=== PATIENT | male | born 1960 | race Caucasian/White ===

== ENCOUNTER 2018-08-12 09:05 | Inpatient (IN) | payer OTHER ==
--- OUTSIDE RECORDS SUMMARY | 2018-08-12 20:26 | XMS REPORT | Clinical Summary ---
:1960 Author Organization [facility] Address [address] [place] [address] Care Team Providers Name Role Phone Unknown, Phys Primary Care Provider Unavailable Allergies Active Allergy Reactions Severity Noted Date Comments Penicillins Hives 01/17/2017 Current Medications Prescription Sig. Disp. Refills Start Date End Date Status aspirin 81 mg chewable tablet 01/10/2017 Active atorvastatin (LIPITOR) 80 MG tablet 01/10/2017 Active ACCU-CHEK AMBER PLUS TEST STRP strip 12/29/2016 Active test strips carvedilol (COREG) 25 MG tablet 01/04/2017 Active clopidogrel (PLAVIX) 75 mg tablet 01/04/2017 Active isosorbide mononitrate (IMDUR) 60 MG 24 01/10/2017 Active hr tablet KLOR-CON 10 10 mEq CR tablet 01/04/2017 Active lisinopril (PRINIVIL,ZESTRIL) 40 mg 10/20/2016 Active tablet metFORMIN XR (GLUCOPHAGE-XR) 500 mg 24 11/17/2016 Active hr tablet Active Problems Problem Noted Date Ischemic cardiomyopathy 01/17/2017 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 Hypertension 01/17/2017 Centrilobular emphysema (HCC) 01/17/2017 Chest pain 01/17/2017 Family History Medical History Relation Name Comments Diabetes Brother Heart disease Brother Hypertension Brother Stroke Brother Diabetes Father Heart disease Father Hypertension Father Stroke Father Diabetes Mother Hypertension Mother Stroke Mother Diabetes Sister Hypertension Sister Relation Name Status Comments Brother Father Mother Alive Sister Social History Tobacco Use Types Packs/Day Years Used Date Former Smoker Cigarettes Alcohol Use Drinks/Week oz/Week Comments No Sex Assigned at Date Recorded Not on file Last Filed Vital Signs Not on file Plan of Treatment Health Maintenance Due Date Last Done Comments DIABETIC FOOT EXAM 1971 DIABETIC RETINAL EYE EXAM 1971 URINE MICROALBUMIN 1971 COLON CANCER SCREENING 2011 SHINGRIX VACCINE (#1) 2011 INFLUENZA VACCINE 06/12/2018 Results Not on fileafter 08/11/2017 Insurance Payer Benefit Plan / Group Subscriber ID Type Phone Address AETNA AETNA HMO,POS,EPO, MC/EC xxxxxxxxxx HMO Home: [id number] [phone] [id number]
[2018-08-12] MEDS ORDERED: GLUCAGON 1 MG/VIAL IM PRN (20:38)
[2018-08-12] MEDS ORDERED: D50W 25 GM/50 ML SYRINGE IV PRN (20:38)
[2018-08-12] MEDS: BUMETANIDE 1 MG TABLET PO SCH (22:10)
[2018-08-12] MEDS: ATORVASTATIN 40 MG TAB PO SCH (22:10)
[2018-08-12 23:19] LABS: Urine Appearance CLEAR; Urine Bilirubin NEGATIVE (NEG); Urine Blood NEGATIVE (NEG); Urine Color YELLOW; Urine Glucose 3+ (NEG); Urine Protein 1+ (NEG); Urine Specific Gravity 1.025 (1.005-1.030); Urine pH 5.5 (5.0-7.0)
[2018-08-12 23:59] LABS: Urine Bacteria <20 /HPF (NONE SEEN); Urine Culture Reflex Order NOT NEEDED; Urine RBC NONE SEEN /HPF (NONE SEEN)
--- NOTE | 2018-08-13 02:45 | FAST ---
SHIFT START DATE/TIME: 08/12/2018 19:00 (CDT) SHIFT END DATE/TIME: 08/13/2018 07:00 (CDT) NAME CRYSTAL BEAVER DATE OF : 1960 DATE OF ADMISSION: 08/12/2018 20:25 (CDT) PHONE: AGE: 57 N# [id number] GENDER: Male ENCOUNTER PHYSICIAN: Dr. Edmundo Glasgow M.D. ADMISSION DIAGNOSIS: - Stroke 01 - Left Body (Right Brain) (01.1) small right thalamic intraparenchymal hematoma. EATING: Activity did not occur on this shift EATING - SCORE: 0-UNK GROOMING: Wash, rinse, and dry hands GROOMING - STEP 1: Does the patient require assistance when grooming? Yes. GROOMING - STEP 2: Does the patient require the assistance of a helper? No. The patient only requires an assistive devic e, OR takes more than reasonable time to groom, OR there is a concern for safety as the patient groom s GROOMING - SCORE: 6-NICOLAS BATHING: Activity did not occur on this shift BATHING - SCORE: 0-UNK DRESSING - UPPER BODY: Patient is not dressing in public clothing ARTICLES SCORE Total number of steps: 0 DRESSING - UPPER BODY - SCORE: 0-UNK DRESSING - LOWER BODY: Patient is not dressing in public clothing ARTICLES SCORE Total number of steps: 0 DRESSING - LOWER BODY - SCORE: 0-UNK TOILETING: TOILETING - STEP 1: Does the patient require assistance with toileting? Yes. TOILETING - STEP 2: Does the patient require the assistance of a helper? No. TOILETING - SCORE: 6-NICOLAS BLADDER MANAGEMENT: BLADDER MANAGEMENT - STEP 1: Does the patient control the bladder completely and intentionally without equipment or devices or med ications, and is always continent? Yes. BLADDER MANAGEMENT - SCORE: 7-IND BOWEL MANAGEMENT: Activity did not occur on this shift BOWEL MANAGEMENT - SCORE: 7-IND TRANSFERS: BED, CHAIR, WHEELCHAIR: TRANSFERS: BED, CHAIR, WHEELCHAIR - STEP 1: Does the patient require assistance with bed, chair, or wheelchair transfers? Yes. TRANSFERS: BED, CHAIR, WHEELCHAIR - STEP 2: Does the patient require the assistance of a helper? No. Patient only requires an assistive device fo r bed, chair, wheelchair transfers such as a sliding board, grab bar, or brace, OR s/he takes more th an reasonable time, OR there is a safety concern when s/he performs the transfers TRANSFERS: BED, CHAIR, WHEELCHAIR - SCORE: 6-NICOLAS TRANSFERS: TOILET: TRANSFERS: TOILET - STEP 1: Does the patient require assistance with toilet transfers? Yes. TRANSFERS: TOILET - STEP 2: Does the patient require the assistance of a helper? No. Patient only requires an assistive device ayers ch as a grab bar or special seat, OR s/he takes more than reasonable time to perform toilet transfers , OR there is a safety concern when s/he performs toilet transfers. TRANSFERS: TOILET - SCORE: 6-NICOLAS TRANSFERS: SHOWER: Activity did not occur on this shift TRANSFERS: SHOWER - SCORE: 0-UNK TRANSFERS: TUB: Activity did not occur on this shift TRANSFERS: TUB - SCORE: 0-UNK LOCOMOTION: WALK: Activity did not occur on this shift LOCOMOTION: WALK - SCORE: 0-UNK LOCOMOTION: WHEELCHAIR: Activity did not occur on this shift LOCOMOTION: WHEELCHAIR - SCORE: 0-UNK COMPREHENSION: COMPREHENSION: TYPE: Both COMPREHENSION - STEP 1: Does the patient require help to understand complex and abstract ideas (such as current events, finan luc, discharge planning, medical issues, relationships, etc)? No. COMPREHENSION - STEP 2: Does the patient need extra time, require an assistive device (such as glasses for visual comprehensi on or a hearing aid for auditory comprehension) or does s/he have mild difficulty understanding compl ex and abstract information? Yes. COMPREHENSION - SCORE: 6-NICOLAS EXPRESSION EXPRESSION: TYPE: Both EXPRESSION - STEP 1: Does the patient require help expressing complex and abstract ideas (such as current events, finances , discharge planning, medical issues, relationships, etc)? No. EXPRESSION - STEP 2: Does the patient need extra time, require an assistive device (such as augmentive communication syste m or a communication board), OR does s/he have mild difficulty expressing complex and abstract ideas (including mild dysarthria or mild word-find problems)? No. EXPRESSION - SCORE: 7-IND SOCIAL INTERACTION: SOCIAL INTERACTION - STEP 1: Does the patient require a helper to interact with others in social and therapeutic situations? No. SOCIAL INTERACTION - STEP 2: Does the patient need extra time in social situations, OR does s/he interact with staff, other patien ts, and family members ONLY in structured environments, OR does s/he require medication for social in teraction? No. SOCIAL INTERACTION - SCORE: 7-IND PROBLEM SOLVING: PROBLEM SOLVING - STEP 1: Does the patient need help to solve complex problems such as managing a checking account or confronti ng interpersonal problems? No. PROBLEM SOLVING - STEP 2: Does the patient require extra time to make decisions or solve problems, OR does s/he have slight dif ficulty reading, initiating, or self-correcting in unfamiliar situations? Yes, patient needs extra ti me. PROBLEM SOLVING - SCORE: 6-NICOLAS MEMORY: MEMORY - STEP 1: Does the patient need help to remember frequently encountered people, daily routines, and executing r equests? No. MEMORY - STEP 2: Does the patient have slight difficulty recognizing frequently encountered people, daily routines, or executing requests without the need for repetition or using self-initiated or environmental cues to remember? No. MEMORY - SCORE: 7-IND SIGNATURE PANEL: The following modified sections: Eating - Score, Grooming - Score, Dressing - Upper Body - Score, Miles ssing - Lower Body - Score, Toileting - Score, Bladder Management - Score, Bowel Management - Score, Transfers: Bed, Chair, Wheelchair - Score, Transfers: Toilet - Score, Transfers: Shower - Score, Thompson sfers: Tub - Score, Locomotion: Walk - Score, Locomotion: Wheelchair - Score, Comprehension - Score, Expression - Score, Social Interaction - Score, Problem Solving - Score, Memory - Score were [electro nically] signed by Nafisa Alonso CNA on SunAug 13 2018 02:44:50 GMT-0500 (Central Daylight Time)
[2018-08-13 06:03] LABS: Absolute Lymphocytes (CBC) 1.2 K/uL (0.7-4.9); Absolute Monocytes 1.1 K/uL (0.1-1.3); Absolute Neutrophil 4.6 K/uL (1.8-8.0); Basophils % 0.9 % (0-1.3); Eosinophils % 3.7 % (0-4.4); Hematocrit 48.6 % (39.6-49.0); Lymphocytes % 16.2 % (15.3-44.8); MCH 29.8 pg (27.0-35.0); MPV 9.7 fL (7.6-11.3); Monocytes % 15.2 % (3.3-12.3); RBC Red Blood Cell Count 5.53 M/uL (4.33-5.43)
[2018-08-13 06:31] LABS: Albumin 3.4 g/dL (3.4-5.0); Magnesium 2.2 mg/dL (1.8-2.4); Potassium 3.8 mmol/L (3.5-5.1); Prealbumin 22.5 mg/dL (20-40)
[2018-08-13] MEDS: INSULIN -REGULAR HUMAN 50 UNIT/0.5 ML ML SQ SCH ×4 (07:30→20:38)
[2018-08-13] MEDS ORDERED: INSULIN GLARGINE 100 UNITS/ML SQ SCH ×2 (08:00)
[2018-08-13] MEDS ORDERED: LEVEMIR SQ SCH (08:00)
[2018-08-13] MEDS ORDERED: INSULIN LISPRO 100 UNIT/1 ML SQ SCH (08:00)
[2018-08-13] MEDS ORDERED: NOVOLOG SQ SCH (08:00)
[2018-08-13] MEDS ORDERED: ENOXAPARIN 30 MG/0.3 ML SQ SCH (08:00)
[2018-08-13] MEDS: CLOPIDOGREL 75 MG TABLET PO SCH (08:41)
[2018-08-13] MEDS: DIGOXIN 0.125 MG TABLET PO SCH (08:41)
[2018-08-13] MEDS: BUMETANIDE 1 MG TABLET PO SCH ×2 (08:42→20:25)
[2018-08-13] MEDS: POTASSIUM CL SA 10 MEQ TAB PO SCH (08:42)
[2018-08-13] MEDS: SERTRALINE HCL 50 MG TAB PO SCH (08:42)
[2018-08-13] MEDS: ISOSORBIDE MONO SR 60 MG TAB PO SCH (08:43)
[2018-08-13] MEDS: CARVEDILOL 25 MG TAB PO SCH ×2 (08:43→16:15)
[2018-08-13] MEDS: ASPIRIN EC 81 MG TAB PO SCH (08:43)
[2018-08-13] MEDS: AMLODIPINE 10 MG TAB PO SCH (08:43)
[2018-08-13] MEDS: NOVOLOG SQ SCH ×2 (11:41→16:40)
--- NOTE | 2018-08-13 15:03 | FAST ---
SHIFT START DATE/TIME: 08/13/2018 07:00 (CDT) SHIFT END DATE/TIME: 08/13/2018 19:00 (CDT) NAME CRYSTAL BEAVER DATE OF : 1960 DATE OF ADMISSION: 08/12/2018 20:25 (CDT) PHONE: AGE: 57 N# [id number] GENDER: Male ENCOUNTER PHYSICIAN: Dr. Edmundo Glasgow M.D. ADMISSION DIAGNOSIS: - Stroke 01 - Left Body (Right Brain) (01.1) small right thalamic intraparenchymal hematoma. EATING: EATING - STEP 1: Does the patient require assistance when eating? Yes. EATING - STEP 2: Does the patient require the assistance of a helper? No, patient only requires an assistive device, O R s/he takes more than reasonable time to eat, OR there is a safety concern, OR s/he requires modifie d food consistency EATING - SCORE: 6-NICOLAS GROOMING: Activity did not occur on this shift GROOMING - SCORE: 0-UNK BATHING: Activity did not occur on this shift BATHING - SCORE: 0-UNK DRESSING - UPPER BODY: Activity did not occur on this shift ARTICLES SCORE Total number of steps: 0 DRESSING - UPPER BODY - SCORE: 0-UNK DRESSING - LOWER BODY: Activity did not occur on this shift ARTICLES SCORE Total number of steps: 0 DRESSING - LOWER BODY - SCORE: 0-UNK TOILETING: TOILETING - STEP 1: Does the patient require assistance with toileting? Yes. TOILETING - STEP 2: Does the patient require the assistance of a helper? Yes. TOILETING - STEP 3: How much assistance does the patient require from the helper? Only supervision TOILETING - SCORE: 5-SUP BLADDER MANAGEMENT: BLADDER MANAGEMENT - STEP 1: Does the patient control the bladder completely and intentionally without equipment or devices or med ications, and is always continent? No. BLADDER MANAGEMENT - STEP 2: Does the patient require the assistance of a helper? No, patient only requires extra time BLADDER MANAGEMENT - SCORE: 6-NICOLAS BOWEL MANAGEMENT: Activity did not occur on this shift BOWEL MANAGEMENT - SCORE: 7-IND TRANSFERS: BED, CHAIR, WHEELCHAIR: TRANSFERS: BED, CHAIR, WHEELCHAIR - STEP 1: Does the patient require assistance with bed, chair, or wheelchair transfers? Yes. TRANSFERS: BED, CHAIR, WHEELCHAIR - STEP 2: Does the patient require the assistance of a helper? No. Patient only requires an assistive device fo r bed, chair, wheelchair transfers such as a sliding board, grab bar, or brace, OR s/he takes more th an reasonable time, OR there is a safety concern when s/he performs the transfers TRANSFERS: BED, CHAIR, WHEELCHAIR - SCORE: 6-NICOLAS TRANSFERS: TOILET: TRANSFERS: TOILET - STEP 1: Does the patient require assistance with toilet transfers? Yes. TRANSFERS: TOILET - STEP 2: Does the patient require the assistance of a helper? Yes. TRANSFERS: TOILET - STEP 3: How much assistance does the patient require from the helper? Only supervision, cuing, coaxing, OR he lp to set out transfer equipment or to lock brakes and/or lift foot rests TRANSFERS: TOILET - SCORE: 5-SUP TRANSFERS: SHOWER: Activity did not occur on this shift TRANSFERS: SHOWER - SCORE: 0-UNK TRANSFERS: TUB: Activity did not occur on this shift TRANSFERS: TUB - SCORE: 0-UNK LOCOMOTION: WALK: Activity did not occur on this shift LOCOMOTION: WALK - SCORE: 0-UNK LOCOMOTION: WHEELCHAIR: Activity did not occur on this shift LOCOMOTION: WHEELCHAIR - SCORE: 0-UNK COMPREHENSION: COMPREHENSION: TYPE: Both COMPREHENSION - STEP 1: Does the patient require help to understand complex and abstract ideas (such as current events, finan luc, discharge planning, medical issues, relationships, etc)? No. COMPREHENSION - STEP 2: Does the patient need extra time, require an assistive device (such as glasses for visual comprehensi on or a hearing aid for auditory comprehension) or does s/he have mild difficulty understanding compl ex and abstract information? Yes. COMPREHENSION - SCORE: 6-NICOLAS EXPRESSION EXPRESSION: TYPE: Both EXPRESSION - STEP 1: Does the patient require help expressing complex and abstract ideas (such as current events, finances , discharge planning, medical issues, relationships, etc)? No. EXPRESSION - STEP 2: Does the patient need extra time, require an assistive device (such as augmentive communication syste m or a communication board), OR does s/he have mild difficulty expressing complex and abstract ideas (including mild dysarthria or mild word-find problems)? Yes. EXPRESSION - SCORE: 6-NICOLAS SOCIAL INTERACTION: SOCIAL INTERACTION - STEP 1: Does the patient require a helper to interact with others in social and therapeutic situations? No. SOCIAL INTERACTION - STEP 2: Does the patient need extra time in social situations, OR does s/he interact with staff, other patien ts, and family members ONLY in structured environments, OR does s/he require medication for social in teraction? Yes, patient needs extra time SOCIAL INTERACTION - SCORE: 6-NICOLAS PROBLEM SOLVING: PROBLEM SOLVING - STEP 1: Does the patient need help to solve complex problems such as managing a checking account or confronti ng interpersonal problems? No. PROBLEM SOLVING - STEP 2: Does the patient require extra time to make decisions or solve problems, OR does s/he have slight dif ficulty reading, initiating, or self-correcting in unfamiliar situations? No. PROBLEM SOLVING - SCORE: 7-IND MEMORY: MEMORY - STEP 1: Does the patient need help to remember frequently encountered people, daily routines, and executing r equests? No. MEMORY - STEP 2: Does the patient have slight difficulty recognizing frequently encountered people, daily routines, or executing requests without the need for repetition or using self-initiated or environmental cues to remember? Yes. MEMORY - SCORE: 6-NICOLAS SIGNATURE PANEL: The following modified sections: Eating - Score, Grooming - Score, Bathing - Score, Dressing - Upper Body - Score, Dressing - Lower Body - Score, Toileting - Score, Bladder Management - Score, Bowel Man agement - Score, Transfers: Bed, Chair, Wheelchair - Score, Transfers: Toilet - Score, Transfers: Yee wer - Score, Transfers: Tub - Score, Locomotion: Walk - Score, Locomotion: Wheelchair - Score, Compre hension - Score, Expression - Score, Social Interaction - Score, Problem Solving - Score, Memory - Sc ore were [electronically] signed by Steven Berry on SunAug 13 2018 15:02:22 GMT-0500 (Central Daylight Time)
[2018-08-13] MEDS: ATORVASTATIN 40 MG TAB PO SCH (20:25)
[2018-08-13] MEDS: LEVEMIR SQ SCH (20:27)
[2018-08-14] MEDS: INSULIN -REGULAR HUMAN 50 UNIT/0.5 ML ML SQ SCH ×4 (07:30→20:39)
[2018-08-14] MEDS: NOVOLOG SQ SCH ×3 (08:08→17:23)
[2018-08-14] MEDS: POTASSIUM CL SA 10 MEQ TAB PO SCH (08:09)
[2018-08-14] MEDS: BUMETANIDE 1 MG TABLET PO SCH ×2 (08:09→20:38)
[2018-08-14] MEDS: AMLODIPINE 10 MG TAB PO SCH (08:10)
[2018-08-14] MEDS: CARVEDILOL 25 MG TAB PO SCH ×2 (08:11→17:00)
[2018-08-14] MEDS: ASPIRIN EC 81 MG TAB PO SCH (08:11)
[2018-08-14] MEDS: SERTRALINE HCL 50 MG TAB PO SCH (08:11)
[2018-08-14] MEDS: CLOPIDOGREL 75 MG TABLET PO SCH (08:12)
[2018-08-14] MEDS: ISOSORBIDE MONO SR 60 MG TAB PO SCH (08:12)
[2018-08-14] MEDS: LEVEMIR SQ SCH ×2 (08:14→20:45)
[2018-08-14] MEDS: DIGOXIN 0.125 MG TABLET PO SCH (08:18)
--- NOTE | 2018-08-14 16:35 | FAST ---
SHIFT START DATE/TIME: 08/14/2018 07:00 (CDT) SHIFT END DATE/TIME: 08/14/2018 19:00 (CDT) NAME CRYSTAL BEAVER DATE OF : 1960 DATE OF ADMISSION: 08/12/2018 20:25 (CDT) PHONE: AGE: 57 SSN# [id number] GENDER: Male ENCOUNTER PHYSICIAN: Dr. Edmundo Glasgow M.D. ADMISSION DIAGNOSIS: - Stroke 01 - Left Body (Right Brain) (01.1) small right thalamic intraparenchymal hematoma. EATING: EATING - STEP 1: Does the patient require assistance when eating? Yes. EATING - STEP 2: Does the patient require the assistance of a helper? No, patient only requires an assistive device, O R s/he takes more than reasonable time to eat, OR there is a safety concern, OR s/he requires modifie d food consistency EATING - SCORE: 6-NICOLAS GROOMING: Comb/brush hair Oral care Patient shaved Wash, rinse, and dry face Wash, rinse, and dry hands GROOMING - STEP 1: Does the patient require assistance when grooming? Yes. GROOMING - STEP 2: Does the patient require the assistance of a helper? No. The patient only requires an assistive devic e, OR takes more than reasonable time to groom, OR there is a concern for safety as the patient groom s GROOMING - SCORE: 6-NICOLAS BATHING: Activity did not occur on this shift BATHING - SCORE: 0-UNK DRESSING - UPPER BODY: Button down shirt or blouse - NOT tucked in (four steps) T-shirt/pullover shirt (four steps) ARTICLES SCORE Total number of steps: 8 DRESSING - UPPER BODY - STEP 1: Does the patient require help when dressing above the waist? Yes. DRESSING - UPPER BODY - STEP 2: Does the patient require the assistance of a helper? No. Patient only requires an assistive device, s uch as a button hook, velcro, or career services coordinator. OR s/he takes more than reasonable time as s/he dresses the upper body. OR there is a concern for safety when s/he dresses the upper body DRESSING - UPPER BODY - SCORE: 6-NICOLAS DRESSING - LOWER BODY: Elastic waist pants (three steps) Slip-on shoe - Left foot (one step) Slip-on shoe - Right foot (one step) ARTICLES SCORE Total number of steps: 5 DRESSING - LOWER BODY - STEP 1: Does the patient require help when dressing below the waist? Yes. DRESSING - LOWER BODY - STEP 2: Does the patient require the assistance of a helper? No. Patient requires an assistive device such as a career services coordinator. OR s/he takes more than reasonable time as s/he dresses the lower body, OR there is a con cern for safety when s/he dresses the lower body DRESSING - LOWER BODY - SCORE: 6-NICOLAS TOILETING: TOILETING - STEP 1: Does the patient require assistance with toileting? No. TOILETING - SCORE: 7-IND BLADDER MANAGEMENT: BLADDER MANAGEMENT - STEP 1: Does the patient control the bladder completely and intentionally without equipment or devices or med ications, and is always continent? Yes. BLADDER MANAGEMENT - SCORE: 7-IND BLADDER MANAGEMENT - FREQUENCY OF ACCIDENTS: BLADDER MANAGEMENT(FA) - STEP 1: How many accidents has the patient had during the current shift? 0 BOWEL MANAGEMENT: BOWEL MANAGEMENT - STEP 1: Does the patient control bowels completely and intentionally without equipment devices or medications AND is always continent? Yes. BOWEL MANAGEMENT - SCORE: 7-IND BOWEL MANAGEMENT - FREQUENCY OF ACCIDENTS: BOWEL MANAGEMENT(FA) - STEP 1: How many accidents has the patient had during the current shift? 0 TRANSFERS: BED, CHAIR, WHEELCHAIR: TRANSFERS: BED, CHAIR, WHEELCHAIR - STEP 1: Does the patient require assistance with bed, chair, or wheelchair transfers? No. TRANSFERS: BED, CHAIR, WHEELCHAIR - SCORE: 7-IND TRANSFERS: TOILET: TRANSFERS: TOILET - STEP 1: Does the patient require assistance with toilet transfers? No. TRANSFERS: TOILET - SCORE: 7-IND TRANSFERS: SHOWER: Activity did not occur on this shift TRANSFERS: SHOWER - SCORE: 0-UNK TRANSFERS: TUB: Activity did not occur on this shift TRANSFERS: TUB - SCORE: 0-UNK LOCOMOTION: WALK: LOCOMOTION: WALK - STEP 1: Does the patient need help to walk 150 feet? Yes. LOCOMOTION: WALK - STEP 2: How much assistance does the patient require to walk a minimum of 150 feet? Only supervision, cuing, or coaxing LOCOMOTION: WALK - SCORE: 5-SUP LOCOMOTION: WHEELCHAIR: Activity did not occur on this shift LOCOMOTION: WHEELCHAIR - SCORE: 0-UNK COMPREHENSION: COMPREHENSION: TYPE: Both COMPREHENSION - STEP 1: Does the patient require help to understand complex and abstract ideas (such as current events, finan luc, discharge planning, medical issues, relationships, etc)? No. COMPREHENSION - STEP 2: Does the patient need extra time, require an assistive device (such as glasses for visual comprehensi on or a hearing aid for auditory comprehension) or does s/he have mild difficulty understanding compl ex and abstract information? No. COMPREHENSION - SCORE: 7-IND EXPRESSION EXPRESSION: TYPE: Both EXPRESSION - STEP 1: Does the patient require help expressing complex and abstract ideas (such as current events, finances , discharge planning, medical issues, relationships, etc)? No. EXPRESSION - STEP 2: Does the patient need extra time, require an assistive device (such as augmentive communication syste m or a communication board), OR does s/he have mild difficulty expressing complex and abstract ideas (including mild dysarthria or mild word-find problems)? No. EXPRESSION - SCORE: 7-IND SOCIAL INTERACTION: SOCIAL INTERACTION - STEP 1: Does the patient require a helper to interact with others in social and therapeutic situations? No. SOCIAL INTERACTION - STEP 2: Does the patient need extra time in social situations, OR does s/he interact with staff, other patien ts, and family members ONLY in structured environments, OR does s/he require medication for social in teraction? No. SOCIAL INTERACTION - SCORE: 7-IND PROBLEM SOLVING: PROBLEM SOLVING - STEP 1: Does the patient need help to solve complex problems such as managing a checking account or confronti ng interpersonal problems? No. PROBLEM SOLVING - STEP 2: Does the patient require extra time to make decisions or solve problems, OR does s/he have slight dif ficulty reading, initiating, or self-correcting in unfamiliar situations? No. PROBLEM SOLVING - SCORE: 7-IND MEMORY: MEMORY - STEP 1: Does the patient need help to remember frequently encountered people, daily routines, and executing r equests? No. MEMORY - STEP 2: Does the patient have slight difficulty recognizing frequently encountered people, daily routines, or executing requests without the need for repetition or using self-initiated or environmental cues to remember? No. MEMORY - SCORE: 7-IND SIGNATURE PANEL: The following modified sections: Eating - Score, Grooming - Score, Bathing - Score, Dressing - Upper Body - Score, Dressing - Lower Body - Score, Toileting - Score, Bladder Management - Score, Bowel Man agement - Score, Transfers: Bed, Chair, Wheelchair - Score, Transfers: Toilet - Score, Transfers: Yee wer - Score, Transfers: Tub - Score, Locomotion: Walk - Score, Locomotion: Wheelchair - Score, Compre hension - Score, Expression - Score, Social Interaction - Score, Problem Solving - Score, Memory - Sc ore were [electronically] signed by Emperatriz Song, C.N.ARachael on SunAug 14 2018 16:34:37 T-0500 (Centra l Daylight Time)
--- NOTE | 2018-08-14 17:20 | R.PN ---
ENCOUNTER DATE AND TIME: 08/14/2018 17:15 (CDT) NAME CRYSTAL BEAVER DATE OF : 1960 DATE OF ADMISSION: 08/12/2018 20:25 (CDT) small right thalamic intraparenchymal hematomaCHIEF COMPLAINT: Right thalamic hemorragic stroke SUBJECTIVE: Pt denied any Shortness of Breath. Pt denied any depression. Ambulated 550' with standby assistance without an assistive device. He will have a day pass to obtain items for cooking activities today. VITAL SIGNS Temperature: 97.8 F SBP/DBP: 154/96 Pulse: 73 Resp: 16 MEDICATION ALLERGIES: No Known Drug Allergies (NKDA) ENVIRONMENTAL ALLERGIES: - Substance Allergies None Known - Other Allergies None Known NURSING: - Shower allowing shower - Lab Results blood Sugar Check ACHS - Bladder care per protocol - Skin care per protocol PRECAUTIONS: - Weight Bearing Precaution WBAT left LE ACTIVITIES OOB only with supervision THERAPIES: - Occupational Therapy Evaluate and Treat. Cognitive Retraining. Visual Perceptual Training. - Speech Therapy Memory Strategies. Expressive Language Skills. Speech Intelligibility Training. Cognitive Training. R eceptive Language Skills. - Physical Therapy Evaluate and Treat. PHYSICAL EXAM - Gen Alert and awake Lying in bed No apparent distress Oriented to: person, time, and place - Skin No skin breakdown. No abnormalities - Eyes No abnormalities - ENMT No abnormalities - Neck No abnormalities - CVS RRR - Chest Clear - Abd Soft - GI Non distended Deferred - No abnormalities - Ext No significant edema - MSK Unremarkable - Neuro Incoordination, left sided numbness and dysmetria, unsteady gait - Psych No abnormalities ASSESSMENT: Pt. is a 57 yo Right-handed male.On 08/06/2018 Pt. presented to [facility] with sudden onset of left-side weakness.On 08/06/2018 he was admitted to [facility] with diagnosis small rig ht thalamic intraparenchymal hematoma.His impairment category is Stroke 01 - Left Body (Right Brain) (01.1).Pre-morbidly, Pt. was independent/mod-I in Communication, Social Cognition, Self-Care, Sphinc ter Control, Transfers Control, and Locomotion; and he had good Sphincter Control.Currently, he has d eficits of Communication, Social Cognition, Balance, Self-Care, Endurance, Safety Awareness, Transfer s Control, and Locomotion.Pt. is now referred to [facility] for acute in-patie nt rehabilitation in order to maximize patient's functional independence in activities of daily livin g, strength, ROM, and mobility.- Rehab Goal Patient has realistic goal of being discharged at assistance level 6-Eddie to reside at Home with Fam maurice/Relatives. MDM/PLAN: - Physical Therapy Gait dysfunction - to improve, our physical therapists will perform initial evaluation of pt's statu s upon admission and devise an individualized program for Gait Training, and Wheel Chair mobility Inability to transfer - to improve, our physical therapists will perform initial evaluation of pt's status upon admission and devise an individualized program for Bed mobility Need for home safety evaluation - to improve, our physical therapists will perform initial evaluatio n of pt's status upon admission and devise an individualized program for Home Evaluation Need in caregiver upon discharge - to improve, our physical therapists will perform initial evaluati on of pt's status upon admission and devise an individualized program for Caregiver Training Edema - to improve, our physical therapists will perform initial evaluation of pt's status upon admis gracia and devise an individualized program for Elevation Training, and Lymphedema Therapy New precaution - to improve, our physical therapists will perform initial evaluation of pt's status upon admission and devise an individualized program for Patient precaution education Poor balance - to improve, our physical therapists will perform initial evaluation of pt's status up on admission and devise an individualized program for Balance Training Poor endurance - to improve, our physical therapists will perform initial evaluation of pt's status upon admission and devise an individualized program for Endurance Training Weakness - to improve, our physical therapists will perform initial evaluation of pt's status upon a dmission and devise an individualized program for Aquatic Therapy, Neuromuscular Reeducation, and Str engthening Achieving independence - to improve, our physical therapists will perform initial evaluation of pt's status upon admission and devise an individualized program for Community Reintegration Activities - Occupational Therapy ADL deficits - to improve, our occupation therapists will perform initial evaluation of pt's status upon admission and devise an individualized program for Bathing, Bed mobility, Community Reintegratio n, Cooking, Dressing, Eating, Fine Motor Skills, Grooming, Homemaking, Kitchen Mobility, Laundry, Pat ient Education, Safety Awareness, Splinting - Positioning, Transfers(Toilet, Tub, Shower), and Wheel Chair Management Cognitive deficits - to improve, our occupation therapists will perform initial evaluation of pt's s tatus upon admission and devise an individualized program for Cognition - orientation Need for pet caretaker - to improve, our occupation therapists will perform initial evaluation of pt's status upon admission and devise an individualized program for Caregiver Training Weakness - to improve, our occupation therapists will perform initial evaluation of pt's status upon admission and devise an individualized program for Aquatic Therapy, Balance, Endurance, UE ROM, and UE strengthening - Diet Type Continue Cardiac - Diet - Liquid Texture Continue Regular - Tube Feed Continue N/A - Lab Results blood Sugar Check ACHS - Bladder care per protocol - Weight Bearing Precaution WBAT left LE - Skin care per protocol - Diet - Solid Texture Continue Regular - Shower allowing shower for Dementia, TBI, Stroke, or others FUNCTIONAL STATUS: UPDATED AT WEEKLY TEAM CONFERENCE - Bladder Same accident frequency: 7-Ind - No accidents in the past 7 days - Bowel Same accident frequency: 7-Ind - No accidents in the past 7 days - Walking Same score based on distance walked: 1(<=50ft) FUNCTIONAL STATUS: - Self-Care A. Eating sup B. Grooming Arely C. Bathing Arely D. Dressing - Upper Eddie E. Dressing - Lower Arely F. Toileting Arely - Sphincter Control G: Bladder control Ind H: Bowel control Ind - Transfers Control I. Bed/Chair/Wheelchair CGA J. Toilet CGA K. Tub/Shower CGA - Locomotion L. Walk/Wheelchair (B) Dep M. Stairs - Communication N. Comprehension (B) sup O. Expression (B) sup - Social Cognition P. Social Interaction sup Q. Problem Solving sup R. Memory sup - Endurance Fair - Balance Poor - Safety Awareness Poor CURRENT FUNC. DEFICITS: Communication, Social Cognition, Balance, Self-Care, Endurance, Safety Awareness, Transfers Control, and Locomotion SIGNATURE PANEL: (CDT)
[2018-08-14] MEDS: ATORVASTATIN 40 MG TAB PO SCH (20:38)
--- NOTE | 2018-08-15 01:15 | FAST ---
SHIFT START DATE/TIME: 08/14/2018 19:00 (CDT) SHIFT END DATE/TIME: 08/15/2018 07:00 (CDT) NAME CRYSTAL BEAVER DATE OF : 1960 DATE OF ADMISSION: 08/12/2018 20:25 (CDT) PHONE: AGE: 57 N# [id number] GENDER: Male ENCOUNTER PHYSICIAN: Dr. Edmundo Glasgow M.D. ADMISSION DIAGNOSIS: - Stroke 01 - Left Body (Right Brain) (01.1) small right thalamic intraparenchymal hematoma. EATING: Activity did not occur on this shift EATING - SCORE: 0-UNK GROOMING: Oral care Wash, rinse, and dry face Wash, rinse, and dry hands GROOMING - STEP 1: Does the patient require assistance when grooming? No. GROOMING - SCORE: 7-IND BATHING: Activity did not occur on this shift BATHING - SCORE: 0-UNK DRESSING - UPPER BODY: Patient is not dressing in public clothing ARTICLES SCORE Total number of steps: 0 DRESSING - UPPER BODY - SCORE: 0-UNK DRESSING - LOWER BODY: Patient is not dressing in public clothing ARTICLES SCORE Total number of steps: 0 DRESSING - LOWER BODY - SCORE: 0-UNK TOILETING: TOILETING - STEP 1: Does the patient require assistance with toileting? No. TOILETING - SCORE: 7-IND BLADDER MANAGEMENT: BLADDER MANAGEMENT - STEP 1: Does the patient control the bladder completely and intentionally without equipment or devices or med ications, and is always continent? Yes. BLADDER MANAGEMENT - SCORE: 7-IND BOWEL MANAGEMENT: BOWEL MANAGEMENT - STEP 1: Does the patient control bowels completely and intentionally without equipment devices or medications AND is always continent? Yes. BOWEL MANAGEMENT - SCORE: 7-IND TRANSFERS: BED, CHAIR, WHEELCHAIR: TRANSFERS: BED, CHAIR, WHEELCHAIR - STEP 1: Does the patient require assistance with bed, chair, or wheelchair transfers? No. TRANSFERS: BED, CHAIR, WHEELCHAIR - SCORE: 7-IND TRANSFERS: TOILET: TRANSFERS: TOILET - STEP 1: Does the patient require assistance with toilet transfers? No. TRANSFERS: TOILET - SCORE: 7-IND TRANSFERS: SHOWER: Activity did not occur on this shift TRANSFERS: SHOWER - SCORE: 0-UNK TRANSFERS: TUB: Activity did not occur on this shift TRANSFERS: TUB - SCORE: 0-UNK LOCOMOTION: WALK: Activity did not occur on this shift LOCOMOTION: WALK - SCORE: 0-UNK LOCOMOTION: WHEELCHAIR: Activity did not occur on this shift LOCOMOTION: WHEELCHAIR - SCORE: 0-UNK COMPREHENSION: COMPREHENSION: TYPE: Both COMPREHENSION - STEP 1: Does the patient require help to understand complex and abstract ideas (such as current events, finan luc, discharge planning, medical issues, relationships, etc)? No. COMPREHENSION - STEP 2: Does the patient need extra time, require an assistive device (such as glasses for visual comprehensi on or a hearing aid for auditory comprehension) or does s/he have mild difficulty understanding compl ex and abstract information? Yes. COMPREHENSION - SCORE: 6-NICOLAS EXPRESSION EXPRESSION: TYPE: Both EXPRESSION - STEP 1: Does the patient require help expressing complex and abstract ideas (such as current events, finances , discharge planning, medical issues, relationships, etc)? No. EXPRESSION - STEP 2: Does the patient need extra time, require an assistive device (such as augmentive communication syste m or a communication board), OR does s/he have mild difficulty expressing complex and abstract ideas (including mild dysarthria or mild word-find problems)? No. EXPRESSION - SCORE: 7-IND SOCIAL INTERACTION: SOCIAL INTERACTION - STEP 1: Does the patient require a helper to interact with others in social and therapeutic situations? No. SOCIAL INTERACTION - STEP 2: Does the patient need extra time in social situations, OR does s/he interact with staff, other patien ts, and family members ONLY in structured environments, OR does s/he require medication for social in teraction? No. SOCIAL INTERACTION - SCORE: 7-IND PROBLEM SOLVING: PROBLEM SOLVING - STEP 1: Does the patient need help to solve complex problems such as managing a checking account or confronti ng interpersonal problems? No. PROBLEM SOLVING - STEP 2: Does the patient require extra time to make decisions or solve problems, OR does s/he have slight dif ficulty reading, initiating, or self-correcting in unfamiliar situations? No. PROBLEM SOLVING - SCORE: 7-IND MEMORY: MEMORY - STEP 1: Does the patient need help to remember frequently encountered people, daily routines, and executing r equests? No. MEMORY - STEP 2: Does the patient have slight difficulty recognizing frequently encountered people, daily routines, or executing requests without the need for repetition or using self-initiated or environmental cues to remember? No. MEMORY - SCORE: 7-IND SIGNATURE PANEL: The following modified sections: Eating - Score, Grooming - Score, Dressing - Upper Body - Score, Miles ssing - Lower Body - Score, Toileting - Score, Bladder Management - Score, Bowel Management - Score, Transfers: Bed, Chair, Wheelchair - Score, Transfers: Toilet - Score, Transfers: Shower - Score, Thompson sfers: Tub - Score, Locomotion: Walk - Score, Locomotion: Wheelchair - Score, Comprehension - Score, Expression - Score, Social Interaction - Score, Problem Solving - Score, Memory - Score were [electro nically] signed by Nafisa Alonso CNA on SunAug 15 2018 01:15:20 GMT-0500 (Central Daylight Time)
[2018-08-15 06:43] LABS: Absolute Monocytes 1.1 K/uL (0.1-1.3); Absolute Neutrophil 4.3 K/uL (1.8-8.0); Basophils % 1.1 % (0-1.3); Hematocrit 50.3 % (39.6-49.0); Lymphocytes % 14.5 % (15.3-44.8); MCH 29.7 pg (27.0-35.0); MCV 86.9 fL (80-100); MPV 9.5 fL (7.6-11.3); Monocytes % 16.6 % (3.3-12.3); RBC Red Blood Cell Count 5.79 M/uL (4.33-5.43)
[2018-08-15 07:17] LABS: Albumin 3.7 g/dL (3.4-5.0); Potassium 3.9 mmol/L (3.5-5.1); Prealbumin 26.2 mg/dL (20-40)
[2018-08-15] MEDS: INSULIN -REGULAR HUMAN 50 UNIT/0.5 ML ML SQ SCH ×4 (07:30→21:14)
[2018-08-15] MEDS: POTASSIUM CL SA 10 MEQ TAB PO SCH (08:12)
[2018-08-15] MEDS: BUMETANIDE 1 MG TABLET PO SCH ×2 (08:12→21:08)
[2018-08-15] MEDS: AMLODIPINE 10 MG TAB PO SCH (08:14)
[2018-08-15] MEDS: ISOSORBIDE MONO SR 60 MG TAB PO SCH (08:14)
[2018-08-15] MEDS: CLOPIDOGREL 75 MG TABLET PO SCH (08:14)
[2018-08-15] MEDS: ASPIRIN EC 81 MG TAB PO SCH (08:14)
[2018-08-15] MEDS: SERTRALINE HCL 50 MG TAB PO SCH (08:15)
[2018-08-15] MEDS: CARVEDILOL 25 MG TAB PO SCH ×2 (08:15→16:48)
[2018-08-15] MEDS: LEVEMIR SQ SCH ×2 (08:18→21:09)
[2018-08-15] MEDS: NOVOLOG SQ SCH ×3 (08:18→16:50)
[2018-08-15] MEDS: DIGOXIN 0.125 MG TABLET PO SCH (08:19)
[2018-08-15 09:23] LABS: Blood Morphology Comment NOT SEEN (NOT SEEN); Platelet Estimate ADEQ
--- NOTE | 2018-08-15 15:45 | FAST ---
SHIFT START DATE/TIME: 08/15/2018 07:00 (CDT) SHIFT END DATE/TIME: 08/15/2018 19:00 (CDT) NAME CRYSTAL BEAVER DATE OF : 1960 DATE OF ADMISSION: 08/12/2018 20:25 (CDT) PHONE: AGE: 57 SSN# [id number] GENDER: Male ENCOUNTER PHYSICIAN: Dr. Edmundo Glasgow M.D. ADMISSION DIAGNOSIS: - Stroke 01 - Left Body (Right Brain) (01.1) small right thalamic intraparenchymal hematoma. EATING: EATING - STEP 1: Does the patient require assistance when eating? No. EATING - SCORE: 7-IND GROOMING: GROOMING - STEP 1: Does the patient require assistance when grooming? No. GROOMING - SCORE: 7-IND BATHING: Activity did not occur on this shift BATHING - SCORE: 0-UNK DRESSING - UPPER BODY: Button down shirt or blouse - NOT tucked in (four steps) ARTICLES SCORE Total number of steps: 4 DRESSING - UPPER BODY - STEP 1: Does the patient require help when dressing above the waist? No. DRESSING - UPPER BODY - SCORE: 7-IND DRESSING - LOWER BODY: Elastic waist pants (three steps) Slip-on shoe - Left foot (one step) Slip-on shoe - Right foot (one step) Sock - Left foot (one step) Sock - Right foot (one step) Underwear (three steps) ARTICLES SCORE Total number of steps: 10 DRESSING - LOWER BODY - STEP 1: Does the patient require help when dressing below the waist? No. DRESSING - LOWER BODY - SCORE: 7-IND TOILETING: TOILETING - STEP 1: Does the patient require assistance with toileting? No. TOILETING - SCORE: 7-IND BLADDER MANAGEMENT: BLADDER MANAGEMENT - STEP 1: Does the patient control the bladder completely and intentionally without equipment or devices or med ications, and is always continent? Yes. BLADDER MANAGEMENT - SCORE: 7-IND BLADDER MANAGEMENT - FREQUENCY OF ACCIDENTS: BLADDER MANAGEMENT(FA) - STEP 1: How many accidents has the patient had during the current shift? 0 BOWEL MANAGEMENT: BOWEL MANAGEMENT - STEP 1: Does the patient control bowels completely and intentionally without equipment devices or medications AND is always continent? Yes. BOWEL MANAGEMENT - SCORE: 7-IND BOWEL MANAGEMENT - FREQUENCY OF ACCIDENTS: BOWEL MANAGEMENT(FA) - STEP 1: How many accidents has the patient had during the current shift? 0 TRANSFERS: BED, CHAIR, WHEELCHAIR: TRANSFERS: BED, CHAIR, WHEELCHAIR - STEP 1: Does the patient require assistance with bed, chair, or wheelchair transfers? No. TRANSFERS: BED, CHAIR, WHEELCHAIR - SCORE: 7-IND TRANSFERS: TOILET: TRANSFERS: TOILET - STEP 1: Does the patient require assistance with toilet transfers? No. TRANSFERS: TOILET - SCORE: 7-IND TRANSFERS: SHOWER: Activity did not occur on this shift TRANSFERS: SHOWER - SCORE: 0-UNK TRANSFERS: TUB: Activity did not occur on this shift TRANSFERS: TUB - SCORE: 0-UNK LOCOMOTION: WALK: LOCOMOTION: WALK - STEP 1: Does the patient need help to walk 150 feet? No. LOCOMOTION: WALK - STEP 2: Does the patient need an assistive device (such as an orthosis, prosthesis, crutches, or walker) to g o 150 feet, OR does s/he take more than reasonable time, OR is there a concern for safety? No. LOCOMOTION: WALK - SCORE: 7-IND LOCOMOTION: WHEELCHAIR: Activity did not occur on this shift LOCOMOTION: WHEELCHAIR - SCORE: 0-UNK COMPREHENSION: COMPREHENSION: TYPE: Both COMPREHENSION - STEP 1: Does the patient require help to understand complex and abstract ideas (such as current events, finan luc, discharge planning, medical issues, relationships, etc)? No. COMPREHENSION - STEP 2: Does the patient need extra time, require an assistive device (such as glasses for visual comprehensi on or a hearing aid for auditory comprehension) or does s/he have mild difficulty understanding compl ex and abstract information? No. COMPREHENSION - SCORE: 7-IND EXPRESSION EXPRESSION: TYPE: Both EXPRESSION - STEP 1: Does the patient require help expressing complex and abstract ideas (such as current events, finances , discharge planning, medical issues, relationships, etc)? No. EXPRESSION - STEP 2: Does the patient need extra time, require an assistive device (such as augmentive communication syste m or a communication board), OR does s/he have mild difficulty expressing complex and abstract ideas (including mild dysarthria or mild word-find problems)? No. EXPRESSION - SCORE: 7-IND SOCIAL INTERACTION: SOCIAL INTERACTION - STEP 1: Does the patient require a helper to interact with others in social and therapeutic situations? No. SOCIAL INTERACTION - STEP 2: Does the patient need extra time in social situations, OR does s/he interact with staff, other patien ts, and family members ONLY in structured environments, OR does s/he require medication for social in teraction? No. SOCIAL INTERACTION - SCORE: 7-IND PROBLEM SOLVING: PROBLEM SOLVING - STEP 1: Does the patient need help to solve complex problems such as managing a checking account or confronti ng interpersonal problems? No. PROBLEM SOLVING - STEP 2: Does the patient require extra time to make decisions or solve problems, OR does s/he have slight dif ficulty reading, initiating, or self-correcting in unfamiliar situations? No. PROBLEM SOLVING - SCORE: 7-IND MEMORY: MEMORY - STEP 1: Does the patient need help to remember frequently encountered people, daily routines, and executing r equests? No. MEMORY - STEP 2: Does the patient have slight difficulty recognizing frequently encountered people, daily routines, or executing requests without the need for repetition or using self-initiated or environmental cues to remember? No. MEMORY - SCORE: 7-IND SIGNATURE PANEL: The following modified sections: Eating - Score, Grooming - Score, Bathing - Score, Dressing - Upper Body - Score, Dressing - Lower Body - Score, Toileting - Score, Bladder Management - Score, Bowel Man agement - Score, Transfers: Bed, Chair, Wheelchair - Score, Transfers: Toilet - Score, Transfers: Yee wer - Score, Transfers: Tub - Score, Locomotion: Walk - Score, Locomotion: Wheelchair - Score, Compre hension - Score, Expression - Score, Social Interaction - Score, Problem Solving - Score, Memory - Sc ore were [electronically] signed by Jah ArmstrongNRichie on SunAug 15 2018 15:44:44 GMT-0500 (Centra l Daylight Time)
--- NOTE | 2018-08-15 19:02 | R.PN ---
ENCOUNTER DATE AND TIME: 08/15/2018 19:00 (CDT) NAME CRYSTAL BEAVER DATE OF : 1960 DATE OF ADMISSION: 08/12/2018 20:25 (CDT) small right thalamic intraparenchymal hematomaCHIEF COMPLAINT: Right thalamic hemorragic stroke SUBJECTIVE: Pt denied any Shortness of Breath. Pt denied any depression. Ambulated 1000' with independence without an assistive device. He did cooking activities today with modified independence. VITAL SIGNS Temperature: 97.8 F SBP/DBP: 156/89 Pulse: 79 Resp: 16 MEDICATION ALLERGIES: No Known Drug Allergies (NKDA) ENVIRONMENTAL ALLERGIES: - Substance Allergies None Known - Other Allergies None Known NURSING: - Shower allowing shower - Lab Results blood Sugar Check ACHS - Bladder care per protocol - Skin care per protocol PRECAUTIONS: - Weight Bearing Precaution WBAT left LE ACTIVITIES OOB only with supervision THERAPIES: - Occupational Therapy Evaluate and Treat. Cognitive Retraining. Visual Perceptual Training. - Speech Therapy Memory Strategies. Expressive Language Skills. Speech Intelligibility Training. Cognitive Training. R eceptive Language Skills. - Physical Therapy Evaluate and Treat. PHYSICAL EXAM - Gen Alert and awake Lying in bed No apparent distress Oriented to: person, time, and place - Skin No skin breakdown. No abnormalities - Eyes No abnormalities - ENMT No abnormalities - Neck No abnormalities - CVS RRR - Chest Clear - Abd Soft - GI Non distended Deferred - No abnormalities - Ext No significant edema - MSK Unremarkable - Neuro Incoordination, left sided numbness and dysmetria, unsteady gait - Psych No abnormalities ASSESSMENT: Pt. is a 57 yo Right-handed male.On 08/06/2018 Pt. presented to [facility] with sudden onset of left-side weakness.On 08/06/2018 he was admitted to [facility] with diagnosis small rig ht thalamic intraparenchymal hematoma.His impairment category is Stroke 01 - Left Body (Right Brain) (01.1).Pre-morbidly, Pt. was independent/mod-I in Communication, Social Cognition, Self-Care, Sphinc ter Control, Transfers Control, and Locomotion; and he had good Sphincter Control.Currently, he has d eficits of Communication, Social Cognition, Balance, Self-Care, Endurance, Safety Awareness, Transfer s Control, and Locomotion.Pt. is now referred to [facility] for acute in-patie nt rehabilitation in order to maximize patient's functional independence in activities of daily livin g, strength, ROM, and mobility.- Rehab Goal Patient has realistic goal of being discharged at assistance level 6-Eddie to reside at Home with Fam maurice/Relatives. MDM/PLAN: - Physical Therapy Gait dysfunction - to improve, our physical therapists will perform initial evaluation of pt's statu s upon admission and devise an individualized program for Gait Training, and Wheel Chair mobility Inability to transfer - to improve, our physical therapists will perform initial evaluation of pt's status upon admission and devise an individualized program for Bed mobility Need for home safety evaluation - to improve, our physical therapists will perform initial evaluatio n of pt's status upon admission and devise an individualized program for Home Evaluation Need in caregiver upon discharge - to improve, our physical therapists will perform initial evaluati on of pt's status upon admission and devise an individualized program for Caregiver Training Edema - to improve, our physical therapists will perform initial evaluation of pt's status upon admi ssion and devise an individualized program for Elevation Training, and Lymphedema Therapy New precaution - to improve, our physical therapists will perform initial evaluation of pt's status upon admission and devise an individualized program for Patient precaution education Poor balance - to improve, our physical therapists will perform initial evaluation of pt's status up on admission and devise an individualized program for Balance Training Poor endurance - to improve, our physical therapists will perform initial evaluation of pt's status upon admission and devise an individualized program for Endurance Training Weakness - to improve, our physical therapists will perform initial evaluation of pt's status upon a dmission and devise an individualized program for Aquatic Therapy, Neuromuscular Reeducation, and Str engthening Achieving independence - to improve, our physical therapists will perform initial evaluation of pt's status upon admission and devise an individualized program for Community Reintegration Activities - Occupational Therapy ADL deficits - to improve, our occupation therapists will perform initial evaluation of pt's status upon admission and devise an individualized program for Bathing, Bed mobility, Community Reintegratio n, Cooking, Dressing, Eating, Fine Motor Skills, Grooming, Homemaking, Kitchen Mobility, Laundry, Pat ient Education, Safety Awareness, Splinting - Positioning, Transfers(Toilet, Tub, Shower), and Wheel Chair Management Cognitive deficits - to improve, our occupation therapists will perform initial evaluation of pt's s tatus upon admission and devise an individualized program for Cognition - orientation Need for healthcare network consultant - to improve, our occupation therapists will perform initial evaluation of pt's status upon admission and devise an individualized program for Caregiver Training Weakness - to improve, our occupation therapists will perform initial evaluation of pt's status upon admission and devise an individualized program for Aquatic Therapy, Balance, Endurance, UE ROM, and UE strengthening - Diet Type Continue Cardiac - Diet - Liquid Texture Continue Regular - Tube Feed Continue N/A - Lab Results blood Sugar Check ACHS - Bladder care per protocol - Weight Bearing Precaution WBAT left LE - Skin care per protocol - Diet - Solid Texture Continue Regular - Shower allowing shower for Dementia, TBI, Stroke, or others FUNCTIONAL STATUS: UPDATED AT WEEKLY TEAM CONFERENCE - Bladder Same accident frequency: 7-Ind - No accidents in the past 7 days - Bowel Same accident frequency: 7-Ind - No accidents in the past 7 days - Walking Same score based on distance walked: 1(<=50ft) FUNCTIONAL STATUS: - Self-Care A. Eating sup B. Grooming Arely C. Bathing Arely D. Dressing - Upper Eddie E. Dressing - Lower Arely F. Toileting Arely - Sphincter Control G: Bladder control Ind H: Bowel control Ind - Transfers Control I. Bed/Chair/Wheelchair CGA J. Toilet CGA K. Tub/Shower CGA - Locomotion L. Walk/Wheelchair (B) Dep M. Stairs - Communication N. Comprehension (B) sup O. Expression (B) sup - Social Cognition P. Social Interaction sup Q. Problem Solving sup R. Memory sup - Endurance Fair - Balance Poor - Safety Awareness Poor CURRENT FUNC. DEFICITS: Communication, Social Cognition, Balance, Self-Care, Endurance, Safety Awareness, Transfers Control, and Locomotion SIGNATURE PANEL: (CDT)
[2018-08-15] MEDS: ATORVASTATIN 40 MG TAB PO SCH (21:09)
--- NOTE | 2018-08-16 01:31 | FAST ---
SHIFT START DATE/TIME: 08/15/2018 19:00 (CDT) SHIFT END DATE/TIME: 08/16/2018 07:00 (CDT) NAME CRYSTAL BEAVER DATE OF : 1960 DATE OF ADMISSION: 08/12/2018 20:25 (CDT) PHONE: AGE: 57 N# [id number] GENDER: Male ENCOUNTER PHYSICIAN: Dr. Edmundo Glasgow M.D. ADMISSION DIAGNOSIS: - Stroke 01 - Left Body (Right Brain) (01.1) small right thalamic intraparenchymal hematoma. EATING: Activity did not occur on this shift EATING - SCORE: 0-UNK GROOMING: Oral care Wash, rinse, and dry face Wash, rinse, and dry hands GROOMING - STEP 1: Does the patient require assistance when grooming? No. GROOMING - SCORE: 7-IND BATHING: Activity did not occur on this shift BATHING - SCORE: 0-UNK DRESSING - UPPER BODY: Patient is not dressing in public clothing ARTICLES SCORE Total number of steps: 0 DRESSING - UPPER BODY - SCORE: 0-UNK DRESSING - LOWER BODY: Patient is not dressing in public clothing ARTICLES SCORE Total number of steps: 0 DRESSING - LOWER BODY - SCORE: 0-UNK TOILETING: TOILETING - STEP 1: Does the patient require assistance with toileting? No. TOILETING - SCORE: 7-IND BLADDER MANAGEMENT: BLADDER MANAGEMENT - STEP 1: Does the patient control the bladder completely and intentionally without equipment or devices or med ications, and is always continent? Yes. BLADDER MANAGEMENT - SCORE: 7-IND BOWEL MANAGEMENT: BOWEL MANAGEMENT - STEP 1: Does the patient control bowels completely and intentionally without equipment devices or medications AND is always continent? Yes. BOWEL MANAGEMENT - SCORE: 7-IND TRANSFERS: BED, CHAIR, WHEELCHAIR: TRANSFERS: BED, CHAIR, WHEELCHAIR - STEP 1: Does the patient require assistance with bed, chair, or wheelchair transfers? No. TRANSFERS: BED, CHAIR, WHEELCHAIR - SCORE: 7-IND TRANSFERS: TOILET: TRANSFERS: TOILET - STEP 1: Does the patient require assistance with toilet transfers? No. TRANSFERS: TOILET - SCORE: 7-IND TRANSFERS: SHOWER: Activity did not occur on this shift TRANSFERS: SHOWER - SCORE: 0-UNK TRANSFERS: TUB: Activity did not occur on this shift TRANSFERS: TUB - SCORE: 0-UNK LOCOMOTION: WALK: Activity did not occur on this shift LOCOMOTION: WALK - SCORE: 0-UNK LOCOMOTION: WHEELCHAIR: Activity did not occur on this shift LOCOMOTION: WHEELCHAIR - SCORE: 0-UNK COMPREHENSION: COMPREHENSION: TYPE: Both COMPREHENSION - STEP 1: Does the patient require help to understand complex and abstract ideas (such as current events, finan luc, discharge planning, medical issues, relationships, etc)? No. COMPREHENSION - STEP 2: Does the patient need extra time, require an assistive device (such as glasses for visual comprehensi on or a hearing aid for auditory comprehension) or does s/he have mild difficulty understanding compl ex and abstract information? Yes. COMPREHENSION - SCORE: 6-NICOLAS EXPRESSION EXPRESSION: TYPE: Both EXPRESSION - STEP 1: Does the patient require help expressing complex and abstract ideas (such as current events, finances , discharge planning, medical issues, relationships, etc)? No. EXPRESSION - STEP 2: Does the patient need extra time, require an assistive device (such as augmentive communication syste m or a communication board), OR does s/he have mild difficulty expressing complex and abstract ideas (including mild dysarthria or mild word-find problems)? No. EXPRESSION - SCORE: 7-IND SOCIAL INTERACTION: SOCIAL INTERACTION - STEP 1: Does the patient require a helper to interact with others in social and therapeutic situations? No. SOCIAL INTERACTION - STEP 2: Does the patient need extra time in social situations, OR does s/he interact with staff, other patien ts, and family members ONLY in structured environments, OR does s/he require medication for social in teraction? Yes, patient requires medication for social interaction SOCIAL INTERACTION - SCORE: 6-NICOLAS PROBLEM SOLVING: PROBLEM SOLVING - STEP 1: Does the patient need help to solve complex problems such as managing a checking account or confronti ng interpersonal problems? No. PROBLEM SOLVING - STEP 2: Does the patient require extra time to make decisions or solve problems, OR does s/he have slight dif ficulty reading, initiating, or self-correcting in unfamiliar situations? No. PROBLEM SOLVING - SCORE: 7-IND MEMORY: MEMORY - STEP 1: Does the patient need help to remember frequently encountered people, daily routines, and executing r equests? No. MEMORY - STEP 2: Does the patient have slight difficulty recognizing frequently encountered people, daily routines, or executing requests without the need for repetition or using self-initiated or environmental cues to remember? No. MEMORY - SCORE: 7-IND SIGNATURE PANEL: The following modified sections: Eating - Score, Grooming - Score, Dressing - Upper Body - Score, Miles ssing - Lower Body - Score, Toileting - Score, Bladder Management - Score, Bowel Management - Score, Transfers: Bed, Chair, Wheelchair - Score, Transfers: Toilet - Score, Transfers: Shower - Score, Thompson sfers: Tub - Score, Locomotion: Walk - Score, Locomotion: Wheelchair - Score, Comprehension - Score, Expression - Score, Social Interaction - Score, Problem Solving - Score, Memory - Score were [electro nically] signed by Naifsa Alonso CNA on SunAug 16 2018 01:31:06 GMT-0500 (Central Daylight Time)
[2018-08-16] MEDS: INSULIN -REGULAR HUMAN 50 UNIT/0.5 ML ML SQ SCH ×2 (07:30→12:13)
[2018-08-16] MEDS: LEVEMIR SQ SCH (07:50)
[2018-08-16] MEDS: NOVOLOG SQ SCH ×2 (07:52→12:00)
[2018-08-16] MEDS: ASPIRIN EC 81 MG TAB PO SCH (08:17)
[2018-08-16] MEDS: DIGOXIN 0.125 MG TABLET PO SCH (08:17)
[2018-08-16] MEDS: CLOPIDOGREL 75 MG TABLET PO SCH (08:18)
[2018-08-16] MEDS: POTASSIUM CL SA 10 MEQ TAB PO SCH (08:18)
[2018-08-16] MEDS: SERTRALINE HCL 50 MG TAB PO SCH (08:18)
[2018-08-16] MEDS: ISOSORBIDE MONO SR 60 MG TAB PO SCH (08:18)
[2018-08-16] MEDS: CARVEDILOL 25 MG TAB PO SCH (08:19)
[2018-08-16] MEDS: AMLODIPINE 10 MG TAB PO SCH (08:19)
[2018-08-16] MEDS: BUMETANIDE 1 MG TABLET PO SCH (08:19)
--- NOTE | 2018-08-16 10:27 | P.RH.PN ---
Estimated Length of Stay: 7 Expected Discharge Date: 08/16/18 Discharge Disposition Plan: Home Family Support: Yes Card Dealer Goal: Mobility, Transfers, Self Care Vital Signs: Last Vital Signs Temp 97.6 F 08/15/18 20:00 Pulse 72 08/16/18 08:19 Resp 18 08/15/18 20:00 BP 145/87 H 08/16/18 08:19 Pulse Ox 98 08/15/18 20:00 Laboratory: Laboratory Last Values WBC 6.7 K/uL (4.3-10.9) 08/15/18 06:30 RBC 5.79 M/uL (4.33-5.43) H 08/15/18 06:30 Hgb 17.2 g/dL (13.6-17.9) 08/15/18 06:30 Hct 50.3 % (39.6-49.0) H 08/15/18 06:30 MCV 86.9 fL (80-100) 08/15/18 06:30 MCH 29.7 pg (27.0-35.0) 08/15/18 06:30 MCHC 34.2 g/dL (32.0-36.0) 08/15/18 06:30 RDW 13.8 % (12.1-15.2) 08/15/18 06:30 Plt Count 207 K/uL (152-406) 08/15/18 06:30 MPV 9.5 fL (7.6-11.3) 08/15/18 06:30 Neutrophils % 63.8 % (41.7-73.7) 08/15/18 06:30 Lymphocytes % 14.5 % (15.3-44.8) L 08/15/18 06:30 Monocytes % 16.6 % (3.3-12.3) H 08/15/18 06:30 Eosinophils % 4.0 % (0-4.4) 08/15/18 06:30 Basophils % 1.1 % (0-1.3) 08/15/18 06:30 Absolute Neutrophils 4.3 K/uL (1.8-8.0) 08/15/18 06:30 Segmented Neutrophils 65 % (40-80) 08/15/18 06:30 Band Neutrophils 1 % (0-1) 08/15/18 06:30 Absolute Lymphocytes 1.0 K/uL (0.7-4.9) 08/15/18 06:30 Lymphocytes 22 % (15-42) 08/15/18 06:30 Monocytes 8 % (0-10) 08/15/18 06:30 Absolute Monocytes 1.1 K/uL (0.1-1.3) 08/15/18 06:30 Eosinophils 3 % (0-3) 08/15/18 06:30 Absolute Eosinophils 0.3 K/uL (0-0.5) 08/15/18 06:30 Basophils 1 % (0-1) 08/15/18 06:30 Absolute Basophils 0.1 K/uL (0-0.5) 08/15/18 06:30 Morphology Comment Not seen (NOT SEEN) 08/15/18 06:30 Sodium 139 mmol/L (136-145) 08/15/18 06:30 Potassium 3.9 mmol/L (3.5-5.1) 08/15/18 06:30 Chloride 99 mmol/L (98-107) 08/15/18 06:30 Carbon Dioxide 33 mmol/L (21-32) H 08/15/18 06:30 BUN 32 mg/dL (7-18) H 08/15/18 06:30 Creatinine 1.70 mg/dL (0.55-1.3) H 08/15/18 06:30 Estimated GFR 42 mL/min (=/>90) L 08/15/18 06:30 Glucose 140 mg/dL (74-106) H 08/15/18 06:30 POC Glucose 244 mg/dl (65-120) H 08/15/18 21:01 Calcium 9.0 mg/dL (8.5-10.1) 08/15/18 06:30 Magnesium 2.2 mg/dL (1.8-2.4) 08/13/18 05:40 Albumin 3.7 g/dL (3.4-5.0) 08/15/18 06:30 Prealbumin 26.2 mg/dL (20-40) 08/15/18 06:30 Urine Color Yellow 08/12/18 22:40 Urine Appearance Clear 08/12/18 22:40 Urine pH 5.5 (5.0-7.0) 08/12/18 22:40 Ur Specific [place] 1.025 (1.005-1.030) 08/12/18 22:40 Urine Ketones Negative (NEG) 08/12/18 22:40 Urine Blood Negative (NEG) 08/12/18 22:40 Urine Nitrite Negative (NEG) 08/12/18 22:40 Urine Bilirubin Negative (NEG) 08/12/18 22:40 Urine Urobilinogen 1.0 mg/dL (0.2-1.0) 08/12/18 22:40 Ur Leukocyte Esterase Negative (NEG) 08/12/18 22:40 Urine RBC None seen /HPF (NONE SEEN) 08/12/18 22:40 Urine WBC <5 /HPF (<5) 08/12/18 22:40 Ur Squamous Epith Cells <5 /HPF (NONE SEEN) 08/12/18 22:40 Urine Bacteria <20 /HPF (NONE SEEN) 08/12/18 22:40 Urine Culture Reflexed Not needed 08/12/18 22:40 Urine Glucose 3+ (NEG) H 08/12/18 22:40 Urine Total Protein 1+ (NEG) H 08/12/18 22:40 Weight: 222 lb 2 oz Wound Present: No Closed Surgical Incision Present: No Negative Pressure Wound Therapy Present: No Physician Update: He has moderate right hip pain causing limping. His blood work shows elevated blood sugars. He will follow up with his PCP. He is modified independent with his physical and occupational therapy. He will be discharged today. Medication Issues: Aspirin 81mg Daily PO. Plavix 75mg Daily PO Functional Improvement: Patient has met all short-term and long-term goals, w/ the exception of a car transfer at this time. Patient is Ind. w/ all activities. 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 Please see the Rehabilitation Signature page for all necessary signatures.
--- NOTE | 2018-08-16 13:00 | FAST ---
ENCOUNTER DATE AND TIME: 08/16/2018 08:00 (CDT) NAME CRYSTAL BEAVER DATE OF : 1960 DATE OF ADMISSION: 08/12/2018 20:25 (CDT) PHONE: AGE: 57 SSN# [id number] GENDER: Male ENCOUNTER PHYSICIAN: Dr. Edmundo Glasgow M.D. ADMISSION DIAGNOSIS: - Stroke 01 - Left Body (Right Brain) (01.1) small right thalamic intraparenchymal hematoma. EATING: Activity did not occur on this shift EATING - SCORE: 0-UNK GROOMING: Activity did not occur on this shift GROOMING - SCORE: 0-UNK BATHING: Activity did not occur on this shift BATHING - SCORE: 0-UNK DRESSING - UPPER BODY: Activity did not occur on this shift Patient is not dressing in public clothing ARTICLES SCORE Total number of steps: 0 DRESSING - UPPER BODY - SCORE: 0-UNK DRESSING - LOWER BODY: Activity did not occur on this shift Patient is not dressing in public clothing ARTICLES SCORE Total number of steps: 0 DRESSING - LOWER BODY - SCORE: 0-UNK TOILETING: Activity did not occur on this shift TOILETING - SCORE: 0-UNK BLADDER MANAGEMENT: Activity did not occur on this shift BLADDER MANAGEMENT - SCORE: 7-IND BOWEL MANAGEMENT: Activity did not occur on this shift BOWEL MANAGEMENT - SCORE: 7-IND TRANSFERS: BED, CHAIR, WHEELCHAIR: TRANSFERS: BED, CHAIR, WHEELCHAIR - STEP 1: Does the patient require assistance with bed, chair, or wheelchair transfers? No. TRANSFERS: BED, CHAIR, WHEELCHAIR - SCORE: 7-IND TRANSFERS: TOILET: Activity did not occur on this shift TRANSFERS: TOILET - SCORE: 0-UNK TRANSFERS: SHOWER: Activity did not occur on this shift TRANSFERS: SHOWER - SCORE: 0-UNK TRANSFERS: TUB: Activity did not occur on this shift TRANSFERS: TUB - SCORE: 0-UNK LOCOMOTION: WALK: LOCOMOTION: WALK - STEP 1: Does the patient need help to walk 150 feet? No. LOCOMOTION: WALK - STEP 2: Does the patient need an assistive device (such as an orthosis, prosthesis, crutches, or walker) to g o 150 feet, OR does s/he take more than reasonable time, OR is there a concern for safety? No. LOCOMOTION: WALK - SCORE: 7-IND LOCOMOTION: WHEELCHAIR: Activity did not occur on this shift LOCOMOTION: WHEELCHAIR - SCORE: 0-UNK LOCOMOTION: STAIRS: LOCOMOTION: STAIRS - STEP 1: Does the patient need help to go up and down 12 to 14 stairs? No. LOCOMOTION: STAIRS - STEP 2: Does the patient require an assistive device - such as handrails or cane - to go up and down one flig ht of stairs, OR does s/he take more than reasonable time, OR is there a concern for safety? Yes, the patient requires an assistive device LOCOMOTION: STAIRS - SCORE: 6-NICOLAS COMPREHENSION: COMPREHENSION - SCORE: 0-UNK EXPRESSION EXPRESSION - SCORE: 0-UNK SOCIAL INTERACTION: SOCIAL INTERACTION - SCORE: 0-UNK PROBLEM SOLVING: PROBLEM SOLVING - SCORE: 0-UNK MEMORY: MEMORY - SCORE: 0-UNK SIGNATURE PANEL: The following modified sections: Transfers: Bed, Chair, Wheelchair - Score, Transfers: Toilet - Score , Locomotion: Walk - Score, Locomotion: Wheelchair - Score, Locomotion: Stairs - Score were [electron liya] signed by Terrence Valadez PT on SunAug 16 2018 12:59:15 T-0500 (Central Daylight Time)
== END 2018-08-16 14:40 | disposition home health service (06) | DRG 57 ==
LOC: 5TH 20:24
PROVIDERS: ADMIT Psychiatry & Neurology Neurology with Special Qualifications in Child Neurology; ATTEND Psychiatry & Neurology Neurology with Special Qualifications in Child Neurology
DX: I69.354 Hemiplegia and hemiparesis following cerebral infarction affecting left non-dominant side (principal); I13.0 Hypertensive heart and chronic kidney disease with heart failure and stage 1 through stage 4 chronic kidney disease, or unspecified chronic kidney disease; E11.40 Type 2 diabetes mellitus with diabetic neuropathy, unspecified; E11.22 Type 2 diabetes mellitus with diabetic chronic kidney disease; N18.9 Chronic kidney disease, unspecified; I25.10 Atherosclerotic heart disease of native coronary artery without angina pectoris
CPT/HCPCS: 36415; 80048; 81001; 82040; 82962; 83735; 84134; 85025; 87086; 87088

== ENCOUNTER 2021-09-21 07:15 | Day surgery (SDC) | payer OTHER ==
[2021-09-20 13:07] LABS: Basophils % 0.5 % (0-1.3); Hematocrit 42.2 % (39.6-49.0); Lymphocytes % 10.4 % (15.3-44.8); MPV 8.5 fL (7.6-11.3)
[2021-09-20 13:16] LABS: Potassium 4.6 mmol/L (3.5-5.1)
--- NOTE | 2021-09-20 13:40 | RAD REPORT ---
EXAM DESCRIPTION: RAD - Chest Pa And Lat (2 Views) - 09/20/2021 1:22 pm CLINICAL HISTORY: PRE-OP, debridement put COMPARISON: None TECHNIQUE: Frontal and lateral views of the chest were obtained. FINDINGS: The lungs are normal volume. No dense mass or consolidation. On this baseline study the pe rihilar markings and vasculature are mildly prominent with mild prominence of the bibasilar interstit ial pattern. Single lead defibrillator is in place. Trachea is midline. Heart size is upper normal. Pulmonary vasculature is still within range of normal. No pleural effusion or pneumothorax seen. No acute bony finding noted. No aortic abnormality. IMPRESSION: No peripheral mass or consolidation. No significant degree of failure or volume overload identifiable. Baseline study shows mild prominence of the perihilar vasculature in the lower lung field markings. A mild component of failure or volume overload cannot be excluded on this baseline study.
[2021-09-21] MEDS ORDERED: CEFAZOLIN/NS 1gm 1 GM/50 ML BAG ONE (07:35)
[2021-09-21] MEDS ORDERED: NA CHLORIDE 0.9% 1,000 ML ONE (07:35)
[2021-09-21] MEDS ORDERED: COLLAGENASE 30 GM OINTMENT TOP ONE (09:35)
[2021-09-21] MEDS ORDERED: HYDROCODONE/APAP 7.5/325 MG TAB ONE (11:00)
--- NOTE | 2021-09-21 11:22 | EKG ---
Test Date: 2021-09-20 Test Time: 13:06:26 Clinical Rehab Liaison: TRACY MEASUREMENT RESULTS: Intervals: Rate: 97 LA: 186 QRSD: 98 QT: 402 QTc: 510 [place]: P: 55 LA: 186 QRS: 78 T: 123 INTERPRETIVE STATEMENTS: Sinus rhythm with premature atrial complexes Nonspecific ST and T wave abnormality Prolonged QT Abnormal ECG No previous ECG available for comparison Electronically Signed On 09-21-21 11:20:20 PATIENT SAFETY TECH by Benjamin Carreno
[2021-09-21 11:45] VITALS: BP 113/82; TEMP 97.2; O2SAT 94
--- NOTE | 2021-09-21 16:03 | OP ---
Date of Procedure: 09/21/2021 Surgeon: Delroy Vazquez MD Preoperative Diagnosis: Nonhealing wound, left lower extremity x2. Postoperative Diagnosis: Nonhealing wound, left lower extremity x2. Procedure: Excisional debridement of left lower leg wounds x2, 12 x 6 cm to subcutaneous tissue. Estimated Blood Loss: Minimal. Specimen: Debridement tissue, mostly fibrin. Finding: As above. Anesthesia: General. Complications: None. Disposition: The patient tolerated the procedure in stable condition and taken to Recovery in good g eneral condition. Procedure In Detail: The patient was brought to the OR, placed in supine position. General anesthes ia begun. The patient was placed in the supine position. Prepped and draped in usual sterile fashio n, and then scissors and curettes were used to debride the necrotic fibrin in the posterior left ankl e and foot as well as the curette until good bleeding tissue was obtained which was controlled with c autery. There was some tendon that was necrosis as well and that was excised as well. Wound irrigat ed. Bleeding controlled with cautery. A 95% of the fibrin was debrided without difficulty and then wound irrigated, bleeding controlled with cautery again, and then collagenase dressing applied. Woun d size total was 12 x 6 cm and debridement took place down through the subcutaneous tissue. Subseque ntly collagenase dressing applied. Sterile dressing applied and then the patient awakened and taken to Recovery in good general condition. Discharge Note: The patient will go to Day Surgery and home when stable. Disposition: Home. Condition: Stable. Discharge Instructions: Resume home medications and diet. Activity as tolerated. Tylenol No.3 one tablet p.o. q.4 p.r.n. pain. Collagenase to wound daily. The patient follow up in the [facility] in 1 week. Call for appointment. /MODL Voice ID: [id number] Report ID: [id number]
== END 2021-09-21 11:30 | disposition home or self-care (01) ==
LOC: OR 07:15
PROVIDERS: ATTEND Surgery
PROC: 0JBR0ZZ Excision of Left Foot Subcutaneous Tissue and Fascia, Open Approach (ICD-10-PCS; principal; 2021-09-21 08:30)
DX: S91.002A Unspecified open wound, left ankle, initial encounter (principal); S91.302A Unspecified open wound, left foot, initial encounter; I96 Gangrene, not elsewhere classified; Z20.822 Contact with and (suspected) exposure to COVID-19
CPT/HCPCS: 93005; 85025; 80048; 36415; 82947 ×2; 88304; 71046; 11042; U0003; J3590; J0690; J7030; 88302

== ENCOUNTER 2022-01-04 12:02 | Emergency (ER) | payer OTHER ==
--- OUTSIDE RECORDS SUMMARY | 2022-01-04 12:07 | XMS REPORT | Continuity of Care Document ---
:[address] [facility] t Address [address] [place] [address] Care Team Providers Name Role Phone CTR, ADMIN MED Primary Care Physician Unavailable LAURA Attending Clinician Unavailable Doctor Unassigned, Name Attending Clinician Unavailable Laura MD Attending Clinician DEANDRE HUNTER Admitting Clinician Unavailable Payers Payer Name Policy Type Policy Number Effective Date Expiration Date Medardo MUR[place] [id number] 2019 [employer] 00:00:00 Problems Condition Condition Condition Status Onset Resolution Last Treating Co mments Source Name Details Category Date Date Treatment Clinician Date Hypertensi Hypertensi Disease Active U nivers ve ve 12-08 [place] emergency [place] [facility] [place] HFrEF HFrEF Disease Active Univers (heart (heart 12-07 ity of failure failure 00:00: [place] with with 00 Medical reduced reduced Branch ejection ejection fraction) fraction) Pulmonary Pulmonary Disease Active Uni vers edema edema 12-07 ity of 00:00: [place] 00 Medical Branch ACS (acute ACS (acute Disease Active 2019-11 U nivers coronary coronary 11-20 ity of syndrome) syndrome) [place] Ulcer of Ulcer of Disease Active Unive rs foot foot 07-13 ity of 00:00: [place] 00 Medical Branch 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 current current Added use of use of automatic insulin insulin ally from request for surgery [id number] Diabetic Diabetic Disease Active Overview: Un shea ulcer of ulcer of 07-13 Formattin ity of midfoot midfoot 00:00: g of this [place] associated associated 00 note Me dical with type with type might be Br anch 2 diabetes 2 diabetes different mellitus, mellitus, from the with with original. necrosis necrosis Added of bone, of bone, automatic unspecifie unspecifie ally from d d request laterality laterality for surgery [id number] NSTEMI NSTEMI Disease Active Univers (non-ST (non-ST 3-10 ity of elevated elevated 00:00: [place] myocardial myocardial 00 Me dical infarction infarction Br anch ) ) ICD ICD Disease Active 2018-11 Univers (implantab (implantab 0-03 it y of le le 00:00: [place] cardiovert cardiovert 00 Me dical er-defibri er-defibri Br anch llator), llator), single, in single, in situ situ Obesity Obesity Disease Active Univers (BMI (BMI 9- ity of 30-39.9) 30-39.9) 00:00: [place] 00 Medical Branch ELENA ELENA Disease Active Univers (obstructi (obstructi 08-07 it y of ve sleep ve sleep 00:00: [place] apnea) apnea) 00 Medical Branch Type 2 Type 2 Disease Active Univers myocardial myocardial 9- it [place] of infarction infarction [place]:00[place] ICH ICH Disease Active Univers (intracere (intracere 9- it y of bral bral 00:00: [place] hemorrhage hemorrhage 00 Me dical ) ) Branch Troponin Troponin Disease Active Unive rs level level 9-26 ity of elevated elevated 00:00: [place] 00 Medical Branch Acute on Acute on Disease Active Unive rs chronic chronic 9-25 ity of combined combined 00:00: [place] systolic systolic 00 Medica l and and Branch diastolic diastolic congestive congestive heart heart failure failure Chest pain Chest pain Disease Active U nivers 5-03 ity of 00:00: [place] 00 Medical Branch 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 ICD10 Diagnosis Term [employer] Utility DM DM Disease Active Univers (diabetes (diabetes 03-13 ity of mellitus) mellitus) 00:[place] CAD CAD Disease Active Univers (coronary (coronary 03-13 ity of artery artery 00:00: [place] disease) disease) 00 Medica l Branch Psoriasis Psoriasis Disease Active Uni vers 03-13 ity of 00:00: [place] 00 Medical Branch Current Current Disease Active Univers smoker smoker 03-13 ity of 00:00: [place] [facility] Intracereb Intracereb Disease Active U nivers ral bleed ral bleed 03-12 ity of 00:00: [place] 00 Medical Branch Allergies, Adverse Reactions, Alerts Allergy Allergy Status Severity Reaction(s) Onset Inactive Treating Comm ents Source Name Type Date Date Clinician PENICILL Drug Active Hives Univers INS Class 3-08 ity of 00:00: [place] 00 Medical Branch Penicill Propensi Active Hives Univer s ins ty to 3-08 ity of adverse 00:00: [place] reaction Medical s Branch PENICILL DRUG Active Unknown-Cmnt Un shea IN G INGREDI 03-12 ity of 00:00: [place] [facility] Penicill Propensi Active Unknown - Uni vers in G ty to See comments 03-12 ity of adverse 00:00: [place] reaction 00 Medical s Branch Social History Social Habit Start Date Stop Date Quantity Comments Source Exposure to Not sure University of SARS-CoV-2 (event) [facility] [place] [facility] Alcohol intake 2021-11-14 2021-11-14 Current University of 00:00:00 00:00:00 non-drinker of [facility] alcohol Branch (finding) Tobacco Comment 2020-04-12 2020-04-12 10 cigs per day Univ ersity of 00:00:00 00:00:00 [facility] [place] [facility] Tobacco use and 2020-04-12 2020-04-12 Never used Universit y of exposure 00:00:00 00:00:00 [facility] [place] [facility] Cigarette 2020-04-12 2020-04-12 University of pack-years 00:00:00 00:00:00 [facility] [place] [facility] Cigarettes smoked 2020-04-12 2020-04-12 Univers ity of current (pack per 00:00:00 00:00:00 ) - Reported Branch History of tobacco 2018-07-13 Cigarette Smoker University of use 00:00:00 [facility] [place] [facility] Sex Ass[birth year] At [birth year] Universit y of 00:00:00 00:00:00 [facility] [place] [facility] Smoking Status Start Date Stop Date Source Current every day smoker 2020-04-12 00:00:00 Uni versity [facility] [place] [facility] Medications Ordered Filled Start Stop Current Ordering Indication Dosage Frequency Signature Comments Components Source Medication Medication Date Date Medication? Clinician (SIG) Name Name carvediloL 0 Yes 25mg Take 25 mg U nivers 25 mg 1-03 by mouth 2 ity of tablet 09:11: (two) [address] daily with Branch meals. spironolact 2021-0 Yes 25mg Take 25 mg Univers one 25 mg 1-03 by mouth ity of tablet 09:11: daily. [address] sacubitriL- 2021-0 Yes 1{tbl} Take 1 Un shea valsartan 1-03 tablet by ity o f 24-26 mg 09:11: mouth 2 [place] tablet 14 (two) [facility] daily. clopidogreL 2021-0 Yes 75mg Take 75 mg Univers 75 mg 1-03 by mouth ity of tablet 09:11: daily. [address] isosorbide 2021-0 Yes 60mg Take 60 mg U nivers mononitrate 1-03 by mouth. ity of 60 mg 24 hr 09:11: [address] carvediloL 2021-0 Yes 25mg Take 25 mg U nivers 25 mg 1-03 by mouth 2 ity of tablet 09:11: (two) [address] daily with Branch meals. spironolact 2-0 Yes 25mg Take 25 mg Univers one 25 mg 1-03 by mouth ity of tablet 09:11: daily. [address] sacubitriL- 2021-0 Yes 1{tbl} Take 1 Un shea valsartan 1-03 tablet by ity o f 24-26 mg 09:11: mouth 2 [place] tablet 14 (two) [facility] times Branch daily. clopidogreL Yes 75mg Take 75 mg Univers 75 mg 1-03 by mouth ity of tablet 09:11: daily. [place] 14 Medical Branch isosorbide Yes 60mg Take 60 mg U nivers mononitrate 1-03 by mouth. ity of 60 mg 24 hr 09:11: [place] tablet 14 Medical Branch digoxin 125 2020-11 Yes [id number] 125ug Take 1 Univers mcg (0.125 0-27 tablet by ity of mg) tablet 00:00: mouth [place] 00 daily. Medical Branch digoxin 125 2020-11 Yes [id number] 125ug Take 1 Univers mcg (0.125 0-27 tablet by ity of mg) tablet 00:00: mouth [place] 00 daily. Medical Branch furosemide Yes [id number] 80mg Take 4 Univers 20 mg 4-16 tablets by ity of tablet 00:00: mouth [place] 00 every Medical morning Branch and evening. furosemide Yes [id number] 80mg Take 4 Univers 20 mg 4-16 tablets by ity of tablet 00:00: mouth [place] 00 every Medical morning Branch and evening. atorvastati Yes [id number] 80mg Take 1 Univers n 80 mg 2-24 tablet by ity of tablet 00:00: mouth [place] 00 daily. Medical Branch atorvastati Yes [id number] 80mg Take 1 Univers n 80 mg 2-24 tablet by ity of tablet 00:00: mouth [place] 00 daily. Medical Branch insulin Yes [id number] 30U inject 30 Univers aspart 1-29 Units ity of U-100 00:00: under the [place] (NOVOLOG 00 skin 3 Medical FLEXPEN (three) Branch U-100 times INSULIN) daily 100 unit/mL before (3 mL) meals. injection insulin Yes [id number] 60U inject 60 Univers glargine 1-29 Units ity of (LANTUS 00:00: under the [place] U-100 00 skin 2 Medical INSULIN) (two) Branch 100 unit/mL times injection daily. insulin Yes [id number] 30U inject 30 Univers aspart 1-29 Units ity of U-100 00:00: under the [place] (NOVOLOG 00 skin 3 Medical FLEXPEN (three) Branch U-100 times INSULIN) daily 100 unit/mL before (3 mL) meals. injection insulin Yes [id number] 60U inject 60 Univers glargine 1-29 Units ity of (LANTUS 00:00: under the [place] U-100 00 skin 2 Medical INSULIN) (two) Branch 100 unit/mL times injection daily. flash 2019-11 Yes [id number] 1{appli 1 Unive rs glucose 1-10 cator} Applicator ity of sensor 00:00: 4 (four) [place] (FREESTYLE 00 times Medical JOLLY 14 daily. DAY SENSOR) Check Kit glucose QID before meals as directed flash 2019-11 Yes [id number] 1{appli 1 Unive rs glucose 1-10 cator} Applicator ity of sensor 00:00: 4 (four) [place] (FREESTYLE 00 times Medical JOLLY 14 daily. SENSOR) Check Kit glucose QID before meals as directed sodium 2020-0 Yes [id number] Use to [facility] ers hypochlorit 7-27 cleanse ity o f e 0.25% 00:00: wound [place] (DAKIN'S 00 daily Medical SOLUTION) Branch solution sodium 2020-0 Yes [id number] Use to [facility] ers hypochlorit 7-27 cleanse ity o f e 0.25% 00:00: wound [place] (DAKIN'S 00 daily Medical SOLUTION) Branch solution collagenase 2020-0 Yes [id number] Apply to Univers 250 7-14 affected ity of unit/gram 00:00: area(s) [place] ointment 00 daily. Medical Branch collagenase 2020-0 Yes [id number] Apply to Univers 250 7-14 affected ity of unit/gram 00:00: area(s) [place] ointment 00 daily. Medical Branch nitroglycer 2020-[id number] 1 Univers in 0.4 mg 3-13 tablet ity of sublingual 00:00: [place] the [place] tablet 00 tongue Medical every 5 Branch (five) minutes as needed for Chest pain. nitroglycer 2020-[id number] 1 Univers in 0.4 mg 3-13 tablet ity of sublingual 00:00: [place] the [place] tablet 00 tongue Medical every 5 Branch (five) minutes as needed for Chest pain. SERTraline 2018-11 Yes [id number] 50mg Take 1 Univers 50 mg 0-05 tablet by ity of tablet 00:00: mouth [place] 00 daily. Medical Branch SERTraline 2018-11 Yes [id number] 50mg Take 1 Univers 50 mg 0-05 tablet by ity of tablet 00:00: mouth [place] 00 daily. [facility] Branch Immunizations Ordered Filled Immunization Date Status Comments Rose Mary e Immunization Name Name TD 2018-10-16 Completed [facility] 00:00:00 [facility] [place] [facility] TD 2018-10-16 Completed [facility] 00:00:00 [facility] [place] [facility] Vital Signs Vital Name Observation Time Observation Value Comments Source Systolic blood 2021-11-14 120 mm[Hg] [facility] pressure 15:24:00 [facility] [place] [facility] Diastolic blood 2021-11-14 86 mm[Hg] [facility] pressure 15:24:00 [facility] [place] [facility] Heart rate 2021-11-14 74 /min [facility] 15:24:00 [facility] [place] [facility] Oxygen saturation 2021-11-14 88 /min when 1st stood [facility] ty of in Arterial blood 15:24:00 up, then [facility] by Pulse oximetry climmed up to [place] 98% Respiratory rate 2021-11-14 22 /min [facility] 15:12:00 [facility] [place] [facility] Body height 2021-11-14 170.2 cm [facility] 15:12:00 [facility] [place] [facility] Body weight 2021-11-14 100.699 kg [facility] 15:12:00 [facility] [place] [facility] BMI 2021-11-14 34.77 kg/m2 [facility] 15:12:00 [facility] [place] [facility] Procedures Procedure Date / Time Performed Performing Clinician Rose Mary e HOME HEALTH - OTHER 2021-11-17 06:01:00 Doctor Unassigned, No Un iversity of [facility] Encounters Start End Encounter Admission Attending Care Care Encounter Source Date/Time Date/Time Type Type Clinicians Facility Department ID 2022-01-05 2022-01-05 Outpatient R LAURA [facility] [id number] Univers 14:40:00 14:40:00 JAG [id number] ritu o f [facility] [place] [facility] 2021-12-19 2021-12-19 Outpatient Javan SANCHEZ [facility] [id number] Univers 13:40:00 13:40:00 JAG chaney o f [facility] [place] [facility] 2021-11-21 2021-11-21 Outpatient R [facility] [id number] Univers 00:00:00 00:00:00 ity of [facility] [place] [facility] 2021-11-17 2021-11-17 Orders Doctor OSKAR [id number] Univers 00:00:00 00:00:00 Only Unassigned, BEAU [id number] ity of [place] [facility] [id number] [place] [phone] [place] [id number] Branch 2021-11-14 2021-11-14 Office Laura [facility] [id number] Univers 08:40:00 09:42:57 Visit Jag MARMOLEJO [id number] ity of [place] [id number] [place] [phone] [place] [id number] [facility] 2021-11-14 2021-11-14 Outpatient R LAURA [facility] [id number] Univers 08:40:00 09:42:57 JAG chaney o f [facility] [place] [facility] Results This patient has no known results.
--- NOTE | 2022-01-04 12:24 | ER ---
Nurse's Notes [facility] Name: Ector Trivedi Jr Age: 61 yrs Sex: Male : 1960 Arrival Date: 01/04/2022 Time: 12:05 Bed 24 Private MD: Diagnosis: Syncope Near;Unspecified injury of head, initial encounter Presentation: 01/04 12:15 Chief complaint: Patient states: had a syncopal episode while at Dr. Angulo office, hit iw head on a piece of furniture, no LOC, also had a fall about a month ago where he fell down 16 stairs, was never checked out for it, states he has had multiple syncopal episodes since then. Coronavirus screen: At this time, the client does not indicate any symptoms associated with coronavirus-19. Ebola Screen: Patient negative for fever greater than or equal to 101.5 degrees Fahrenheit, and additional compatible Ebola Virus Disease symptoms Patient denies exposure to infectious person. Patient denies travel to an Ebola-affected area in the 21 days before illness onset. No symptoms or risks identified at this time. 12:15 Method Of Arrival: EMS: [facility] iw 12:15 Acuity: CHRIS 3 iw 12:22 Initial Sepsis Screen: Does the patient meet any 2 criteria? No. Patient's initial lr4 sepsis screen is negative. Does the patient have a suspected source of infection? No. Patient's initial sepsis screen is negative. Risk Assessment: Do you want to hurt yourself or someone else? Patient reports no desire to harm self or others. Note pt bib for fall at his pcp office, upon history and assessment of pt, pt refused to be seen, he did not want to be put on the monitor. Pt is aaox4, resp even an unlabored and is refusing medical treatment. - Family history:: not pertinent. Assessment: 12:20 General: Appears in no apparent distress. comfortable, Behavior is calm, cooperative. lr4 Pain: Denies pain. Neuro: No deficits noted. Level of Consciousness is Oriented to person, place, time, situation, Reports. Cardiovascular: No deficits noted. Rhythm is sinus bradycardia ems reported sinus iván. Pt refused to be connected to monitor as he did not want to be seen. ED Course: 12:05 Patient arrived in ED. iw 12:09 Crow Guzman MD is Attending Physician. magalys 12:17 Triage completed. iw 12:20 Bailey Conley RN is Primary Nurse. lr4 Administered Medications: No medications were administered Outcome: 12:51 Patient left the ED. lr4 Signatures: Hodan Butler RN RN Crow Guzman MD MD nd2 Bailey Conley RN RN lr4
--- NOTE | 2022-01-04 12:24 | EDPHYS ---
Physician Documentation [facility] Name: Ector Trivedi Jr Age: 61 yrs Sex: Male : 1960 Arrival Date: 01/04/2022 Time: 12:05 Bed 24 Private MD: ED Physician Crow Guzman HPI: 01/04 12:21 This 61 yrs old Male presents to ER via EMS with complaints of Syncope. ma2 12:21 Associated signs and symptoms: Pertinent negatives: ataxia, chest pain, confusion. The ma2 patient has not experienced similar symptoms in the past, but family has similar symptoms. - Family history:: not pertinent. ROS: 12:21 Constitutional: Negative for fever, chills, and weight loss. ma2 12:21 All other systems are negative. Exam: 12:21 Abdomen/GI: Exam negative for ma2 12:21 Constitutional: This is a well developed, well nourished patient who is awake, alert, and in no acute distress. Eyes: Pupils equal round and reactive to light, extra-ocular motions intact. Lids and lashes normal. Conjunctiva and sclera are non-icteric and not injected. Cornea within normal limits. Periorbital areas with no swelling, redness, or edema. Cardiovascular: Regular rate and rhythm with a normal S1 and S2. No gallops, murmurs, or rubs. Normal PMI, no JVD. No pulse deficits. Respiratory: Lungs have equal breath sounds bilaterally, clear to auscultation and percussion. No rales, rhonchi or wheezes noted. No increased work of breathing, no retractions or nasal flaring. Abdomen/GI: Soft, non-tender, with normal bowel sounds. No distension or tympany. No guarding or rebound. No evidence of tenderness throughout. MDM: 12:09 Patient medically screened. ma2 12:21 Differential Diagnosis: cardiac arrhythmia, drug effect, GI bleed, pseudo seizure, ma2 seizure, sepsis, vasovagal episode. Data reviewed: vital signs, nurses notes. ED course: Patient would like to go AMA I discussed risk of leaving AMA they may include subarachnoid hemorrhage, patient understands risk of leaving AMA. Administered Medications: No medications were administered Disposition Summary: 01/04/22 12:23 Left Against Medical Advice Location: Home ma2 Problem: new ma2 Symptoms: are unchanged ma2 Condition: Stable ma2 Diagnosis - Syncope Near ma2 - Unspecified injury of head, initial encounter ma2 Followup: ma2 - With: Private Physician - When: Tomorrow - Reason: Continuance of care Discharge Instructions: - Discharge Summary Sheet ma2 - Syncope ma2 Signatures: Crow Guzman MD MD de2
== END 2022-01-04 12:51 | disposition left against medical advice (07) ==
LOC: ER 12:02
DX: R55 Syncope and collapse (principal); S09.90XA Unspecified injury of head, initial encounter
CPT/HCPCS: 99284

== ENCOUNTER 2022-01-04 13:25 | Emergency (ER) | payer OTHER ==
--- OUTSIDE RECORDS SUMMARY | 2022-01-04 13:29 | XMS REPORT | Continuity of Care Document ---
:[address] [facility] t Address [address] [place] [address] Care Team Providers Name Role Phone CTR, ADMIN MED Primary Care Physician Unavailable LAURA Attending Clinician Unavailable Doctor Unassigned, Name Attending Clinician Unavailable Laura MD Attending Clinician DEANDRE HUNTER Admitting Clinician Unavailable Payers Payer Name Policy Type Policy Number Effective Date Expiration Date Medardo [place] [id number] 2019 [employer]OYEE[employer] 00:00:00 Problems Condition Condition Condition [...] insulin insulin ally from request for surgery [id number] Diabetic Diabetic Disease Active Overview: Un shea [...] d d request laterality laterality for surgery [id number] NSTEMI NSTEMI Disease Active Univers (non-ST (non-ST [...] different from the original. ICD10 Diagnosis Term Surface Lay Out Technician Utility DM DM Disease Active Univers (diabetes [...] to Not sure University of SARS-CoV-2 (event) [facility] Alcohol intake 2021-11-14 2021-11-14 Current University of 00:00:00 00:00:00 non-drinker of [facility] alcohol Branch (finding) Tobacco Comment 2020-04-12 2020-04-12 10 cigs per day Univ ersity of 00:00:00 00:00:00 [facility] Tobacco use and 2020-04-12 2020-04-12 Never used Universit y of exposure 00:00:00 00:00:00 [facility] Cigarette 2020-04-12 2020-04-12 University of pack-years 00:00:00 00:00:00 [facility] Cigarettes smoked 2020-04-12 2020-04-12 Univers ity of current (pack per 00:00:00 00:00:00 ) - Reported Branch History of tobacco 2018-07-13 Cigarette Smoker University of use 00:00:00 [facility] Sex Assigned At [birth year] Universit y of 00:00:00 00:00:00 [facility] Smoking Status Start Date Stop Date Source Current every day smoker 2020-04-12 00:00:00 Uni versity [facility] Medications Ordered Filled Start Stop Current Ordering Indication Dosage Frequency Signature Comments Components Source Medication Medication Date Date Medication? Clinician (SIG) Name Name carvediloL 0 Yes 25mg Take 25 mg U nivers 25 mg 1-03 by mouth 2 ity of tablet 09:11: (two) [address] daily with Branch meals. spironolact 2021-0 Yes 25mg Take 25 mg Univers one 25 mg 1-03 by mouth ity of tablet 09:11: daily. [address] sacubitriL- 2021-0 Yes 1{tbl} Take 1 Un shea valsartan 1-03 tablet by ity o f 24-26 mg 09:11: mouth 2 [place] tablet 14 (two) [facility] daily. clopidogreL 2021-0 Yes 75mg Take 75 mg Univers 75 mg 1-03 by mouth ity of tablet 09:11: daily. [address] isosorbide 2021-0 Yes 60mg Take 60 mg U nivers mononitrate 1-03 by mouth. ity of 60 mg 24 hr 09:11: [address] carvediloL 2021-0 Yes 25mg Take 25 mg U nivers 25 mg 1-03 by mouth 2 ity of tablet 09:11: (two) [address] daily with Branch meals. spironolact 2-0 Yes 25mg Take 25 mg Univers one 25 mg 1-03 by mouth ity of tablet 09:11: daily. [address] sacubitriL- 2021-0 Yes 1{tbl} Take 1 Un shea valsartan 1-03 tablet by ity o f 24-26 mg 09:11: mouth 2 [place] tablet 14 (two) [facility] times Branch daily. clopidogreL Yes 75mg Take 75 mg Univers 75 mg 1-03 by mouth ity of tablet 09:11: daily. [place] 14 Medical Branch isosorbide Yes 60mg Take 60 mg U nivers mononitrate 1-03 by mouth. ity of 60 mg 24 hr 09:11: [place] tablet 14 Medical Branch digoxin 125 2020-11 Yes [id number] 125ug Take 1 Univers mcg (0.125 0-27 tablet by ity of mg) tablet 00:00: mouth [place] 00 daily. Medical Branch digoxin 125 2020-11 Yes [id number] 125ug Take 1 Univers mcg (0.125 0-27 tablet by ity of mg) tablet 00:00: mouth [place] 00 daily. Medical Branch furosemide Yes [id number] 80mg Take 4 Univers 20 mg 4-16 tablets by ity of tablet 00:00: mouth [place] 00 every Medical morning Branch and evening. furosemide Yes [id number] 80mg Take 4 Univers 20 mg 4-16 tablets by ity of tablet 00:00: mouth [place] 00 every Medical morning Branch and evening. atorvastati Yes [id number] 80mg Take 1 Univers n 80 mg 2-24 tablet by ity of tablet 00:00: mouth [place] 00 daily. Medical Branch atorvastati Yes [id number] 80mg Take 1 Univers n 80 mg 2-24 tablet by ity of tablet 00:00: mouth [place] 00 daily. Medical Branch insulin Yes [id number] 30U inject 30 Univers aspart 1-29 Units ity of U-100 00:00: under the [place] (NOVOLOG 00 skin 3 Medical FLEXPEN (three) Branch U-100 times INSULIN) daily 100 unit/mL before (3 mL) meals. injection insulin Yes [id number] 60U inject 60 Univers glargine 1-29 Units ity of (LANTUS 00:00: under the [place] U-100 00 skin 2 Medical INSULIN) (two) Branch 100 unit/mL times injection daily. insulin Yes [id number] 30U inject 30 Univers aspart 1-29 Units ity of U-100 00:00: under the [place] (NOVOLOG 00 skin 3 Medical FLEXPEN (three) Branch U-100 times INSULIN) daily 100 unit/mL before (3 mL) meals. injection insulin Yes [id number] 60U inject 60 Univers glargine 1-29 Units ity of (LANTUS 00:00: under the [place] U-100 00 skin 2 Medical INSULIN) (two) Branch 100 unit/mL times injection daily. flash 2019-11 Yes [id number] 1{appli 1 Unive rs glucose 1-10 cator} Applicator ity of sensor 00:00: 4 (four) [place] (FREESTYLE 00 times Medical JOLLY 14 daily. DAY SENSOR) Check Kit glucose QID before meals as directed flash 2019-11 Yes [id number] 1{appli 1 Unive rs glucose 1-10 cator} Applicator ity of sensor 00:00: 4 (four) [place] (FREESTYLE 00 times Medical JOLLY 14 daily. SENSOR) Check Kit glucose QID before meals as directed sodium 2020-0 Yes [id number] Use to [facility] ers hypochlorit 7-27 cleanse ity o f e 0.25% 00:00: wound [place] (DAKIN'S 00 daily Medical SOLUTION) Branch solution sodium 2020-0 Yes [id number] Use to [facility] ers hypochlorit 7-27 cleanse ity o f e 0.25% 00:00: wound [place] (DAKIN'S 00 daily Medical SOLUTION) Branch solution collagenase 2020-0 Yes [id number] Apply to Univers 250 7-14 affected ity of unit/gram 00:00: area(s) [place] ointment 00 daily. Medical Branch collagenase 2020-0 Yes [id number] Apply to Univers 250 7-14 affected ity of unit/gram 00:00: area(s) [place] ointment 00 daily. Medical Branch nitroglycer 2020-[id number] 1 Univers in 0.4 mg 3-13 tablet ity of sublingual 00:00: under the [place] tablet 00 tongue Medical every 5 Branch (five) minutes as needed for Chest pain. nitroglycer 2020-[id number] 1 Univers in 0.4 mg 3-13 tablet ity of sublingual 00:00: under the [place] tablet 00 tongue Medical every 5 Branch (five) minutes as needed for Chest pain. SERTraline 2018-11 Yes [id number] 50mg Take 1 Univers 50 mg 0-05 tablet by ity of tablet 00:00: mouth [place] 00 daily. Medical Branch SERTraline 2018-11 Yes [id number] 50mg Take 1 Univers 50 mg 0-05 tablet by ity of tablet 00:00: mouth [place] 00 daily. [facility] Branch Immunizations Ordered Filled Immunization Date Status Comments Rose Mary e Immunization Name Name TD 2018-10-16 Completed [facility] 00:00:00 [facility] TD 2018-10-16 Completed [facility] 00:00:00 [facility] Vital Signs Vital Name Observation Time Observation Value Comments Source Systolic blood 2021-11-14 120 mm[Hg] [facility] pressure 15:24:00 [facility] Diastolic blood 2021-11-14 86 mm[Hg] [facility] pressure 15:24:00 [facility] Heart rate 2021-11-14 74 /min [facility] 15:24:00 [facility] Oxygen saturation 2021-11-14 88 /min when 1st stood [facility] ty of in Arterial blood 15:24:00 up, then [facility] by Pulse oximetry climmed up to [place] 98% Respiratory rate 2021-11-14 22 /min [facility] 15:12:00 [facility] Body height 2021-11-14 170.2 cm [facility] 15:12:00 [facility] Body weight 2021-11-14 100.699 kg [facility] 15:12:00 [facility] BMI 2021-11-14 34.77 kg/m2 [facility] 15:12:00 [facility] Procedures Procedure Date / Time Performed Performing Clinician Rose Mary e HOME HEALTH - OTHER 2021-11-17 06:01:00 Doctor Unassigned, No Un iversity of [facility] Encounters Start End Encounter Admission Attending Care Care Encounter Source Date/Time Date/Time Type Type Clinicians Facility Department ID 2022-01-05 2022-01-05 Outpatient R LAURA [facility] [id number] Univers 14:40:00 14:40:00 JAG [id number] ritu o f [facility] 2021-12-19 2021-12-19 Outpatient Javan SANCHEZ [facility] [id number] Univers 13:40:00 13:40:00 JAG chaney o f [facility] 2021-11-21 2021-11-21 Outpatient R [facility] [id number] Univers 00:00:00 00:00:00 ity of [facility] 2021-11-17 2021-11-17 Orders Doctor OSKAR [id number] Univers 00:00:00 00:00:00 Only Unassigned, BEAU [id number] ity of [place] [facility] [id number] [place] as [phone] [place] [id number] Branch 2021-11-14 2021-11-14 Office Laura [facility] [id number] Univers 08:40:00 09:42:57 Visit Jag MARMOLEJO [id number] ity of [place] [id number] [place] [phone] [place] [id number] [facility] 2021-11-14 2021-11-14 Outpatient R LAURA [facility] [id number] Univers 08:40:00 09:42:57 JAG chaney o f [facility] Results This patient has no known results.
--- NOTE | 2022-01-04 14:21 | RAD REPORT ---
EXAM DESCRIPTION: CT - Head Brain Wo Cont - 01/04/2022 2:12 pm CLINICAL HISTORY: CONFUSED Headache, drowsiness COMPARISON: No comparisons TECHNIQUE: All CT scans are performed using dose optimization technique as appropriate and may inclu de automated exposure control or mA/KV adjustment according to patient size. FINDINGS: No intracranial hemorrhage, hydrocephalus or extra-axial fluid collection.Mild generalized brain atrophy is present with moderate periventricular and deep white matter chronic microvascular i schemic changes.No areas of brain edema or evidence of midline shift. The paranasal sinuses and mastoids are clear. The calvarium is intact. IMPRESSION: No acute intracranial abnormality.
[2022-01-04 14:48] LABS: Urine Blood Trace-lysed (Negative); Urine Glucose 2+ (Negative); Urine Protein 1+ (Negative)
[2022-01-04 15:01] LABS: Absolute Lymphocytes (CBC) 0.9 K/uL (0.7-4.9)
[2022-01-04 15:09] LABS: Hematocrit 48.5 % (39.6-49.0); Lymphocytes % 10.3 % (15.3-44.8); MPV 9.1 fL (7.6-11.3); RBC Red Blood Cell Count 5.61 M/uL (4.33-5.43)
[2022-01-04 15:16] LABS: Protime INR 0.98
[2022-01-04 15:30] LABS: Albumin 3.2 g/dL (3.4-5.0); Bilirubin Direct 0.2 mg/dL (0-0.2); Bilirubin Total 0.8 mg/dL (0.2-1.0); CKMB Creatine Kinase MB 4.2 ng/mL (1.0-3.6); Magnesium 2.3 mg/dL (1.8-2.4); Potassium 5.1 mmol/L (3.5-5.1); Protein, Total 7.7 g/dL (6.4-8.2)
--- NOTE | 2022-01-04 16:03 | ER ---
Nurse's Notes [facility] Name: Ector Trivedi Jr Age: 61 yrs Sex: Male : 1960 Arrival Date: 01/04/2022 Time: 13:26 Bed 24 Private MD: Diagnosis: Unspecified fall, sequela-Syncope positive LOC Presentation: 01/04 13:26 Chief complaint: Patient states: pt initially was sent to ER for syncopal episode at Dr. Angulo officer but left AMA. PT now is willing to get treatment. Coronavirus screen: At this time, the client does not indicate any symptoms associated with coronavirus-19. Ebola Screen: Patient negative for fever greater than or equal to 101.5 degrees Fahrenheit, and additional compatible Ebola Virus Disease symptoms Patient denies exposure to infectious person. Patient denies travel to an Ebola-affected area in the 21 days before illness onset. No symptoms or risks identified at this time. Risk Assessment: Do you want to hurt yourself or someone else? Patient reports no desire to harm self or others. Onset of symptoms was January 04, 2022. 13:26 Method Of Arrival: Ambulatory 13:26 Acuity: CHRIS 3 iw 15:28 Initial Sepsis Screen: Does the patient meet any 2 criteria? No. Patient's initial lr4 sepsis screen is negative. Does the patient have a suspected source of infection? No. Patient's initial sepsis screen is negative. Triage Assessment: 15:26 General: Appears in no apparent distress. comfortable, Behavior is cooperative, lr4 agitated, anxious. Neuro: No deficits noted. Level of Consciousness is awake, alert, obeys commands, confused, Oriented to person, place, time, situation, Appropriate for age Apple Peeler Operator are equal bilaterally Moves all extremities. Gait is slow from previous stroke. Reports some weakness on R side from previous stroke but no new deficits. Denies dizziness, difficulty swallowing, paresthesias numbness. Cardiovascular: No deficits noted. Respiratory: No deficits noted. GI: No deficits noted. Historical: - Allergies: 15:34 PENICILLINS; lr4 - Home Meds: 15:34 Unable to obtain [Active]; lr4 - PMHx: 15:34 Cerebrovascular accident; Myocardial infarction; Cerebrovascular accident; lr4 Cerebrovascular accident; Cerebrovascular accident; Myocardial infarction; Myocardial infarction; Hypertensive disorder; Diabetes mellitus; - Immunization history:: Adult Immunizations not immunized. - Social history:: Patient/guardian denies using alcohol, street drugs, The patient lives with family, Smoking status: Patient reports the use of cigarette tobacco products, smokes one pack cigarettes per day. Screenin:25 Abuse screen: Denies threats or abuse. Nutritional screening: No deficits noted. lr4 Tuberculosis screening: No symptoms or risk factors identified. Fall Risk Fall in past 12 months (25 points). Secondary diagnosis (15 points) IV access (20 points). Ambulatory Aid- None/Bed Rest/Nurse Assist (0 pts). Gait- Weak (10 pts.). Mental Status- Oriented to own ability (0 pts). Total [place]spina Fall Scale indicates High Risk Score (45 or more points). Fall prevention measures have been instituted. Placed Close to Nursing Station Frequent Obs/Assessments Occuring As available patient and family educated on Fall Prevention Program and Strategies. Assessment: 15:23 Pain: Complains of pain in left leg. Neuro: No deficits noted. Level of Consciousness lr4 is awake, alert, obeys commands, Oriented to person, place, time, Apple Peeler Operator are equal bilaterally Moves all extremities. Speech is normal, Facial symmetry appears normal. Cardiovascular: No deficits noted. Rhythm is sinus rhythm with unifocal PVCs. 16:10 General: Pt departed ed ambulatory with all personal effects. lr4 Vital Signs: 13:41 BP 124 / 88; Pulse 91; Resp 18; Pulse Ox 98% on R/A; iw 15:14 BP 115 / 87; Pulse 88; Resp 18; Pulse Ox 96% on R/A; ss7 15:37 BP 120 / 83; Pulse 90; Resp 18; Pulse Ox 99% ; lr4 ED Course: 13:26 Patient arrived in ED. iw 13:26 Crow Guzmna MD is Attending Physician. ma2 13:27 Triage completed. iw 14:00 Inserted saline lock: 20 gauge in right antecubital area, using aseptic technique. lr4 14:12 CT Head Brain wo Cont In Process Unspecified. EDMS 14:20 Bailey Conley, ZINA is Primary Nurse. lr4 14:23 EKG completed in triage. Results shown to MD. lr4 15:01 CBC with Automated Diff Sent. lr4 15:01 Basic Metabolic Panel Sent. lr4 15:02 CPK Sent. lr4 15:02 Ckmb Sent. lr4 15:02 Hepatic Function Sent. lr4 15:02 Lipase Sent. lr4 15:02 Magnesium Sent. lr4 15:02 Protime (+inr) Sent. lr4 15:02 Ptt, Activated Sent. lr4 15:22 CBC with Diff Sent. lr4 15:22 Basic Metabolic Panel Sent. lr4 15:28 No provider procedures requiring assistance completed. lr4 15:28 Arm band placed on right wrist. lr4 15:35 Patient has correct armband on for positive identification. Bed in low position. Call lr4 light in reach. Side rails up X 1. campus monitor on. Pulse ox on. NIBP on. Door closed. Noise minimized. Lights dimmed. Warm blanket given. Verbal reassurance given. Head of bed. 16:11 IV discontinued. lr4 Administered Medications: No medications were administered Point of Care Testing: Blood Glucose: 15:29 Blood Glucose: 90 mg/dL; lr4 Ranges: Outcome: 15:28 Condition: stable lr4 16:02 Discharge ordered by . ma2 16:11 Discharged to home ambulatory. lr4 16:11 Discharge instructions given to patient. lr4 16:30 Patient left the ED. lr4 Signatures: Dispatcher [employer] EDMS Hodan Butler, RN RN iw Crow Guzman MD MD ma2 Willow Radford RN RN ss7 Bailey Conley RN RN lr4
--- NOTE | 2022-01-04 16:03 | EDPHYS ---
Physician Documentation [facility] Name: Ector Trivedi Jr Age: 61 yrs Sex: Male : 1960 Arrival Date: 01/04/2022 Time: : Bed 24 Private MD: ED Physician Crow Guzman HPI: 01/04 13:50 This 61 yrs old Male presents to ER via Ambulatory with complaints of Syncope. ma2 13:50 Onset: The symptoms/episode began/occurred gradually, 1 week(s) ago. I saw this patient ma2 1 hour ago, he left AMA, and then he returned there is another chart with documentation of previous visit. Patient return to ER now as he changes mind and would like to get work-up for syncope, patient has been having some recurrent syncopes over the last 2 weeks, he states he had head trauma 2 weeks ago. Patient clearly said that he was in the ER for 2 hours to get a CT head and he does not want to stay overnight. Historical: - Allergies: 15:34 PENICILLINS; lr4 - Home Meds: 15:34 Unable to obtain [Active]; lr4 - PMHx: 15:34 Cerebrovascular accident; Myocardial infarction; Cerebrovascular accident; lr4 Cerebrovascular accident; Cerebrovascular accident; Myocardial infarction; Myocardial infarction; Hypertensive disorder; Diabetes mellitus; - Immunization history:: Adult Immunizations not immunized. - Social history:: Patient/guardian denies using alcohol, street drugs, The patient lives with family, Smoking status: Patient reports the use of cigarette tobacco products, smokes one pack cigarettes per day. ROS: 13:50 Constitutional: Negative for fever, chills, and weight loss. ma2 13:50 All other systems are negative. Exam: 13:50 Abdomen/GI: Exam negative for ma2 13:50 Constitutional: This is a well developed, well nourished patient who is awake, alert, and in no acute distress. Neck: Trachea midline, no thyromegaly or masses palpated, and no cervical lymphadenopathy. Supple, full range of motion without nuchal rigidity, or vertebral point tenderness. No Meningismus. Chest/axilla: Normal chest wall appearance and motion. Nontender with no deformity. No lesions are appreciated. Cardiovascular: Regular rate and rhythm with a normal S1 and S2. No gallops, murmurs, or rubs. Normal PMI, no JVD. No pulse deficits. Respiratory: Lungs have equal breath sounds bilaterally, clear to auscultation and percussion. No rales, rhonchi or wheezes noted. No increased work of breathing, no retractions or nasal flaring. Abdomen/GI: Soft, non-tender, with normal bowel sounds. No distension or tympany. No guarding or rebound. No evidence of tenderness throughout. MS/ Extremity: Pulses equal, no cyanosis. Neurovascular intact. Full, normal range of motion. Neuro: Awake and alert, GCS 15, oriented to person, place, time, and situation. Cranial nerves II-XII grossly intact. Motor strength 5/5 in all extremities. Sensory grossly intact. Cerebellar exam normal. Normal gait. Vital Signs: 13:41 BP 124 / 88; Pulse 91; Resp 18; Pulse Ox 98% on R/A; iw 15:14 BP 115 / 87; Pulse 88; Resp 18; Pulse Ox 96% on R/A; ss7 15:37 BP 120 / 83; Pulse 90; Resp 18; Pulse Ox 99% ; lr4 MDM: 15:59 Differential Diagnosis: cardiac arrhythmia, cerebrovascular accident, drug effect, ma2 emotional response. Data reviewed: vital signs, nurses notes. Counseling: I had a detailed discussion with the patient and/or guardian regarding: the historical points, exam findings, and any diagnostic results supporting the discharge/admit diagnosis, the presence of at least one elevated blood pressure reading (>120/80) during this emergency department visit, the need for outpatient follow up. ED course: Patient need to be admitted for syncope, he had CVA in the past, and has history of coronary artery disease, patient currently has coronary artery disease. He had multiple syncopes during last week, however patient does not want to be admitted he declined my recommendation and he would like to be discharged he states he would follow-up with PCP. I explained to him risk of having IA, and or sudden , or syncope with head trauma, or syncope while driving. Patient said he will not drive at this time mental he will see PCP tomorrow. 16:02 Patient medically screened. mi01/04 13:36 Order name: Basic Metabolic Panel mi01/04 13:36 Order name: CBC with Diff 01/04 13:36 Order name: CPK 01/04 13:36 Order name: Ckmb [facility] 01/04 13:36 Order name: Hepatic Function [facility] 01/04 13:36 Order name: Lipase [facility] 01/04 13:36 Order name: Magnesium [facility] 01/04 13:36 Order name: Protime (+inr); Complete Time: 15:17 [facility] 01/04 13:36 Order name: Ptt, Activated; Complete Time: 15:17 [facility] 01/04 13:36 Order name: CT Head Brain wo Cont; Complete Time: 15:17 [facility] 01/04 13:36 Order name: EKG; Complete Time: 13:37 [facility] 01/04 13:37 Order name: Basic Metabolic Panel [facility] 01/04 13:37 Order name: CBC with Automated Diff; Complete Time: 15:17 [facility] 01/04 14:48 Order name: Urine Dipstick-Ancillary; Complete Time: 15:17 [facility] 01/04 13:36 Order name: Cardiac monitoring; Complete Time: 15: [facility] 01/04 13:36 Order name: EKG - Nurse/Tech; Complete Time: 15: [facility] 01/04 13:36 Order name: IV Saline Lock; Complete Time: 15: [facility] 01/04 13:36 Order name: Labs collected and sent; Complete Time: 15: [facility] 01/04 13:36 Order name: NPO; Complete Time: 15: mi01/04 13:36 Order name: O2 Per Protocol; Complete Time: 15: [facility] 01/04 13:36 Order name: O2 Sat Monitoring; Complete Time: 15: [facility] 01/04 13:36 Order name: Urine Dipstick-Ancillary (obtain specimen); Complete Time: 15: [facility] Administered Medications: No medications were administered Point of Care Testing: Blood Glucose: 15:29 Blood Glucose: 90 mg/dL; lr4 Ranges: Critical Glucose Levels:Adult <50 mg/dl or >400 mg/dl <40 mg/dl or >180 mg/dl Disposition Summary: 01/04/22 16:02 Discharge Ordered Location: Home ma2 Condition: Stable ma2 Diagnosis - Unspecified fall, sequela - Syncope positive LOC ma2 Followup: ma2 - With: Private Physician - When: Tomorrow - Reason: If symptoms return, Continuance of care Discharge Instructions: - Discharge Summary Sheet mi2 - Syncope, [id number] ma2 Forms: - Medication Reconciliation Form ma2 - Thank You Letter ma2 - Antibiotic Education ma2 - Prescription Opioid Use ma2 Signatures: Dispatcher [employer] EDCrow Benoit MD MD ma2 Bailey Conley RN RN lr4
[2022-01-04 16:40] VITALS: BP 120/83; O2SAT 99
== END 2022-01-04 16:30 | disposition home or self-care (01) ==
LOC: ER 13:25
DX: R55 Syncope and collapse (principal); W19.XXXS Unspecified fall, sequela; F17.210 Nicotine dependence, cigarettes, uncomplicated; I10 Essential (primary) hypertension; E11.9 Type 2 diabetes mellitus without complications; I25.2 Old myocardial infarction; Z88.0 Allergy status to penicillin; Z86.73 Personal history of transient ischemic attack (TIA), and cerebral infarction without residual deficits
CPT/HCPCS: 36415; 70450; 80048; 80076; 81003; 82550; 82553; 83690; 83735; 85025; 85610; 85730; 99284

== ENCOUNTER 2024-05-05 09:39 | Inpatient (IN) | payer OTHER ==
[2024-05-05] MEDS ORDERED: FUROSEMIDE 40 MG/4 ML VIAL ONE (10:09)
[2024-05-05 10:20] LABS: Absolute Eosinophils 0.1 K/uL (0-0.5); Absolute Lymphocytes (CBC) 0.8 K/uL (0.7-4.9); Absolute Monocytes 1.1 K/uL (0.1-1.3); Absolute Neutrophil 6.5 K/uL (1.8-8.0); Basophils % 0.5 % (0-1.3); Eosinophils % 1.3 % (0-4.4); Hematocrit 39.5 % (39.6-49.0); Hemoglobin 12.9 g/dL (13.6-17.9); Lymphocytes % 9.3 % (15.3-44.8); MCH 28.6 pg (27.0-35.0); MCHC 32.6 g/dL (32.0-36.0); MCV 87.7 fL (80-100); MPV 9.4 fL (7.6-11.3); Monocytes % 12.5 % (3.3-12.3); Neutrophils % 76.4 % (41.7-73.7); Platelets 175 thou/uL (152-406); Red Cell Distribution Width 16.9 % (12.1-15.2)
[2024-05-05 10:27] LABS: PTT, Activated Partial Thromb 31.1 SECONDS (24.3-36.9); Protime INR 1.19
[2024-05-05 10:38] LABS: Albumin 2.6 g/dL (3.4-5.0); Albumin/Globulin Ratio 0.7 (1.1-1.8); Anion Gap 8.9 mEq/L (5.0-15.0); Bilirubin Total 0.8 mg/dL (0.2-1.0); Potassium 3.9 mEq/L (3.5-5.1); Protein, Total 6.6 g/dL (6.4-8.2); Troponin High Sensitivity 55.1 pg/mL (<58.9)
--- NOTE | 2024-05-05 11:24 | RAD REPORT ---
EXAM DESCRIPTION: Diannat Single View05/05/2024 10:04 am CLINICAL HISTORY: DYSPNEA COMPARISON: Chest Pa And Lat (2 Views) dated 09/20/2021 TECHNIQUE: Portable AP view of the chest. FINDINGS: The lungs are clear. Central interstitial prominence, partially improved since the prior e xam. No pneumothorax or effusion. The cardiomediastinal contours are unchanged, with stable cardiome pedro. Sequelae of median sternotomy left pacer/ AICD placement. IMPRESSION: Partial improvement of central congestion. No other acute findings.
--- NOTE | 2024-05-05 12:14 | RAD REPORT ---
EXAM DESCRIPTION: CT - Chest For Pe Angio - 05/05/2024 10:54 am CLINICAL HISTORY: DYSPNEA COMPARISON: Chest Single View dated 05/05/2024 TECHNIQUE: Thin axial CT images of the chest were obtained following administration of 100 mL Isovue 370 IV contrast. Multiplanar reconstructions, and maximum intensity projection reconstructions were generated and reviewed. Exam utilizes a protocol for optimal evaluation of pulmonary arterial tree. All CT scans are performed using dose optimization technique as appropriate and may include automated exposure control or mA/KV adjustment according to patient size. FINDINGS: Pulmonary arteries are normal, although some motion artifact at the lower lungs limits melinda luation of the distal vessels. No emboli or other suspicious finding. No acute or significant aorta f indings. Wedge-shaped 2 cm peripheral left lower lobe opacity. No pleural thickening or pleural effusion. No p neumothorax. Mild cardiomegaly. Left chest wall pacer/ AICD in place. No abnormal mediastinal or hilar masses or l ymphadenopathy seen. No chest wall mass or abnormal axilliary lymphadenopathy. IMPRESSION: No evidence of acute central pulmonary emboli. Wedge-shaped 2 cm peripheral left lower lobe opacity, could reflect atelectasis for early airspace di sease.
--- NOTE | 2024-05-05 12:25 | EDPHYS ---
Physician Documentation [facility] Name: Ector Trivedi Jr Age: 63 yrs Sex: Male : 1960 Arrival Date: 05/05/2024 Time: 09:39 Bed 4 Private MD: ED Physician Eliud Lambert HPI: 05/05 09:51 This 63 yrs old Male presents to ER via EMS with complaints of sob. rn 09:51 The patient has shortness of breath at rest, with light activity. Onset: The rn symptoms/episode began/occurred 1 week(s) ago. Duration: The symptoms are intermittent. The patient's shortness of breath is aggravated by exertion, supine position, is alleviated by nothing. Severity of symptoms: At their worst the symptoms were moderate in the emergency department the symptoms are unchanged. The patient has experienced similar episodes in the past. The patient has been recently seen by a physician:. Patient reports about 3 days of worsening dyspnea, worse with exertion and supine position. Patient has a history of CHF and CAD. Recent admission and discharged 1 week ago for pneumonia and diagnosed with pulmonary embolism as well. Patient thinks he is taking his Eliquis but is not sure. Went to clinic today and sent here for further evaluation. Denies fever. Believes still taking antibiotics but is not sure.. Historical: - Allergies: 09:46 PENICILLINS; ko1 - PMHx: 09:46 Cerebrovascular accident; diabetes mellitus; Hypertensive disorder; Myocardial ko1 infarction; - PSHx: 09:46 Coronary artery bypass graft; Stented artery; pacemaker; ko1 - Immunization history:: Adult Immunizations up to date. - Infectious Disease History:: Denies. - Social history:: Smoking status: Patient denies any tobacco usage or history of. - Family history:: not pertinent. - Hospitalizations: : Patient was recently seen at. ROS: 09:51 Constitutional: Negative for fever, chills, and weight loss, Cardiovascular: Negative rn for chest pain, palpitations Respiratory: Positive for shortness of breath Abdomen/GI: Negative for abdominal pain, nausea, vomiting, diarrhea, and constipation, Skin: Chronic skin changes of bilateral lower extremities, denies acute changes Neuro: Negative for headache, weakness, numbness, tingling, and seizure, Exam: 09:51 Constitutional: This is a well developed, well nourished patient who is awake, alert, rn mild tachypnea Cardiovascular: Tachycardic, regular. No pulse deficits. Respiratory: Mild tachypnea, crackles at bilateral bases with wheezing upper lobes Abdomen/GI: Soft, non-tender MS/ Extremity: Pulses equal, no cyanosis. Neurovascular intact. Full, normal range of motion. Equal circumference. Neuro: Awake and alert, GCS 15 10:16 ECG was reviewed by the Attending Physician. rn Vital Signs: 09:44 BP 162 / 102; Pulse 110; Resp 19; Temp 97; Pulse Ox 97% on R/A; ko1 10:15 BP 147 / 95; Pulse 112; Resp 19; Pulse Ox 99% on R/A; ko1 12:00 BP 161 / 109; Pulse 111; Resp 18; Pulse Ox 99% on R/A; ko1 13:08 BP 145 / 99; Pulse 108; Resp 19; Pulse Ox 97% on R/A; ko1 MDM: 09:41 Patient medically screened. rn 10:16 Independent interpretation of the following test(s) in the Emergency Department EKG: rn See my EKG interpretation above X-Ray: My interpretation is Chest x-ray images show cardiomegaly and pulmonary edema per my interpretation. 12:23 Differential diagnosis: Anemia Bronchitis CHF exacerbation, Myocardial Infarction rn pneumonia, Pneumothorax pulmonary edema, Pulmonary Embolism. Data reviewed: vital signs, nurses notes, lab test result(s), EKG, radiologic studies, CT scan, plain films, and as a result, I will admit patient. Consideration of Admission/Observation Patient was admitted/placed on observation. Escalation of care including admission/observation considered. Counseling: I had a detailed discussion with the patient and/or guardian regarding the historical points, exam findings, and any diagnostic results supporting the discharge/admit diagnosis, lab results, radiology results, the need for further work-up and treatment in the hospital. Response to treatment: the patient's symptoms have mildly improved after treatment, and as a result, I will admit patient. 05/05 09:42 Order name: Blood Culture Adult (2) rn 05/05 09:42 Order name: CBC with Diff; Complete Time: 10:44 rn 05/05 09:42 Order name: CMP; Complete Time: 10:44 rn 05/05 09:42 Order name: Lactate w/ 2H reflex if indic.; Complete Time: 10:44 rn 05/05 09:42 Order name: Protime (+inr); Complete Time: 10:44 rn 05/05 09:42 Order name: Ptt, Activated; Complete Time: 10:44 rn 05/05 09:42 Order name: BNP; Complete Time: 10:44 rn 05/05 09:42 Order name: Troponin High Sensitivity; Complete Time: 10:44 rn 05/05 13:45 Order name: Urinalysis w/ reflexes EDMS 05/05 13:45 Order name: Basic Metabolic Panel EDMS 05/05 13:45 Order name: Basic Metabolic Panel EDMS 05/05 13:45 Order name: Basic Metabolic Panel EDMS 05/05 13:45 Order name: Basic Metabolic Panel EDMS 05/05 13:45 Order name: Basic Metabolic Panel EDMS 05/05 13:45 Order name: Basic Metabolic Panel EDMS 05/05 13:45 Order name: CBC with Automated Diff EDMS 05/05 13:45 Order name: CBC with Automated Diff EDMS 05/05 13:45 Order name: CBC with Automated Diff EDMS 05/05 13:45 Order name: CBC with Automated Diff EDMS 05/05 13:45 Order name: CBC with Automated Diff EDMS 05/05 13:45 Order name: CBC with Automated Diff EDMS 05/05 13:45 Order name: Lipid Profile EDMS 05/05 13:45 Order name: Lipid Profile EDMS 05/05 13:45 Order name: Magnesium EDMS 05/05 13:45 Order name: Magnesium EDMS 05/05 13:45 Order name: Magnesium EDMS 05/05 13:45 Order name: Magnesium EDMS 05/05 13:45 Order name: Magnesium EDMS 05/05 13:45 Order name: Magnesium EDMS 05/05 13:45 Order name: Phosphorus EDMS 05/05 13:45 Order name: Phosphorus EDMS 05/05 13:45 Order name: Phosphorus EDMS 05/05 13:45 Order name: Phosphorus EDMS 05/05 13:45 Order name: Phosphorus EDMS 05/05 13:45 Order name: Phosphorus EDMS 05/05 13:45 Order name: Troponin High Sensitivity EDMS 05/05 13:45 Order name: Troponin High Sensitivity EDMS 05/05 13:45 Order name: Troponin High Sensitivity EDMS 05/05 09:42 Order name: Chest Single View XRAY; Complete Time: 11:30 rn 05/05 09:42 Order name: CT Chest For PE Angio; Complete Time: 12:19 rn 05/05 09:42 Order name: Accucheck; Complete Time: 09:44 rn 05/05 09:42 Order name: Cardiac monitoring; Complete Time: 09:43 rn 05/05 09:42 Order name: EKG - Nurse/Tech; Complete Time: 10:10 rn 05/05 09:42 Order name: IV Saline Lock - Large Bore; Complete Time: 09:43 rn 05/05 09:42 Order name: Labs collected and sent; Complete Time: 10:10 rn 05/05 09:42 Order name: O2 Per Protocol; Complete Time: :43 rn 05/05 09:42 Order name: O2 Sat Monitoring; Complete Time: :43 rn 05/05 09:42 Order name: Vital Signs; Complete Time: 09:43 rn EC:16 Rate is 106 beats/min. Rhythm is irregular. Right axis deviation noted. QRS is positive rn in lead aVF and negative in lead I. OK interval is normal. QRS interval is normal. No ST changes noted. Clinical impression: Sinus tachycardia. Interpreted by me. Reviewed by me. Administered Medications: 10:10 Drug: Furosemide IVP 40 mg IVP once; give over 2 minutes Route: IVP; Site: left ko1 antecubital; 10:30 Follow up: Response: No adverse reaction ko1 13:00 Drug: Insulin Regular Human Sub-Q 10 units Sub-Q once {Co-Signature: as6 (jordan Padilla RN).} Route: Sub-Q; Site: left upper arm; 13:15 Follow up: Response: No adverse reaction ko1 Disposition Summary: 05/05/24 12:24 Hospitalization Ordered Notes: Hospitalization Status: Inpatient Admission rn Provider: Humza Lambert rn Location: Telemetry/MedSurg (Inpatient) rn Condition: Stable rn Problem: new rn Symptoms: have improved rn Bed/Room Type: Standard rn Room Assignment: 209(05/05/24 13:58) bd Diagnosis - Unspecified combined systolic (congestive) and diastolic (congestive) heart failure rn - Dyspnea, unspecified rn Forms: - Medication Reconciliation Form rn - SBAR form rn - Leadership Thank You Letter rn Signatures: Dispatcher [employer] EDMS Juana Lea Roman, MD MD rn Ivelisse Brown, ZINA RN ko1 Shyam Padilla RN as6 Corrections: (The following items were deleted from the chart) 09:42 09:42 BLOOD CULTURE*+BA.LAB.BRZ ordered. EDMS EDMS 09:42 09:42 CBC+H.LAB.BRZ ordered. EDMS EDMS 09:42 09:42 COMPREHENSIVE METABOLIC PANEL+C.LAB.BRZ ordered. EDMS EDMS 09:42 09:42 LACTATE+C.LAB.BRZ ordered. EDMS EDMS 09:42 09:42 PROTIME (+INR)+COAG.LAB.BRZ ordered. EDMS EDMS 09:42 09:42 PTT, ACTIVATED+COAG.LAB.BRZ ordered. EDMS EDMS 09:42 09:42 PROBNP+C.LAB.BRZ ordered. EDMS EDMS 09:42 09:42 Troponin High Sensitivity+C.LAB.BRZ ordered. EDMS EDMS 09:42 09:42 Chest Single View+RAD.RAD.BRZ ordered. EDMS EDMS 09:43 09:43 Chest For PE Angio+CT.RAD.BRZ ordered. EDMS EDMS 13:58 12:24 zina cullen
--- NOTE | 2024-05-05 12:25 | ER ---
Nurse's Notes [facility] Name: Ector Trivedi Jr Age: 63 yrs Sex: Male : 1960 Arrival Date: 05/05/2024 Time: 09:39 Bed 4 Private MD: Diagnosis: Unspecified combined systolic (congestive) and diastolic (congestive) heart failure;Dyspnea, unspecified Presentation: 05/05 09:44 Chief complaint: EMS states: patient went to [place] with chest pain and was sent over to [facility] ER. Coronavirus screen: At this time, the client does not indicate any symptoms associated with coronavirus-19. Ebola Screen: No symptoms or risks identified at this time. Initial Sepsis Screen: Does the patient meet any 2 criteria? No. Patient's initial sepsis screen is negative. Does the patient have a suspected source of infection? No. Patient's initial sepsis screen is negative. Risk Assessment: Do you want to hurt yourself or someone else? Patient reports no desire to harm self or others. Onset of symptoms was May 05, 2024. Care prior to arrival: Medication(s) given: ASA, 81 mg, x 4, Normal saline infusion, 100ml IV initiated. 20 GA, in the left antecubital area, Glucose check: 411 Oxygen administered. via a non-rebreather mask. 09:44 Method Of Arrival: EMS: [facility] ko 09:44 Acuity: CHRIS 3 ko1 Triage Assessment: 09:46 General: Appears in no apparent distress. uncomfortable, Behavior is calm, cooperative, ko1 appropriate for age. Pain: Complains of pain in chest. EENT: No deficits noted. Neuro: No deficits noted. Cardiovascular: Reports chest pain, shortness of breath, Patient's skin is warm and dry. Respiratory: Reports shortness of breath on exertion Breath sounds with crackles bilaterally. GI: No deficits noted. : No deficits noted. Derm: No deficits noted. Musculoskeletal: No deficits noted. Historical: - Allergies: 09:46 PENICILLINS; ko1 - PMHx: 09:46 Cerebrovascular accident; diabetes mellitus; Hypertensive disorder; Myocardial ko1 infarction; - PSHx: 09:46 Coronary artery bypass graft; Stented artery; pacemaker; ko1 - Immunization history:: Adult Immunizations up to date. - Infectious Disease History:: Denies. - Social history:: Smoking status: Patient denies any tobacco usage or history of. - Family history:: not pertinent. - Hospitalizations: : Patient was recently seen at. Screenin:15 [facility] ED Fall Risk Assessment (Adult) History of falling in the last 3 months, ko1 including since admission No falls in past 3 months (0 pts) Confusion or Disorientation No (0 pts) Intoxicated or Sedated No (0 pts) Impaired Gait No (0 pts) Mobility Assist Device Used No (0 pt) Altered Elimination No (0 pt) Score/Fall Risk Level 0 - 2 = Low Risk Oriented to surroundings, Maintained a safe environment, Educated pt \T\ family on fall prevention, incl call for assistance when getting out of bed, Assessed \T\ reinforced patient's understanding of fall precautions, Provided non-skid footwear, Hourly rounding (assess needs \T\ fall precautionary measures) done, Used ambulatory aids as needed (educated on \T\ assisted with), Used gait belt as appropriate. Abuse screen: Denies threats or abuse. Denies injuries from another. Nutritional screening: No deficits noted. Tuberculosis screening: No symptoms or risk factors identified. Assessment: 10:00 Reassessment: see triage note. ko1 Vital Signs: 09:44 BP 162 / 102; Pulse 110; Resp 19; Temp 97; Pulse Ox 97% on R/A; ko1 10:15 BP 147 / 95; Pulse 112; Resp 19; Pulse Ox 99% on R/A; ko1 12:00 BP 161 / 109; Pulse 111; Resp 18; Pulse Ox 99% on R/A; ko1 13:08 BP 145 / 99; Pulse 108; Resp 19; Pulse Ox 97% on R/A; ko1 ED Course: 09:40 Patient arrived in ED. rn 09:40 Eliud Lambert MD is Attending Physician. rn 09:43 Ivelisse Brown, ZINA is Primary Nurse. ko1 09:46 Triage completed. ko1 09:46 Arm band placed on right wrist. Patient placed in an exam room, on a stretcher, on ko1 oxygen, on animal sticker, on pulse oximetry, Patient notified of wait time. 10:00 First set of blood cultures drawn by in, EKG done, by ED staff, reviewed by Eliud ortega MD. 10:00 Maintain EMS IV. Dressing intact. Good blood return noted. Site clean \T\ dry. Gauge \T\ ko 1 site: 20g left AC. 10:05 Initial lab(s) drawn, by me, sent to lab. ko1 10:06 Chest Single View XRAY In Process Unspecified. EDMS 10:10 Blood Culture Adult (2) Sent. ko1 10:10 CBC with Diff Sent. ko1 10:10 CMP Sent. ko1 10:10 Lactate w/ 2H reflex if indic. Sent. ko1 10:10 Protime (+inr) Sent. ko1 10:10 Ptt, Activated Sent. ko1 10:10 Troponin High Sensitivity Sent. ko1 10:10 BNP Sent. ko1 10:15 Patient has correct armband on for positive identification. Allergy band placed. Placed ko1 in gown. Bed in low position. Call light in reach. Side rails up X2. Provided Education on: labs, meds, ekg, call light. Client placed on continuous cardiac and pulse oximetry monitoring. NIBP monitoring applied. shank paperer on. Door closed. Noise minimized. Lights dimmed. Warm blanket given. Pillow given. Assisted with urinal. 10:20 Second set of blood cultures drawn by me. ko1 10:55 CT Chest For PE Angio In Process Unspecified. EDMS 12:24 Humza Lambert MD is Hospitalizing Provider. rn 13:07 No provider procedures requiring assistance completed. Patient admitted, IV remains in ko1 place. Administered Medications: 10:10 Drug: Furosemide IVP 40 mg IVP once; give over 2 minutes Route: IVP; Site: left ko1 antecubital; 10:30 Follow up: Response: No adverse reaction ko1 13:00 Drug: Insulin Regular Human Sub-Q 10 units Sub-Q once {Co-Signature: as6 (jordan Padilla RN).} Route: Sub-Q; Site: left upper arm; 13:15 Follow up: Response: No adverse reaction ko1 Medication: 10:15 VIS not applicable for this client. ko1 Intake: 13:05 PO: 240ml (Water); Total: 240ml. ko1 Output: 13:05 Urine: 1100ml (Voided); Total: 1100ml. ko1 Outcome: 12:24 Decision to Hospitalize by Provider. rn 13:07 Admitted to ER Hold. Please see [employer] for further documentation. ko1 13:07 Condition: improved 13:07 Instructed on the need for admit, 15:00 Patient left the ED. sb4 Signatures: Dispatcher [employer] EDEliud Bettencourt MD MD rn Oliver, Kathy, RN RN ko1 Chanell Mora, DA PACon sb4 Shyam Padilla RN as6
--- NOTE | 2024-05-05 12:55 | P.HP ---
Certification for Inpatient Patient admitted to: Inpatient With expected LOS: >2 Midnights Patient will require the following post-hospital care: None Practitioner: I am a practitioner with admitting privileges, knowledge of patient current condition, hospital course, and medical plan of care. Services: Services provided to patient in accordance with Admission requirements found in Title 42 Section 412.3 of the Code of Federal Regulations Patient History Date of Service: 05/05/24 Reason for admission: acute hypoxic resp failure 2/2 CHF exacerbation History of Present Illness: Ector Trivedi is a 63 year old male with Pmhx CVA, tuberculosis, HFrEF, diabetes mellitus, hypertensive disorder, MS /CAD (stent and CABG), and pacemaker who presents to the ED with chief complaint of shortness of breath at rest and with light activity. He was discharged from [place] where he was being treated for a PE and pneumonia, he reports feeling worse since discharge. CTA chest shows no evidence of acute central pulmonary emboli, which shaped 2 cm peripheral left lower lobe opacity. Chest x-ray showing no pneumonia or effusion. Laboratory evaluation with white count normal and mild left shift, BUN/creatinine 27/1.52, serum glucose 386, BNP 4507. On examination, he is short of breath and cannot complete a sentence without coughing, lung sounds are c lear, blood pressure elevated. Ector will be admitted to hospitalist service for further evaluation and treatment. Allergies Penicillins Allergy (Verified 09/21/21 08:21) Rash Home Medications: Aspirin [Aspirin EC 81 MG] 81 mg PO DAILY 08/12/18 Atorvastatin Calcium 2 tab PO DAILY 08/12/18 Clopidogrel Bisulfate [Plavix*] 75 mg PO DAILY 08/12/18 Digoxin [Lanoxin*] 0.125 mg PO DAILY 08/12/18 Insulin Aspart [Novolog Penfill] 35 unit SQ TID 08/12/18 Isosorbide Mononitrate [Isosorbide Mononitrate ER] 60 mg PO DAILY 08/12/18 Sertraline [Zoloft*] 2 tab PO DAILY 08/12/18 Amlodipine [Norvasc] 5 mg PO DAILY 06/21/21 Carvedilol [Coreg] 12.5 mg PO BID 06/21/21 Empagliflozin [Jardiance] 25 mg PO DAILY 06/21/21 Furosemide 80 mg PO BID 06/21/21 Gabapentin 600 mg PO TID 06/21/21 Insulin Glargine,Hum.rec.anlog [Lantus] 60 unit SQ BID 06/21/21 Spironolactone 25 mg PO DAILY 06/21/21 Nitroglycerin 0.4 mg SL SEECOM PRN 09/20/21 - Past Medical/Surgical History Diabetic: Yes -: Tuberculosis -: CAD -: CHF -: HTN -: DM -: Acute Chronic HFREF -: MS -: 2 stents placement -: ICD - Family History Father -: Heart disease, Hypertension, Lung disease, Stroke, Seizures Mother -: Diabetes, Kidney disease Brother -: Diabetes, Kidney disease Sister -: Hypertension, Diabetes - Social History Smoking Status: Current every day smoker (one pack per day) Alcohol use: No CD- Drugs: No Caffeine use: Yes Review of Systems General: Chills Respiratory: Cough, Shortness of Breath Physical Examination - Physical Exam General: Alert, In no apparent distress, Oriented x3 HEENT: Atraumatic, Normocephalic Neck: Supple, 2+ carotid pulse no bruit, JVD not distended Respiratory: Clear to auscultation bilaterally, Normal air movement Cardiovascular: Normal pulses, Regular rate/rhythm, Normal S1 S2 Gastrointestinal: Normal bowel sounds, Soft and benign, Distended (obese) Musculoskeletal: Other (edema to bilateral lower extremities) Integumentary: No rashes Neurological: Normal speech, Normal tone - Studies Laboratory Data (last 24 hrs) 05/05/24 05/05/24 05/05/24 10:05 10:05 10:05 WBC 8.50 Hgb 12.9 L Hct 39.5 L Plt Count 175 PT 13.0 H INR 1.19 APTT 31.1 Sodium 134 L Potassium 3.9 BUN 27 H Creatinine 1.52 H Glucose 386 H Total Bilirubin 0.8 AST 16 ALT 18 Alkaline Phosphatase 109 Assessment and Plan - Plan Assessment and plan Acute hypoxic respiratory failure secondary to CHF exacerbation History of heart failure reduced ejection fraction, AICD Persistent cough -CTA chest shows no evidence of acute central pulmonary emboli, wedged-shaped 2 cm peripheral left lower lobe opacity. -Chest x-ray showing no pneumonia or effusion -BNP 4500 -Troponin 55.1, serial pending -Lasix given in the ED, IV Lasix twice daily -Strict I's and O's, daily weights -Nebulizer treatment -Incentive spirometer -Tachypneic and tachycardic in the ED -Tussionex PRN -COVID/FLU/RSV MAIRA -BUN/creatinine 08/12.52, GFR 51 -Monitor while administering Lasix Diabetes mellitusIDDM, hyperglycemic -Accu-Chek with sliding scale insulin -Initial serum glucose 386 -Insulin given in the ED History of CAD/[place] History of hypertension History of CVA -Continue home medications when available and when appropriate -Continuous telemetry Smoking abuse -cessation education provided DVT PPx heparin Full code LOS 2 to 3 days Discharge Plan: Home Plan to discharge in: 48 Hours - Advance Directives Does patient have a Living Will: No Does patient have a Durable POA for Healthcare: No
[2024-05-05] MEDS ORDERED: INSULIN REGULAR (HUMAN) 100 UNIT/ML ONE (12:58)
[2024-05-05] MEDS ORDERED: HYDRALAZINE HCL 20 MG/ML VIAL IV PRN (13:44)
[2024-05-05] MEDS: INSULIN REGULAR (HUMAN) 100 UNIT/ML SQ SCH (17:20)
[2024-05-05] MEDS: HEPARIN 5000 UNIT/ML 1 ML VIAL SQ SCH (17:21)
[2024-05-05] MEDS: FUROSEMIDE 40 MG/4 ML VIAL IV SCH (17:25)
[2024-05-05 18:11] VITALS: BMI 35.2
[2024-05-05] MEDS ORDERED: HYDROCODONE/CHLORPHEN 5 ML/OSYR PO PRN (18:19)
[2024-05-05 19:09] LABS: INFLUENZA A NAA NEGATIVE (NEGATIVE); RESPIRATORY SYNCYTIAL VIR NAA NEGATIVE (NEGATIVE); SARS-COV-2 RT PCR NEGATIVE (NEGATIVE)
[2024-05-05] MEDS ORDERED: METOPROLOL TARTRATE 5 MG/5 ML INJ IV PRN (20:00)
[2024-05-05 20:32] LABS: Specific Gravity 1.015 (1.005-1.030); Sqamous Epithelial <5 /HPF (None Seen); Urine Bacteria <20 /HPF (<20); Urine Bilirubin NEGATIVE (Negative); Urine Blood 2+ (Negative); Urine Clarity Clear (Clear); Urine Color Light-Yellow (Yellow); Urine Crystals Unidentified Few /HPF (None Seen); Urine Culture Reflex Order NOT NEEDED; Urine Glucose 3+ (Negative); Urine Ketones NEGATIVE (Negative); Urine Microscopic Reflex YN ORDER UMIC; Urine Nitrite NEGATIVE (Negative); Urine Protein 2+ (Negative); Urine Urobilinogen Normal (Normal); Urine WBC <5 /HPF (<5); Urine Yeast (Budding) Occasional /HPF (None Seen); Urine pH 5.5 (5.0-7.0)
[2024-05-06] MEDS: GUAIFENESIN/CODEINE 5ML UCUP PO PRN (00:57)
[2024-05-06 03:36] LABS: Absolute Basophils 0.1 K/uL (0-0.5); Absolute Eosinophils 0.2 K/uL (0-0.5); Absolute Lymphocytes (CBC) 1.3 K/uL (0.7-4.9); Absolute Monocytes 1.4 K/uL (0.1-1.3); Absolute Neutrophil 6.7 K/uL (1.8-8.0); Basophils % 0.5 % (0-1.3); Hematocrit 41.1 % (39.6-49.0); Hemoglobin 13.5 g/dL (13.6-17.9); Lymphocytes % 13.1 % (15.3-44.8); MCHC 32.9 g/dL (32.0-36.0); MCV 87.9 fL (80-100); MPV 9.4 fL (7.6-11.3); Monocytes % 14.6 % (3.3-12.3); Neutrophils % 69.8 % (41.7-73.7); Platelets 177 thou/uL (152-406); RBC Red Blood Cell Count 4.67 M/uL (4.33-5.43); Red Cell Distribution Width 16.7 % (12.1-15.2)
[2024-05-06 03:52] LABS: Anion Gap 7.2 mEq/L (5.0-15.0); Magnesium 2.2 mg/dL (1.6-2.4); Phosphorus 3.4 mg/dL (2.5-4.9); Potassium 4.2 mEq/L (3.5-5.1)
--- NOTE | 2024-05-06 06:53 | P.PN ---
Date of Service: 05/06/24 Subjective Continuing with cough Needs more fluid off Continue with diuresis Started atrial fibrillation shortly after admission, on heparin drip ROS 10 point ROS as noted above, otherwise negative Physical Exam General: Alert and oriented x 3, NAD HEENT: Atraumatic, Normocephalic Neck: Supple, 2+ carotid pulse no bruit, JVD not distended Respiratory: Clear to auscultation bilaterally, symmetrical chest wall movement, cough, 2 L nasal cannula Cardiovascular: Normal pulses, Regular rate/rhythm, Normal S1 S2 Gastrointestinal: Normal bowel sounds, Soft and benign, Distended (obese) Musculoskeletal: Other (edema to bilateral lower extremities) Integumentary: No rashes Neurological: Normal speech, Normal tone Vitals Reviewed Problem list Acute hypoxic respiratory failure secondary to CHF exacerbation History of heart failure reduced ejection fraction, AICD Atrial fibrillation CAD/[place] s/p CABG NSTEMI- likely demand ischemia Persistent cough MAIRA Diabetes mellitusIDDM, hyperglycemic History of CAD/[place] History of hypertension History of CVA Smoking abuse Assessment and Plan Acute hypoxic respiratory failure secondary to CHF exacerbation History of heart failure reduced ejection fraction, AICD Atrial fibrillation CAD/[place] s/p CABG NSTEMI- likely demand ischemia Persistent cough -CTA chest shows no evidence of acute central pulmonary emboli, wedged-shaped 2 cm peripheral left lower lobe opacity. -Chest x-ray showing no pneumonia or effusion -BNP 4500 -Troponin 55.1/61.3/73.2 -consult cardiology-heparin drip, will need Eliquis on discharge -Continue diuresis -Strict I's and O's, daily weights -Nebulizer treatment -Incentive spirometer -Tachypneic and tachycardic in the ED -Tussionex PRN -COVID/FLU/RSV- all negative MAIRA -BUN/creatinine 39/1.83, GFR 41 -Monitor while administering Lasix Diabetes mellitusIDDM, hyperglycemic -Accu-Chek with sliding scale insulin -Initial serum glucose 195 -Insulin given in the ED History of CAD/[place] History of hypertension History of CVA -Continue home medications when available and when appropriate -Continuous telemetry Smoking abuse -cessation education provided DVT PPx heparin gtt Full code LOS 2 to 3 days
[2024-05-06] MEDS: SOTALOL HCL 80 MG TAB PO SCH (08:40)
--- NOTE | 2024-05-06 11:30 | P.CNS ---
Date of Consult: 05/06/24 Chief Complaint: acute hypoxic resp failure 2/2 CHF exacerbation History of Present Illness: Patient with PMH of CAD s/p multiple stents followed by 2 vessel CABG at [facility] 1 year ago, also heart failure reduced EF per patient (25%), ICD placement, HTN, HLD presented with worsening ZALDIVAR and lower extremity swelling, he was recently discharged from [facility] for the same problem and was treated for PNA. he report chronic angina but denies syncope. Allergies Penicillins Allergy (Verified 09/21/21 08:21) Rash Home Medications: RX: Aspirin [Aspirin EC 81 MG] 81 mg PO DAILY 08/12/18 RX: Atorvastatin Calcium 2 tab PO BEDTIME 08/12/18 RX: Digoxin [Lanoxin*] 0.125 mg PO DAILY 08/12/18 RX: Insulin Aspart [Novolog Penfill] 5 unit SQ TID 08/12/18 RX: Sertraline [Zoloft*] 1 tab PO DAILY 08/12/18 Amlodipine [Norvasc] 5 mg PO DAILY 06/21/21 Empagliflozin [Jardiance] 25 mg PO DAILY 06/21/21 Insulin Glargine,Hum.rec.anlog [Lantus] 30 unit SQ BEDTIME 06/21/21 RX: Furosemide 80 mg PO BID 06/21/21 Empagliflozin [Jardiance] 25 mg PO DAILY 05/05/24 RX: Apixaban [Eliquis *] 5 mg PO BID 05/05/24 RX: Lisinopril [Zestril] 5 mg PO DAILY 05/05/24 RX: Metoprolol Succinate [Toprol Xl*] 100 mg PO DAILY 05/05/24 RX: Tramadol HCl [Ultram] 50 mg PO TID PRN 05/05/24 Semaglutide [Ozempic] 1 mg SQ EVERY 7TH DAY 05/05/24 - Past Medical/Surgical History Diabetic: Yes -: Tuberculosis -: CAD -: CHF -: HTN -: DM -: Acute Chronic HFREF -: TN -: 2 stents placement -: ICD -: I/D left foot - Family History Father Medical History: Heart disease, Hypertension, Lung disease, Stroke, Seizures Mother Medical History: Diabetes, Kidney disease Brother Medical History: Diabetes, Kidney disease Sister Medical History: Hypertension, Diabetes - Social History Smoking Status: Current every day smoker Alcohol use: No CD- Drugs: No Caffeine use: Yes Place of Residence: Home Review of Systems 10-point ROS is otherwise unremarkable Physical Examination Temp Pulse Resp BP Pulse Ox 97.3 F 103 H 18 157/81 H 100 05/06/24 08:00 05/06/24 08:00 05/06/24 08:00 05/06/24 08:00 05/06/24 08:00 General: Alert, In no apparent distress HEENT: Atraumatic, PERRLA, Mucous membr. moist/pink, EOMI, Sclerae nonicteric Neck: Supple, 2+ carotid pulse no bruit, No LAD, Without JVD or thyroid abnormality Respiratory: Crackles/rales Cardiovascular: Edema, Irregular heart rate/rhythm Gastrointestinal: Normal bowel sounds, No tenderness Musculoskeletal: No tenderness Integumentary: No rashes Neurological: Normal gait, Normal speech, Normal tone, Normal affect Lymphatics: No axilla or inguinal lymphadenopathy - Problems (1) Acute on chronic systolic (congestive) heart failure Current Visit: Yes Status: Acute Plan: increase lasix to 80 mg IV BID. Resume patient Home Coreg 12.5 mg po BID Hold Aldactone DUE TO kidney function. Monitor input and output and kidney function get Echo (2) Atrial fibrillation Current Visit: Yes Status: Acute Plan: patient was started on Sotalol 80 mg po BID repeat EKG after 3rd dose Heparin drip, will need Eliquis on discharge. no plan for DCCV at this time due to heart failure acute flare. will continue to monitor (3) CAD (coronary artery disease) of artery bypass graft Current Visit: Yes Status: Acute Plan: Complex with multiple stents in the past, followed by CABG x2 in [facility]. Troponin mild elevated, most likely demand secondary to heart failure continue ASA 81 mg daily Continue Lipitor 40 mg daily.
--- NOTE | 2024-05-06 12:43 | EKG ---
Test Date: 2024-05-05 Test Time: 18:45:20 [employer] Founder: LAURA MEASUREMENT RESULTS: Intervals: Rate: 113 NE: 180 QRSD: 102 QT: 350 QTc: 480 [place]: P: 45 NE: 180 QRS: 104 T: 11 INTERPRETIVE STATEMENTS: Sinus tachycardia with premature atrial complexes Rightward axis Cannot rule out Inferior infarct, age undetermined Abnormal ECG Compared to ECG 01/04/2022 14:33:19 Atrial premature complex(es) now present Right-axis deviation now present Myocardial infarct finding now present Sinus rhythm no longer present T-wave abnormality no longer present Possible ischemia no longer present Prolonged QT interval no longer present Electronically Signed On 05-06-24 12:41:39 CDT by Jimmy Devlin
[2024-05-06] MEDS: FUROSEMIDE 40 MG/4 ML VIAL IV SCH (17:11)
[2024-05-07] MEDS: ALBUTEROL 2.5 MG/3 ML NEB SOL NEB PRN (00:16)
[2024-05-07 03:41] LABS: Absolute Basophils 0.1 K/uL (0-0.5); Absolute Eosinophils 0.5 K/uL (0-0.5); Absolute Lymphocytes (CBC) 1.9 K/uL (0.7-4.9); Absolute Monocytes 1.2 K/uL (0.1-1.3); Absolute Neutrophil 6.5 K/uL (1.8-8.0); Basophils % 0.8 % (0-1.3); Eosinophils % 4.8 % (0-4.4); Hematocrit 40.6 % (39.6-49.0); Hemoglobin 13.3 g/dL (13.6-17.9); Lymphocytes % 18.8 % (15.3-44.8); MCHC 32.7 g/dL (32.0-36.0); MCV 88.6 fL (80-100); MPV 10.1 fL (7.6-11.3); Monocytes % 11.5 % (3.3-12.3); Neutrophils % 64.1 % (41.7-73.7); Nucleated Red Blood Cells % 0.2 % (0-0); Platelets 185 thou/uL (152-406); RBC Red Blood Cell Count 4.58 M/uL (4.33-5.43); Red Cell Distribution Width 16.5 % (12.1-15.2)
[2024-05-07 03:55] LABS: Anion Gap 8.2 mEq/L (5.0-15.0); Magnesium 2.2 mg/dL (1.6-2.4); Phosphorus 4.2 mg/dL (2.5-4.9); Potassium 4.2 mEq/L (3.5-5.1)
--- NOTE | 2024-05-07 10:41 | P.PN ---
Subjective Date of Service: 05/07/24 Chief Complaint: acute hypoxic resp failure 2/2 CHF exacerbation Subjective: No new changes, No C/O voiced, Tolerating diet, Ambulating, Improving Review of Systems 10-point ROS is otherwise unremarkable Physical Examination - Vital Signs Temperature: 97.1 F Blood Pressure: 118/78 Pulse: 78 Respirations: 16 Pulse Ox (%): 100 - Physical Exam General: Alert, In no apparent distress HEENT: Atraumatic, PERRLA, EOMI Neck: Supple, JVD not distended Respiratory: Clear to auscultation bilaterally, Normal air movement Cardiovascular: Regular rate/rhythm, Normal S1 S2 Gastrointestinal: Normal bowel sounds, No tenderness Musculoskeletal: No tenderness Integumentary: No rashes Neurological: Normal speech, Normal tone, Normal affect Lymphatics: No axilla or inguinal lymphadenopathy - Studies Medications List Reviewed: Yes Assessment And Plan - Current Problems (Diagnosis) (1) Acute on chronic systolic (congestive) heart failure Current Visit: Yes Status: Acute Plan: lasix to 80 mg IV BID. Resume patient Home Coreg 12.5 mg po BID Hold Aldactone DUE TO kidney function. Monitor input and output and kidney function get Echo (2) Atrial fibrillation Current Visit: Yes Status: Acute Plan: patient was started on Sotalol 80 mg po BID repeat EKG after 3rd dose Heparin drip, will need Eliquis on discharge. Patient is in sinus rhythm on telemetery. will continue to monitor (3) CAD (coronary artery disease) of artery bypass graft Current Visit: Yes Status: Acute Plan: Complex with multiple stents in the past, followed by CABG x2 in [facility]. Troponin mild elevated, most likely demand secondary to heart failure continue ASA 81 mg daily Continue Lipitor 40 mg daily.
[2024-05-07] MEDS: ALBUMIN HUMAN 25% 12.5 GM, FUROSEMIDE 100 MG in NA CHLORIDE 0.9% 40 ML IV SCH (12:33)
--- NOTE | 2024-05-07 13:56 | EKG ---
Test Date: 2024-05-05 Test Time: 09:55:02 Hydraulic Jack Mechanic: KELVIN MEASUREMENT RESULTS: Intervals: Rate: 106 SC: 188 QRSD: 104 QT: 344 QTc: 456 [place]: P: 53 SC: 188 QRS: 114 T: 51 INTERPRETIVE STATEMENTS: Sinus tachycardia with occasional premature ventricular complexes and fusion complexes Right axis deviation Nonspecific T wave abnormality Abnormal ECG Compared to ECG 01/04/2022 14:33:19 Fusion complex(es) now present Ventricular premature complex(es) now present Right-axis deviation now present Sinus rhythm no longer present Possible ischemia no longer present Prolonged QT interval no longer present T-wave abnormality still present Electronically Signed On 05-07-24 13:50:52 CDT by Jimmy Devlin
--- NOTE | 2024-05-07 15:35 | RAD REPORT ---
EXAM DESCRIPTION: US - Renal Ultrasound-Complete - 05/07/2024 1:36 pm CLINICAL HISTORY: MAIRA COMPARISON: No comparisons FINDINGS: Both kidneys are normal in size, shape and echotexture. The right kidney measures 10.8 cm. No hydronephrosis, focal mass or perinephric fluid. The left kidney measures 10.1 cm. 2 x 1.7 cm hypoechoic lesion at the left kidney consistent with a c yst. No hydronephrosis. The urinary bladder is incompletely distended without gross abnormality seen. IMPRESSION: No evidence of hydronephrosis. Benign left renal cyst.
--- NOTE | 2024-05-07 16:50 | CON ---
Date of Consultation: 05/07/2024 Reason For Consultation: Elevated BUN and creatinine, anasarca. 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 Following with Cardiology, Dr. Todd. Next, childhood tuberculosis. Next, CVA without an y residual. The patient came to the hospital with increased leg swelling on the last couple weeks wi th orthopnea. The patient admits that he has been compliant with his diuresis, but this swelling did not resolve. The patient recently admitted to [facility] with pneumonia, treated, medication adjusted since then. He is getting sicker. Swelling get increased with started developing a bliste r in the leg. The patient admits that he has been taking ibuprofen in the last 2 weeks 3 tablets stewart ly. Reviewing the record for the patient, the patient's baseline creatinine around 1.6 with GFR around 50 . The patient again the patient upon admission, the patient exposed to CT with contrast f or PE protocol. The patient at home as I mentioned ibuprofen, lisinopril, and Lasix. During the hos pitalization, the patient continue on Lasix, lisinopril has been DC, kidney function worsened, day be yesterday creatinine was 1.5, currently 1.8. The patient had CT with contrast on the 05/05 on a dmission. Past Medical History: Includes: 1.CVA without residual childhood TB. 2.Diabetes since 2013 complicated with neuropathy and nephropathy. 3.Hypertension. 4.CAD since 1999, status post multiple LA, last one 2017, status post PTCA, status post CABG 2022, s tatus post ICD in 2019, complicated with congestive heart failure, ejection fraction of 25%. 5.Chronic kidney disease, baseline creatinine 1.5, GFR of 50. Allergies: TO PENICILLIN. Home Medications: Include aspirin, Plavix, digoxin, insulin, isosorbide, sertraline, amlodipine, car vedilol, Jardiance, Lasix, gabapentin, insulin, spironolactone, nitroglycerin. Past Surgical History: Include ICD, CABG, and PTCA. Family History: Positive for diabetes and hypertension. Social History: Active smoker. Occasional alcohol. Denied drugs abuse. Review of Systems: Head and Neck: No red eye. No ear pain. GI: No nausea, no vomiting. : No polyuria and has decreased urine output. Slubber Operator: Not applicable. Respiratory: Has shortness of breath. Cardiovascular: Has leg swelling. Has orthopnea. Neuro: Has neuropathy. Musculoskeletal: No joint pain. Skin: No rash. Physical Examination: Vital Signs: When I saw the patient, blood pressure 118/78, pulse of 78, afebrile. Chest: Crackles, bilateral. Heart: S1, S2. Systolic murmur. Abdomen: Soft, nontender. Scrotal swelling. Extremities: +3 edema with venous stasis change with multiple blisters. Neurological: Alert and oriented x3. No focality. Laboratory Data: Back in December, hemoglobin 15.9, potassium 5.1, creatinine 1.7 GFR 39. Upon admi ssion, creatinine 1.5, glucose of 386. GFR 51. Latest lab data today; sodium 134, potassium 4.2, bi carb 31, BUN 39, creatinine 1.8, GFR 41, calcium 8.7, magnesium 2.2, phosphorus 4.2. WBC 10.2, hemog lobin 13.3, eosinophil 1200. Urinalysis specific gravity 1.015. RBC of 20. Current Medications: The patient on is Lasix 80 b.i.d., hydralazine, metoprolol, sotalol. Assessment And Plan: 1.Acute kidney injury, multifactorial secondary to cardiorenal syndrome superimposed with contrast s uperimposed with nonsteroidal use over volume with the presence of hematuria. 2.I am going to send for full workup and we will send for renal ultrasound and serology. 3.I am going to start Lasix drip. 4.Agree with holding lisinopril and nonsteroid and we will follow up. 5.Anasarca, possible secondary to cardiorenal. We will send for TSH and PC ratio. We will start La six drip and we will follow up the patient. 6.Congestive heart failure with exacerbation. Follow up with Cardiology. We will optimize the flui d status with diuresis. 7.Diabetes with acute kidney injury as above. Follow up with primary. 8.Chronic kidney disease stage 3 secondary to diabetes nephropathy, hypertension, nephrosclerosis CI N secondary to nonsteroidal use, cardiorenal syndrome, hold lisinopril. We will start aggressive diu resis. 9.Hematuria. We will follow up renal ultrasound and serology. 10.Cerebrovascular accident, stable. Time spent examining the patient [id number], reviewing data, lab and radiology, placing order, disc ussing the case with the patient, discussing the case with the steaming machine operator and nursing staff more jay n 75 minutes. MARISOL Voice ID: [id number] Report ID: [id number]
[2024-05-07 17:50] LABS: Specific Gravity 1.014 (1.005-1.030); Sqamous Epithelial <5 /HPF (None Seen); Urine Bacteria <20 /HPF (<20); Urine Bilirubin NEGATIVE (Negative); Urine Blood 1+ (Negative); Urine Clarity Turbid (Clear); Urine Color Yellow (Yellow); Urine Culture Reflex Order NOT NEEDED; Urine Glucose 2+ (Negative); Urine Ketones NEGATIVE (Negative); Urine Microscopic Reflex YN ORDER UMIC; Urine Mucus Slight /HPF (None Seen); Urine Nitrite NEGATIVE (Negative); Urine Protein 2+ (Negative); Urine RBC <5 /HPF (None Seen); Urine Urobilinogen Normal (Normal); Urine WBC <5 /HPF (<5); Urine pH 5.5 (5.0-7.0)
[2024-05-08 04:28] LABS: Absolute Basophils 0.1 K/uL (0-0.5); Absolute Eosinophils 0.2 K/uL (0-0.5); Absolute Lymphocytes (CBC) 1.2 K/uL (0.7-4.9); Absolute Monocytes 0.9 K/uL (0.1-1.3); Absolute Neutrophil 5.1 K/uL (1.8-8.0); Basophils % 0.8 % (0-1.3); Eosinophils % 2.9 % (0-4.4); Hematocrit 38.4 % (39.6-49.0); Hemoglobin 12.5 g/dL (13.6-17.9); Lymphocytes % 15.8 % (15.3-44.8); MCH 28.8 pg (27.0-35.0); MCHC 32.5 g/dL (32.0-36.0); MCV 88.4 fL (80-100); MPV 9.6 fL (7.6-11.3); Monocytes % 11.8 % (3.3-12.3); Neutrophils % 68.7 % (41.7-73.7); Nucleated Red Blood Cells % 0.2 % (0-0); Platelets 169 thou/uL (152-406); RBC Red Blood Cell Count 4.35 M/uL (4.33-5.43); Red Cell Distribution Width 16.5 % (12.1-15.2)
[2024-05-08 04:47] LABS: Albumin 3.1 g/dL (3.4-5.0); Anion Gap 10.2 mEq/L (5.0-15.0); Magnesium 2.1 mg/dL (1.6-2.4); Phosphorus 5.2 mg/dL (2.5-4.9); Potassium 4.2 mEq/L (3.5-5.1); Thyroid Stimulating Hormone 1.43 uIU/mL (0.358-3.740); Uric Acid 10.4 mg/dL (3.5-7.2)
[2024-05-08 04:56] LABS: Rheumatoid Factor NEG (NEG)
[2024-05-08] MEDS: METOLAZONE 5 MG TABLET PO SCH ×2 (09:00→13:59)
--- NOTE | 2024-05-08 11:00 | P.PN ---
Subjective Date of Service: 05/08/24 Chief Complaint: acute hypoxic resp failure 2/2 CHF exacerbation Subjective: No new changes, No C/O voiced, Tolerating diet, Ambulating, Improving Review of Systems 10-point ROS is otherwise unremarkable Physical Examination - Vital Signs Temperature: 97.0 F Blood Pressure: 111/72 Pulse: 72 Respirations: 18 Pulse Ox (%): 99 - Physical Exam General: Alert, In no apparent distress HEENT: Atraumatic, PERRLA, EOMI Neck: Supple, JVD not distended Respiratory: Clear to auscultation bilaterally, Normal air movement Cardiovascular: Regular rate/rhythm, Normal S1 S2 Gastrointestinal: Normal bowel sounds, No tenderness Musculoskeletal: No tenderness Integumentary: No rashes Neurological: Normal speech, Normal tone, Normal affect Lymphatics: No axilla or inguinal lymphadenopathy - Studies Medications List Reviewed: Yes Assessment And Plan - Current Problems (Diagnosis) (1) Acute on chronic systolic (congestive) heart failure Current Visit: Yes Status: Acute Plan: patient was switched to lasix drip at 10 cc/hr. Resume patient Home Coreg 6.25 mg po BID Hold Aldactone DUE TO kidney function. Monitor input and output and kidney function get Echo (2) Atrial fibrillation Current Visit: Yes Status: Acute Plan: patient was started on Sotalol 80 mg po BID repeat EKG after 3rd dose Heparin drip, will need Eliquis on discharge. Patient is in sinus rhythm on telemetery. will continue to monitor (3) CAD (coronary artery disease) of artery bypass graft Current Visit: Yes Status: Acute Plan: Complex with multiple stents in the past, followed by CABG x2 in [facility]. Troponin mild elevated, most likely demand secondary to heart failure continue ASA 81 mg daily Continue Lipitor 40 mg daily.
--- NOTE | 2024-05-08 12:40 | P.PN ---
Subjective Date of Service: 05/08/24 Primary Care Provider: Chief Complaint: acute hypoxic resp failure 2/2 CHF exacerbation Subjective: New changes (Of breath significant to swelling) Review of Systems 10-point ROS is otherwise unremarkable General: Weakness Eyes: Unremarkable ENT: Unremarkable Respiratory: Cough, Shortness of Breath Cardiovascular: Orthopnea Gastrointestinal: Distention Genitourinary: Unremarkable Musculoskeletal: Unremarkable Neurological: Weakness Physical Examination - Vital Signs Temperature: 97.0 F Blood Pressure: 111/72 Pulse: 73 Respirations: 16 Pulse Ox (%): 98 - Physical Exam General: Alert, Oriented x3 HEENT: Atraumatic Neck: Supple, JVD distended Respiratory: Crackles/rales Cardiovascular: Normal S1 S2, Edema, Systolic murmur Gastrointestinal: Normal bowel sounds, Soft and benign Musculoskeletal: No clubbing Neurological: Normal gait, Normal strength at 5/5 x4 extr, Cranial nerves 3-12 intact - Studies Laboratory Last Values WBC 10.20 thou/uL (4.3-10.9) 05/07/24 02:57 RBC 4.58 M/uL (4.33-5.43) 05/07/24 02:57 Hgb 13.3 g/dL (13.6-17.9) L 05/07/24 02:57 Hct 40.6 % (39.6-49.0) 05/07/24 02:57 MCV 88.6 fL (80-100) 05/07/24 02:57 MCH 29.0 pg (27.0-35.0) 05/07/24 02:57 MCHC 32.7 g/dL (32.0-36.0) 05/07/24 02:57 RDW 16.5 % (12.1-15.2) H 05/07/24 02:57 Plt Count 185 thou/uL (152-406) 05/07/24 02:57 MPV 10.1 fL (7.6-11.3) 05/07/24 02:57 Neutrophils % 64.1 % (41.7-73.7) 05/07/24 02:57 Lymphocytes % 18.8 % (15.3-44.8) 05/07/24 02:57 Monocytes % 11.5 % (3.3-12.3) 05/07/24 02:57 Eosinophils % 4.8 % (0-4.4) H 05/07/24 02:57 Basophils % 0.8 % (0-1.3) 05/07/24 02:57 Absolute Neutrophils 6.5 K/uL (1.8-8.0) 05/07/24 02:57 Absolute Lymphocytes 1.9 K/uL (0.7-4.9) 05/07/24 02:57 Absolute Monocytes 1.2 K/uL (0.1-1.3) 05/07/24 02:57 Absolute Eosinophils 0.5 K/uL (0-0.5) 05/07/24 02:57 Absolute Basophils 0.1 K/uL (0-0.5) 05/07/24 02:57 PT 13.0 SECONDS (9.4-12.5) H 05/05/24 10:05 INR 1.19 05/05/24 10:05 APTT 31.1 SECONDS (24.3-36.9) 05/05/24 10:05 Sodium 134 mEq/L (136-145) L 05/07/24 02:57 Potassium 4.2 mEq/L (3.5-5.1) 05/07/24 02:57 Chloride 99 mEq/L (98-107) 05/07/24 02:57 Carbon Dioxide 31 mEq/L (21-32) 05/07/24 02:57 Anion Gap 8.2 mEq/L (5.0-15.0) 05/07/24 02:57 BUN 39 mg/dL (7-18) H 05/07/24 02:57 Creatinine 1.83 mg/dL (0.70-1.30) H 05/07/24 02:57 Est GFR (CKD-EPI) 41 ml/min (=/>90) L 05/07/24 02:57 Glucose 167 mg/dL (74-106) H 05/07/24 02:57 POC Glucose 352 mg/dL (65-120) H 05/07/24 08:04 Lactic Acid 1.4 mmol/L (0.4-2.0) 05/05/24 10:05 Calcium 8.7 mg/dL (8.5-10.1) 05/07/24 02:57 Phosphorus 4.2 mg/dL (2.5-4.9) 05/07/24 02:57 Magnesium 2.2 mg/dL (1.6-2.4) 05/07/24 02:57 Total Bilirubin 0.8 mg/dL (0.2-1.0) 05/05/24 10:05 AST 16 U/L (15-37) 05/05/24 10:05 ALT 18 U/L (16-61) 05/05/24 10:05 Alkaline Phosphatase 109 U/L (45-117) 05/05/24 10:05 Troponin I High Sens 73.2 pg/mL (<58.9) H* 05/06/24 03:08 NT-Pro-B Natriuret Pep 4507 pg/mL (<125) H 05/05/24 10:05 Serum Total Protein 6.6 g/dL (6.4-8.2) 05/05/24 10:05 Albumin 2.6 g/dL (3.4-5.0) L 05/05/24 10:05 Globulin 4.0 g/dL (2.3-3.5) H 05/05/24 10:05 Albumin/Globulin Ratio 0.7 (1.1-1.8) L 05/05/24 10:05 Triglycerides 83 mg/dL (<150) 05/06/24 03:08 Cholesterol 116 mg/dL (<200) 05/06/24 03:08 LDL Cholesterol, Calc 59 mg/dL (<130) 05/06/24 03:08 HDL Cholesterol 40 mg/dL (40-60) 05/06/24 03:08 Cholesterol/HDL Ratio 2.90 05/06/24 03:08 Urine Color Light-yellow (Yellow) 05/05/24 20:17 Urine Clarity Clear (Clear) 05/05/24 20:17 Urine pH 5.5 (5.0-7.0) 05/05/24 20:17 Ur Specific [place] 1.015 (1.005-1.030) 05/05/24 20:17 Glucose (UA)(Auto) 3+ (Negative) H 05/05/24 20:17 Urine Ketones Negative (Negative) 05/05/24 20:17 Urine Blood 2+ (Negative) H 05/05/24 20:17 Urine Nitrite Negative (Negative) 05/05/24 20:17 Urine Bilirubin Negative (Negative) 05/05/24 20:17 Urine Urobilinogen Normal (Normal) 05/05/24 20:17 Ur Leukocyte Esterase Negative Carl/uL (Negative) 05/05/24 20:17 Urine RBC 11-20 /HPF (None Seen) H 05/05/24 20:17 Urine WBC <5 /HPF (<5) 05/05/24 20:17 Ur Squamous Epith Cells <5 /HPF (None Seen) 05/05/24 20:17 U Non-Squamous Epi Cells <5 /HPF (None Seen) 05/05/24 20:17 Unidentified Crystals Few /HPF (None Seen) 05/05/24 20:17 Urine Bacteria <20 /HPF (<20) 05/05/24 20:17 Urine Yeast (Budding) Occasional /HPF (None Seen) H 05/05/24 20:17 Urine Culture Reflexed Not needed 05/05/24 20:17 Urine Total Protein 2+ (Negative) H 05/05/24 20:17 Influenza Type A RNA Negative (NEGATIVE) 05/05/24 18:45 RSV RNA (INAAT) Negative (NEGATIVE) 05/05/24 18:45 Influenza Type B RNA Negative (NEGATIVE) 05/05/24 18:45 SARS-CoV-2 RNA (RT-PCR) Negative (NEGATIVE) 05/05/24 18:45 Active Medications Albuterol Sulfate (Albuterol 2.5 Mg/3 Ml Neb Marleny) 2.5 mg NEB Q6HP PRN PRN Reason: SHORTNESS OF BREATH Last Admin: 05/07/24 00:16 Dose: 2.5 mg Guaifenesin/Codeine Phosphate (Guaifenesin/Codeine 5ml Ucup) 5 ml PO QID PRN PRN Reason: COUGH Last Admin: 05/08/24 04:21 Dose: 5 ml Hydralazine HCl (Hydralazine Hcl 20 Mg/Ml Vial) 10 mg IV Q4HP PRN PRN Reason: Goal to achieve SBP in comment Albumin Human 12.5 gm/Furosemide 100 mg/ Sodium Chloride 100 mls @ 20 mls/hr IV Q5H [facility] Last Admin: 05/08/24 08:46 Dose: 100 mls Insulin Human Regular (Insulin Regular (Human) 100 Unit/Ml) 0 unit SQ ACHS ATTILA; Protocol Last Admin: 05/08/24 11:56 Dose: 4 unit Metoprolol Tartrate (Metoprolol Tartrate 5 Mg/5 Ml Inj) 5 mg IV Q6H PRN PRN Reason: Titrate to SBP (MUST DEFINE) Sotalol HCl (Sotalol Hcl 80 Mg Tab) 80 mg PO BID 6AM 6PM ATTILA Last Admin: 05/08/24 05:00 Dose: 80 mg Medications List Reviewed: Yes Assessment And Plan - Plan Assessment And Plan: I. Acute kidney injury, normal-sized kidney 10.8/10.1 proteinuric multifactorial secondary to cardiorenal syndrome superimposed with contrast superimposed with nonsteroidal use over volume with the presence of hematuria. 1-patient poor compliant with fluid restriction I had long discussion with the patient the need to have more fluid restriction patient in agreement 2. I am going to send for full workup and we will send for renal ultrasound and serology. 3. I am going to increase Lasix drip 20 mg/h add metolazone. 4. Agree with holding lisinopril and nonsteroid and we will follow up. II. Anasarca, possible secondary to cardiorenal. Normal TSH and follow-up PC ratio. Increase l Lasix drip and we will add metolazone III. Congestive heart failure with exacerbation. Follow up with Cardiology. We will optimize the fluid status with diuresis. IV. Diabetes with acute kidney injury as above. Follow up with primary. V. 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 We will continue aggressive diuresis. . Hematuria. We will follow up renal ultrasound and serology. VII. Cerebrovascular accident, stable. VIII-secondary hyperparathyroidism calcium and phosphorus are on the goal start the patient on calcitriol Time spent examining the patient [id number], reviewing data, lab and radiology, placing order, discussing the case with the patient, discussing the case with the trampoline team coach and nursing staff more than 55 minutes.
[2024-05-08] MEDS: CALCITROL 0.25 MCG CAP PO SCH (13:59)
--- NOTE | 2024-05-08 14:41 | P.PN ---
Subjective Date of Service: 05/07/24 Chief Complaint: acute hypoxic resp failure 2/2 CHF exacerbation Patient reports no changes in his lower extremity edema. He reports shortness of breath. He denies any chest pain or palpitations. Physical Examination - Vital Signs Temperature: 97.0 F Blood Pressure: 111/72 Pulse: 73 Respirations: 16 Pulse Ox (%): 98 - Studies Medications List Reviewed: Yes Assessment And Plan - Plan Physical Exam General: Alert and oriented x 3, NAD Neck: Supple, JVD not distended Respiratory: Mild bibasilar Rales, adequate breath sounds bilaterally. Cardiovascular: Normal pulses, Regular rate/rhythm, Normal S1 S2. 3+ bilateral lower extremity edema. Gastrointestinal: Normal bowel sounds, Soft and benign, obese abdomen Musculoskeletal: Bilateral lower extremity swelling. Integumentary: Diffuse psoriatic rashes. Neurological: Normal speech, no focal motor deficit. Vitals Reviewed Diagnosis Acute hypoxic respiratory failure secondary to CHF exacerbation Acute on chronic systolic heart failure Status post AICD Atrial fibrillation CAD/[place] s/p CABG NSTEMI- likely demand ischemia MAIRA Diabetes mellitusIDDM, hyperglycemic History of CAD/[place] History of hypertension History of CVA Smoking abuse Assessment and Plan Acute hypoxic respiratory failure secondary to CHF exacerbation Acute on chronic systolic heart failure Atrial fibrillation CAD/[place] s/p CABG NSTEMI- likely demand ischemia Persistent cough -CTA chest shows no evidence of acute central pulmonary emboli, wedged-shaped 2 cm peripheral left lower lobe opacity. -Chest x-ray showing no pneumonia or effusion -BNP 4500 -Troponin 55.1/61.3/73.2 -Patient completed heparin drip for NSTEMI. -Start oral Eliquis. -Patient's anasarca has been refractory to IV Lasix boluses. -Nephrology consulted and patient started on Lasix drip with albumin infusions -Strict I's and O's, daily weights -Fluid restriction to 1500 ml per day -Nebulizer treatment -Incentive spirometer -Tussionex PRN -COVID/FLU/RSV- all negative MAIRA -BUN/creatinine 39/1.83, GFR 41 -Monitor while administering Lasix drip -Nephrology is following Diabetes mellitusIDDM, hyperglycemic -Accu-Chek with sliding scale insulin History of CAD/[place] History of hypertension History of CVA -Continue home medications. -Continuous telemetry Smoking abuse -cessation education provided DVT PPx heparin gtt Full code LOS 2 to 3 days
--- NOTE | 2024-05-08 15:01 | P.PN ---
Subjective Date of Service: 05/08/24 Primary Care Provider: Chief Complaint: acute hypoxic resp failure 2/2 CHF exacerbation Patient's lower extremity swelling improving since Lasix drip was started. He reports improvement in his shortness of breath. He has been noncompliant with fluid restriction. Physical Examination - Vital Signs Temperature: 97.0 F Blood Pressure: 111/72 Pulse: 73 Respirations: 16 Pulse Ox (%): 98 - Studies Medications List Reviewed: Yes Assessment And Plan - Plan Physical Exam General: Alert and oriented x 3, NAD Neck: Supple, JVD not distended Respiratory: Mild bibasilar Rales, adequate breath sounds bilaterally. Cardiovascular: Normal pulses, Regular rate/rhythm, Normal S1 S2. 3+ bilateral lower extremity edema. Gastrointestinal: Normal bowel sounds, Soft and benign, obese abdomen Musculoskeletal: Bilateral lower extremity swelling/edema improved. Integumentary: Diffuse psoriatic rashes. Neurological: Normal speech, no focal motor deficit. Vitals Reviewed Diagnosis Acute hypoxic respiratory failure secondary to CHF exacerbation Acute on chronic systolic heart failure Status post AICD Atrial fibrillation CAD/[place] s/p CABG NSTEMI- likely demand ischemia MAIRA Diabetes mellitusIDDM, hyperglycemic History of CAD/AZ History of hypertension History of CVA Smoking abuse Assessment and Plan Acute hypoxic respiratory failure secondary to CHF exacerbation Acute on chronic systolic heart failure Atrial fibrillation CAD/AZ s/p CABG NSTEMI- likely demand ischemia Persistent cough -CTA chest shows no evidence of acute central pulmonary emboli, wedged-shaped 2 cm peripheral left lower lobe opacity. -Chest x-ray showing no pneumonia or effusion -BNP 4500 -Troponin 55.1/61.3/73.2 -Patient completed heparin drip for NSTEMI. -Start oral Eliquis. -Nephrology Dr. Ireland is following. Lasix drip increased today. -Strict I's and O's, daily weights -Fluid restriction to 1500 ml per day -Nebulizer treatment -Incentive spirometer -Tussionex PRN -COVID/FLU/RSV- all negative MAIRA -Nephrology is following -Monitor renal function. Diabetes mellitusIDDM, hyperglycemic -Accu-Chek with sliding scale insulin History of CAD/AZ History of hypertension History of CVA -Continue home medications. -Continuous telemetry Smoking abuse -cessation education provided DVT PPx Eliquis Full code
[2024-05-08] MEDS: APIXABAN 5 MG TABLET PO SCH (20:23)
[2024-05-09] MEDS: ALPRAZOLAM 0.25 MG TABLET PO PRN (00:25)
[2024-05-09 04:30] LABS: Absolute Eosinophils 0.1 K/uL (0-0.5); Absolute Lymphocytes (CBC) 1.5 K/uL (0.7-4.9); Absolute Monocytes 1.1 K/uL (0.1-1.3); Absolute Neutrophil 6.4 K/uL (1.8-8.0); Basophils % 0.5 % (0-1.3); Eosinophils % 1.3 % (0-4.4); Hematocrit 39.3 % (39.6-49.0); Hemoglobin 12.9 g/dL (13.6-17.9); MCH 28.6 pg (27.0-35.0); MCHC 32.7 g/dL (32.0-36.0); MCV 87.5 fL (80-100); MPV 9.9 fL (7.6-11.3); Monocytes % 12.4 % (3.3-12.3); Neutrophils % 69.8 % (41.7-73.7); Nucleated Red Blood Cells % 0.1 % (0-0); Platelets 192 thou/uL (152-406); RBC Red Blood Cell Count 4.49 M/uL (4.33-5.43); Red Cell Distribution Width 16.5 % (12.1-15.2)
[2024-05-09 04:37] LABS: Albumin 3.7 g/dL (3.4-5.0); Anion Gap 14.1 mEq/L (5.0-15.0); Magnesium 2.3 mg/dL (1.6-2.4); Phosphorus 6.2 mg/dL (2.5-4.9); Potassium 4.1 mEq/L (3.5-5.1)
--- NOTE | 2024-05-09 12:45 | P.PN ---
Subjective Date of Service: 05/09/24 Primary Care Provider: Chief Complaint: acute hypoxic resp failure 2/2 CHF exacerbation Patient's lower extremity swelling and edema continue to improve. He is losing weight from the diuresis He reports progressive improvement in shortness of breath but remaining supplemental oxygen. ion. Physical Examination - Vital Signs Temperature: 97.8 F Blood Pressure: 123/74 Pulse: 70 Respirations: 18 Pulse Ox (%): 99 - Studies Medications List Reviewed: Yes Assessment And Plan - Plan Physical Exam General: Alert and oriented x 3, NAD Neck: Supple, JVD not distended Respiratory: Mild bibasilar Rales, adequate breath sounds bilaterally. Cardiovascular: Normal pulses, Regular rate/rhythm, Normal S1 S2. 3+ bilateral lower extremity edema. Gastrointestinal: Normal bowel sounds, Soft and benign, obese abdomen Musculoskeletal: Bilateral lower extremity swelling/edema improved. Integumentary: Diffuse psoriatic rashes. Neurological: Normal speech, no focal motor deficit. Vitals Reviewed Diagnosis Acute hypoxic respiratory failure secondary to CHF exacerbation Acute on chronic systolic heart failure Status post AICD Atrial fibrillation CAD/[place] s/p CABG NSTEMI- likely demand ischemia MAIRA Diabetes mellitusIDDM, hyperglycemic History of CAD/[place] History of hypertension History of CVA Smoking abuse Assessment and Plan Acute hypoxic respiratory failure secondary to CHF exacerbation Acute on chronic systolic heart failure Atrial fibrillation CAD/[place] s/p CABG NSTEMI- likely demand ischemia Persistent cough -CTA chest shows no evidence of acute central pulmonary emboli, wedged-shaped 2 cm peripheral left lower lobe opacity. -Chest x-ray showing no pneumonia or effusion -BNP 4500 -Troponin 55.1/61.3/73.2 -Patient completed heparin drip for NSTEMI. -Continue oral Eliquis. -Nephrology Dr. Ireland is following. Lasix drip titrated to 20 mg/hr -Intermittent albumin infusion as needed. -Strict I's and O's, daily weights -Fluid restriction to 1500 ml per day -Nebulizer treatment -Incentive spirometer -Pulmonary consult -Wean oxygen -Tussionex PRN -COVID/FLU/RSV- all negative MAIRA -Serum creatinine is trending up with diuresis -Nephrology to follow. -Intermittent albumin infusion as needed. -Monitor renal function. Diabetes mellitusIDDM, hyperglycemic -Accu-Chek with sliding scale insulin History of CAD/[place] History of hypertension History of CVA -Continue home medications. -Continuous telemetry Smoking abuse -cessation education provided DVT PPx Eliquis Full code
--- NOTE | 2024-05-09 15:01 | P.PN ---
Subjective Date of Service: 05/09/24 Primary Care Provider: Chief Complaint: acute hypoxic resp failure 2/2 CHF exacerbation Subjective: No new changes, No C/O voiced, Tolerating diet, Ambulating, Improving Review of Systems 10-point ROS is otherwise unremarkable Physical Examination - Vital Signs Temperature: 97.8 F Blood Pressure: 123/74 Pulse: 70 Respirations: 18 Pulse Ox (%): 99 - Physical Exam General: Alert, In no apparent distress HEENT: Atraumatic, PERRLA, EOMI Neck: Supple, JVD not distended Respiratory: Clear to auscultation bilaterally, Normal air movement Cardiovascular: Regular rate/rhythm, Normal S1 S2 Gastrointestinal: Normal bowel sounds, No tenderness Musculoskeletal: No tenderness Integumentary: No rashes Neurological: Normal speech, Normal tone, Normal affect Lymphatics: No axilla or inguinal lymphadenopathy - Studies Medications List Reviewed: Yes Assessment And Plan - Current Problems (Diagnosis) (1) Acute on chronic systolic (congestive) heart failure Current Visit: Yes Status: Acute Plan: patient lasix drip was increased to 20 cc/hr. if patient kidney function continue to worsen on weekend then will consider doing right heart cath on sunday. Resume patient Home Coreg 6.25 mg po BID Hold Aldactone DUE TO kidney function. Monitor input and output and kidney function get Echo (2) Atrial fibrillation Current Visit: Yes Status: Acute Plan: patient was started on Sotalol 80 mg po BID Heparin drip, will need Eliquis on discharge. Patient is in sinus rhythm on telemetery. will continue to monitor (3) CAD (coronary artery disease) of artery bypass graft Current Visit: Yes Status: Acute Plan: Complex with multiple stents in the past, followed by CABG x2 in [facility]. Troponin mild elevated, most likely demand secondary to heart failure continue ASA 81 mg daily Continue Lipitor 40 mg daily.
[2024-05-09] MEDS: ALBUMIN HUMAN 25% 100 ML IV SCH (20:49)
--- NOTE | 2024-05-09 21:11 | PN ---
Date of Progress Note: 05/09/2024 Subjective: No overnight events. Creatinine trending up to 2.4. Edema improving. Serology workup so far negative. Physical Examination: Vital Signs: Temp 97.1, pulse rate 66, blood pressure 112/76. General: Awake and alert, not in distress. Neck: Supple. No elevated JVD. Heart: Regular rate and rhythm. Normal S1, S2. Chest: Diffuse rales. Abdomen: Soft, nontender. Extremities: No extremity discoloration. Superficial wounds with nonpitting edema. Medications: Include Eliquis, calcitriol, IV Lasix, metolazone, and sotalol. Assessment And Plan: 1.Acute on chronic kidney disease, possibly due to cardiorenal syndrome. Urinalysis showed proteinu [place] and hematuria. Workup for glomerulonephritis had been sent. We will send urine for protein and creatinine. The patient will need accurate I and O. The patient continued to be noncompliant. We w ill place a Pulido catheter. His weight is trending down. Will give albumin. Renal dose medication. Avoid NSAID and contrast. 2.Congestive heart failure. Continue Lasix drip and metolazone. Monitor INR. Daily weight. Low-s alt diet. 3.Atrial fibrillation, currently rate controlled, on sotalol and Eliquis. 4.Acute hypoxic respiratory failure due to fluid overload. 5.Metabolic bone disease, high phosphorus and PTH. Continue calcitriol. I will start the patient o n binders. MEGAN/RADHAL Voice ID: [id number] Report ID: [id number]
[2024-05-10 00:12] LABS: UR PROTEIN 81.5 mg/dL (<11.9); Urine Protein/Creatinine Ratio 1.43 ratio (<0.15)
[2024-05-10 05:40] LABS: Absolute Basophils 0.1 K/uL (0-0.5); Absolute Eosinophils 0.2 K/uL (0-0.5); Absolute Lymphocytes (CBC) 1.4 K/uL (0.7-4.9); Absolute Monocytes 1.4 K/uL (0.1-1.3); Absolute Neutrophil 6.9 K/uL (1.8-8.0); Basophils % 1.1 % (0-1.3); Eosinophils % 1.5 % (0-4.4); Hematocrit 40.5 % (39.6-49.0); Hemoglobin 13.2 g/dL (13.6-17.9); Lymphocytes % 13.8 % (15.3-44.8); MCH 28.7 pg (27.0-35.0); MCHC 32.5 g/dL (32.0-36.0); MCV 88.2 fL (80-100); MPV 9.9 fL (7.6-11.3); Monocytes % 13.8 % (3.3-12.3); Neutrophils % 69.8 % (41.7-73.7); Nucleated Red Blood Cells % 0.1 % (0-0); Platelets 194 thou/uL (152-406); RBC Red Blood Cell Count 4.59 M/uL (4.33-5.43); Red Cell Distribution Width 16.5 % (12.1-15.2)
[2024-05-10 05:50] LABS: Anion Gap 16.2 mEq/L (5.0-15.0); Magnesium 2.4 mg/dL (1.6-2.4); Phosphorus 6.6 mg/dL (2.5-4.9); Potassium 4.2 mEq/L (3.5-5.1)
--- NOTE | 2024-05-10 09:56 | P.CNS ---
Date of Consult: 04/24/24 Reason for Consult: Respiratory distress Primary Care Provider: Chief Complaint: Shortness of breath History of Present Illness: 63 years of age doing problems for a week he first went to [facility] was diagnosed with pneumonia discharged home he did not take some of his medications got worse ended up here in the hospital diagnosis of heart failure no evidence of pneumonia patient is a heavy smoker not take any bronchodilators at home of congestive heart failure renal insufficiency metabolic syndrome has a history of sleep apnea does not use CPAP at home is of shortness of breath any fever chills cough phlegm function has worsened significantly currently he was taking a lot of nonsteroidals and Tylenol at home Allergies Penicillins Allergy (Verified 09/21/21 08:21) Rash Home Medications: Aspirin [Aspirin EC 81 MG] 81 mg PO DAILY 08/12/18 Atorvastatin Calcium 2 tab PO BEDTIME 08/12/18 Digoxin [Lanoxin*] 0.125 mg PO DAILY 08/12/18 Insulin Aspart [Novolog Penfill] 5 unit SQ TID 08/12/18 Sertraline [Zoloft*] 1 tab PO DAILY 08/12/18 Amlodipine [Norvasc] 5 mg PO DAILY 06/21/21 Empagliflozin [Jardiance] 25 mg PO DAILY 06/21/21 Furosemide 80 mg PO BID 06/21/21 Insulin Glargine,Hum.rec.anlog [Lantus] 30 unit SQ BEDTIME 06/21/21 Apixaban [Eliquis *] 5 mg PO BID 05/05/24 Empagliflozin [Jardiance] 25 mg PO DAILY 05/05/24 Lisinopril [Zestril] 5 mg PO DAILY 05/05/24 Metoprolol Succinate [Toprol Xl*] 100 mg PO DAILY 05/05/24 Semaglutide [Ozempic] 1 mg SQ EVERY 7TH DAY 05/05/24 Tramadol HCl [Ultram] 50 mg PO TID PRN 05/05/24 - Past Medical/Surgical History Diabetic: Yes -: Tuberculosis -: CAD -: CHF -: HTN -: DM -: Acute Chronic HFREF -: GA -: Psoriasis -: 2 stents placement -: ICD -: I/D left foot -: CABG - Family History Father Medical History: Heart disease, Hypertension, Lung disease, Stroke, Seizures Mother Medical History: Diabetes, Kidney disease Brother Medical History: Diabetes, Kidney disease Sister Medical History: Hypertension, Diabetes - Social History Smoking Status: Current every day smoker Alcohol use: No CD- Drugs: No Caffeine use: Yes Place of Residence: Home Review of Systems 10-point ROS is otherwise unremarkable General: Weakness Respiratory: Cough, Shortness of Breath Physical Examination Temp Pulse Resp BP Pulse Ox 97.1 F 67 16 141/95 H 96 05/10/24 08:00 05/10/24 08:21 05/10/24 08:00 05/10/24 08:21 05/10/24 08:00 General: Alert, In no apparent distress, Oriented x3 HEENT: Atraumatic Neck: Supple Respiratory: Crackles/rales Cardiovascular: No edema, Regular rate/rhythm, Normal S1 S2 Gastrointestinal: Normal bowel sounds, Soft and benign, Non-distended Musculoskeletal: No clubbing, No swelling - Problems (1) Acute on chronic systolic (congestive) heart failure Current Visit: Yes Status: Acute Plan: Is 63 years of age having problems for about a week coronary artery disease has a pacemaker in place complains of shortness of breath he is short of breath while speaking continue with Lasix echocardiogram pending function has worsened significantly nephrology on Lasix drip (2) COPD (chronic obstructive pulmonary disease) Current Visit: Yes Status: Acute Plan: I suspect that the patient has underlying COPD former heavy smoker have started him on Dulera x-ray clear no evidence of pneumonia no PE Qualifiers: Emphysema type: unspecified
[2024-05-10] MEDS: METOPROLOL XL 100 MG TAB PO SCH (10:00)
[2024-05-10] MEDS: DULERA 200/5 (MOMETASONE/FORMOTEROL) INHALER IH SCH (11:51)
--- NOTE | 2024-05-10 12:40 | P.PN ---
Subjective Date of Service: 05/10/24 Primary Care Provider: Chief Complaint: Shortness of breath Patient's lower extremity swelling and edema has improved. Negative fluid balance over the past 24 hours but not as much as expected with the current Lasix drip. He is losing weight from the diuresis. Physical Examination - Vital Signs Temperature: 96.4 F Blood Pressure: 123/75 Pulse: 68 Respirations: 16 Pulse Ox (%): 98 - Studies Microbiology Data (last 24 hrs): 05/05/24 10:20 Blood - Blood Aerobic Blood Culture - Final No growth in 5 days. 05/05/24 10:20 Blood - Blood Anaerobic Blood Culture - Final No growth in 5 days. 05/05/24 10:00 Blood - Blood Aerobic Blood Culture - Final No growth in 5 days. 05/05/24 10:00 Blood - Blood Anaerobic Blood Culture - Final No growth in 5 days. Medications List Reviewed: Yes Assessment And Plan - Plan Physical Exam General: Alert and oriented x 3, NAD Neck: Supple, JVD not distended Respiratory: Bibasilar Rales, adequate breath sounds bilaterally. Cardiovascular: Normal pulses, Regular rate/rhythm, Normal S1 S2. 2+ bilateral lower extremity edema. Gastrointestinal: Normal bowel sounds, Soft and benign, obese abdomen Musculoskeletal: Bilateral lower extremity swelling/edema improved. Integumentary: Diffuse psoriatic rashes. Neurological: Normal speech, no focal motor deficit. Vitals Reviewed Diagnosis Acute hypoxic respiratory failure secondary to CHF exacerbation Acute on chronic systolic heart failure Status post AICD Atrial fibrillation CAD/NM s/p CABG NSTEMI- likely demand ischemia MAIRA Diabetes mellitusIDDM, hyperglycemic History of CAD/NM History of hypertension History of CVA Smoking abuse Assessment and Plan Acute hypoxic respiratory failure secondary to CHF exacerbation Acute on chronic systolic heart failure Atrial fibrillation CAD/NM s/p CABG NSTEMI- likely demand ischemia Persistent cough -CTA chest shows no evidence of acute central pulmonary emboli, wedged-shaped 2 cm peripheral left lower lobe opacity. -Chest x-ray showing no pneumonia or effusion -BNP 4500 -Troponin 55.1/61.3/73.2 -Patient completed heparin drip for NSTEMI. -Continue oral Eliquis. -Nephrology Dr. Ireland is following. Lasix drip titrated to 20 mg/hr. -Intermittent albumin infusion as needed. -Strict I's and O's, daily weights -Fluid restriction to 1500 ml per day -Nebulizer treatment -Incentive spirometer -Pulmonary input appreciated. -Cardiology input appreciated. -Obtain echocardiogram. -Wean oxygen -Tussionex PRN -COVID/FLU/RSV- all negative MAIRA -Serum creatinine is trending up with diuresis -Cardiorenal syndrome suspected -Nephrology to follow. -Intermittent albumin infusion as needed. -Monitor renal function. Diabetes mellitusIDDM, hyperglycemic -Accu-Chek with sliding scale insulin History of CAD/NM History of hypertension History of CVA -Continue home medications. -Continuous telemetry Smoking abuse -cessation education provided DVT PPx Eliquis Full code
[2024-05-10] MEDS: IPRATROPIUM BROM 0.5MG/2.5ML NEB SCH (13:00)
--- NOTE | 2024-05-10 13:53 | P.PN ---
Subjective Date of Service: 05/10/24 Primary Care Provider: Chief Complaint: Shortness of breath Subjective: No new changes, No C/O voiced, Tolerating diet, Ambulating, Improving Review of Systems 10-point ROS is otherwise unremarkable Physical Examination - Vital Signs Temperature: 96.4 F Blood Pressure: 123/75 Pulse: 68 Respirations: 16 Pulse Ox (%): 98 - Physical Exam General: Alert, In no apparent distress HEENT: Atraumatic, PERRLA, EOMI Neck: Supple, JVD not distended Respiratory: Clear to auscultation bilaterally, Normal air movement Cardiovascular: Regular rate/rhythm, Normal S1 S2, Edema Gastrointestinal: Normal bowel sounds, No tenderness Musculoskeletal: No tenderness Integumentary: No rashes Neurological: Normal speech, Normal tone, Normal affect Lymphatics: No axilla or inguinal lymphadenopathy - Studies Microbiology Data (last 24 hrs): 05/05/24 10:20 Blood - Blood Aerobic Blood Culture - Final No growth in 5 days. 05/05/24 10:20 Blood - Blood Anaerobic Blood Culture - Final No growth in 5 days. 05/05/24 10:00 Blood - Blood Aerobic Blood Culture - Final No growth in 5 days. 05/05/24 10:00 Blood - Blood Anaerobic Blood Culture - Final No growth in 5 days. Medications List Reviewed: Yes Assessment And Plan - Current Problems (Diagnosis) (1) Acute on chronic systolic (congestive) heart failure Current Visit: Yes Status: Acute Plan: patient lasix drip was increased to 20 cc/hr. Kidney function is worsening so will do right heart cath on sunday. Resume patient Home Coreg 6.25 mg po BID Hold Aldactone DUE TO kidney function. Monitor input and output and kidney function get Echo (2) Atrial fibrillation Current Visit: Yes Status: Acute Plan: patient was started on Sotalol 80 mg po BID Hold eliquis tomorrow for right heart cath sunday. Patient is in sinus rhythm on telemetery. will continue to monitor (3) CAD (coronary artery disease) of artery bypass graft Current Visit: Yes Status: Acute Plan: Complex with multiple stents in the past, followed by CABG x2 in [facility]. Troponin mild elevated, most likely demand secondary to heart failure continue ASA 81 mg daily Continue Lipitor 40 mg daily.
[2024-05-10 16:49] LABS: Arterial Blood Carboxyhemoglob 0.8 % (0-1.5); Blood Gas Oxyhemoglobin 89.4 % (94-97); Blood O2 Saturation 92.4 % (92-98.5)
[2024-05-10 16:50] LABS: Blood Gas THB 12.9 g/dl (12-18)
--- NOTE | 2024-05-10 17:51 | P.PN ---
Subjective Date of Service: 05/10/24 Primary Care Provider: Chief Complaint: Shortness of breath Subjective: No overnight events. Cr up to 3.0, UP today ~2.0 liters, will reduce lasix to 10mg/hr plan for RHC on Sunday Physical Examination: General: Awake and alert, not in distress. Neck: Supple. No elevated JVD. Heart: Regular rate and rhythm. Normal S1, S2. Chest: Diffuse rales. Abdomen: Soft, nontender. Extremities: No extremity discoloration. Superficial wounds with non pitting edema. Assessment And Plan: #.Acute on chronic kidney disease, possibly due to cardiorenal syndrome. Urinalysis showed proteinuria and hematuria. UP 1.4 Workup for glomerulonephritis had been sent. The patient will need accurate I and O. daily Wt Renal dose medication. Avoid NSAID and contrast. #Congestive heart failure. Continue Lasix drip , reduce to 10mg/hr and metolazone. Daily weight. Low-salt diet. will stop fraxiga as GFR is <25 plan for RHC on Sunday #.Atrial fibrillation, currently rate controlled, on sotalol and Eliquis. #.Acute hypoxic respiratory failure due to fluid overload. #Metabolic bone disease, high phosphorus and PTH. Continue calcitriol. I will start the patient on binders. Physical Examination - Vital Signs Temperature: 96.7 F Blood Pressure: 137/86 Pulse: 68 Respirations: 16 Pulse Ox (%): 96 - Studies Microbiology Data (last 24 hrs): 05/05/24 10:20 Blood - Blood Aerobic Blood Culture - Final No growth in 5 days. 05/05/24 10:20 Blood - Blood Anaerobic Blood Culture - Final No growth in 5 days. 05/05/24 10:00 Blood - Blood Aerobic Blood Culture - Final No growth in 5 days. 05/05/24 10:00 Blood - Blood Anaerobic Blood Culture - Final No growth in 5 days. Medications List Reviewed: Yes
[2024-05-10] MEDS: ALBUMIN HUMAN 25% 12.5 GM, FUROSEMIDE 100 MG in NA CHLORIDE 0.9% 40 ML IV SCH ×2 (20:00→21:48)
[2024-05-10] MEDS: ALBUMIN HUMAN 25% 100 ML IV SCH (20:44)
[2024-05-10] MEDS ORDERED: ALBUMIN HUMAN 25% 12.5 GM, FUROSEMIDE 100 MG in NA CHLORIDE 0.9% 40 ML IV SCH (22:00)
[2024-05-11 06:34] LABS: Albumin 4.3 g/dL (3.4-5.0); Anion Gap 13.5 mEq/L (5.0-15.0); Phosphorus 5.8 mg/dL (2.5-4.9); Potassium 3.5 mEq/L (3.5-5.1)
[2024-05-11] MEDS: SERTRALINE HCL 50 MG TAB PO SCH (08:31)
[2024-05-11] MEDS: POTASSIUM CL SA 10 MEQ TAB PO ONE (08:32)
[2024-05-11] MEDS: ALBUMIN HUMAN 25% 100 ML IV SCH (08:32)
[2024-05-11] MEDS ORDERED: METOPROLOL XL 100 MG TAB PO SCH (09:00)
[2024-05-11] MEDS ORDERED: EMPAGLIFLOZIN 25 MG PO SCH (09:00)
--- NOTE | 2024-05-11 12:20 | P.PN ---
Subjective Date of Service: 05/11/24 Primary Care Provider: Chief Complaint: Shortness of breath Patient's lower extremity swelling and edema continue to improve Negative fluid balance over the past 24 hours on Lasix drip Physical Examination - Vital Signs Temperature: 96.8 F Blood Pressure: 119/81 Pulse: 70 Respirations: 16 Pulse Ox (%): 97 - Studies Microbiology Data (last 24 hrs): 05/05/24 10:20 Blood - Blood Aerobic Blood Culture - Final No growth in 5 days. 05/05/24 10:20 Blood - Blood Anaerobic Blood Culture - Final No growth in 5 days. 05/05/24 10:00 Blood - Blood Aerobic Blood Culture - Final No growth in 5 days. 05/05/24 10:00 Blood - Blood Anaerobic Blood Culture - Final No growth in 5 days. Medications List Reviewed: Yes Assessment And Plan - Plan Physical Exam General: Alert, NAD Neck: Supple, JVD not distended Respiratory: Bilateral crackles, adequate breath sounds bilaterally. Cardiovascular: Normal pulses, Regular rate/rhythm, Normal S1 S2. 2+ bilateral lower extremity edema. Gastrointestinal: Normal bowel sounds, Soft and benign, obese abdomen Musculoskeletal: Bilateral lower extremity swelling/edema improved. Integumentary: Diffuse psoriatic rashes. Bilateral lower extremity venous stasis dermatitis. Neurological: Normal speech, no focal motor deficit. Vitals Reviewed Diagnosis Acute hypoxic respiratory failure secondary to CHF exacerbation Acute on chronic systolic heart failure Status post AICD Atrial fibrillation CAD/PR s/p CABG NSTEMI- likely demand ischemia MAIRA Diabetes mellitusIDDM, hyperglycemic History of CAD/PR History of hypertension History of CVA Smoking abuse Assessment and Plan Acute hypoxic respiratory failure secondary to CHF exacerbation Acute on chronic systolic heart failure Atrial fibrillation CAD/PR s/p CABG NSTEMI- likely demand ischemia Persistent cough -CTA chest shows no evidence of acute central pulmonary emboli, wedged-shaped 2 cm peripheral left lower lobe opacity. -Chest x-ray showing no pneumonia or effusion -Troponin 55.1/61.3/73.2 -Patient completed heparin drip for NSTEMI. -Continue oral Eliquis. -Nephrology Dr. Ireland is following. Patient is on Lasix drip with intermittent albumin infusions -Strict I's and O's, daily weights -Fluid restriction to 1500 ml per day, sodium restriction. Patient has been informed to avoid drinking soda. -Nebulizer treatment -Incentive spirometer -Pulmonary input appreciated. -Cardiology input appreciated. -Echocardiogram is pending. -Wean oxygen -Tussionex PRN -COVID/FLU/RSV- all negative MAIRA -Serum creatinine now trending down. -Cardiorenal syndrome suspected -Nephrology is following. -Intermittent albumin infusion as needed. -Monitor renal function. Diabetes mellitusIDDM, hyperglycemic -Accu-Chek with sliding scale insulin History of CAD/PR History of hypertension History of CVA -Continue home medications. -Continuous telemetry Smoking abuse -cessation education provided DVT PPx Eliquis Full code
--- NOTE | 2024-05-11 14:49 | P.PN ---
Subjective Date of Service: 05/11/24 Primary Care Provider: Chief Complaint: Shortness of breath Subjective: No new changes, No C/O voiced, Tolerating diet, Ambulating, Improving Review of Systems 10-point ROS is otherwise unremarkable Physical Examination - Vital Signs Temperature: 96.8 F Blood Pressure: 119/81 Pulse: 70 Respirations: 16 Pulse Ox (%): 97 - Physical Exam General: Alert, In no apparent distress HEENT: Atraumatic, PERRLA, EOMI Neck: Supple, JVD not distended Respiratory: Clear to auscultation bilaterally, Normal air movement Cardiovascular: Regular rate/rhythm, Normal S1 S2 Gastrointestinal: Normal bowel sounds, No tenderness Musculoskeletal: No tenderness Integumentary: No rashes Neurological: Normal speech, Normal tone, Normal affect Lymphatics: No axilla or inguinal lymphadenopathy - Studies Microbiology Data (last 24 hrs): 05/05/24 10:20 Blood - Blood Aerobic Blood Culture - Final No growth in 5 days. 05/05/24 10:20 Blood - Blood Anaerobic Blood Culture - Final No growth in 5 days. 05/05/24 10:00 Blood - Blood Aerobic Blood Culture - Final No growth in 5 days. 05/05/24 10:00 Blood - Blood Anaerobic Blood Culture - Final No growth in 5 days. Medications List Reviewed: Yes Assessment And Plan - Current Problems (Diagnosis) (1) Acute on chronic systolic (congestive) heart failure Current Visit: Yes Status: Acute Plan: patient lasix drip was lowered to 10 cc/hr. Kidney function is better today, will do right heart cath on sunday. Resume patient Home Coreg 6.25 mg po BID Hold Aldactone DUE TO kidney function. Monitor input and output and kidney function get Echo (2) Atrial fibrillation Current Visit: Yes Status: Acute Plan: patient was started on Sotalol 80 mg po BID Hold eliquis tonight and in am for right heart cath sunday. Patient is in sinus rhythm on telemetery. will continue to monitor (3) CAD (coronary artery disease) of artery bypass graft Current Visit: Yes Status: Acute Plan: Complex with multiple stents in the past, followed by CABG x2 in [facility]. Troponin mild elevated, most likely demand secondary to heart failure continue ASA 81 mg daily Continue Lipitor 40 mg daily.
--- NOTE | 2024-05-11 16:19 | P.PN ---
Subjective Date of Service: 05/11/24 Primary Care Provider: Chief Complaint: Shortness of breath Subjective: No overnight events. Cr slightly improved plan for RHC tomorrow to better assess volume status will consider goddard catheter placement to better assess volume status Physical Examination: General: Awake and alert, not in distress. Neck: Supple. No elevated JVD. Heart: Regular rate and rhythm. Normal S1, S2. Chest: Diffuse rales. Abdomen: Soft, nontender. Extremities: No extremity discoloration. Superficial wounds with non pitting edema. Assessment And Plan: #.Acute on chronic kidney disease, possibly due to cardiorenal syndrome. Urinalysis showed proteinuria and hematuria. UP 1.4 Workup for glomerulonephritis had been sent. The patient will need accurate I and O. daily Wt Renal dose medication. Avoid NSAID and contrast. #Congestive heart failure. Continue Lasix drip , reduce to 10mg/hr and metolazone. Daily weight. Low-salt diet. hold fraxiga as GFR is <25 plan for RHC on Sunday #.Atrial fibrillation, currently rate controlled, on sotalol and Eliquis. #.Acute hypoxic respiratory failure due to fluid overload. #Metabolic bone disease, high phosphorus and PTH. Continue calcitriol. I will start the patient on binders. Physical Examination - Vital Signs Temperature: 96.8 F Blood Pressure: 119/81 Pulse: 70 Respirations: 16 Pulse Ox (%): 97 - Studies Medications List Reviewed: Yes
[2024-05-12] MEDS ORDERED: MORPHINE 4 MG/ML SYR IV PRN (07:41)
[2024-05-12 08:24] LABS: Albumin 4.7 g/dL (3.4-5.0); Anion Gap 11.8 mEq/L (5.0-15.0); Potassium 3.8 mEq/L (3.5-5.1)
--- NOTE | 2024-05-12 10:01 | P.PN ---
Subjective Date of Service: 05/12/24 Primary Care Provider: Chief Complaint: Shortness of breath Patient's lower extremity swelling and edema continue to improve. Patient remains on the Lasix drip Negative fluid balance. He is currently tolerating room air. Physical Examination - Vital Signs Temperature: 97.4 F Blood Pressure: 141/78 Pulse: 68 Respirations: 18 Pulse Ox (%): 98 - Studies Medications List Reviewed: Yes Assessment And Plan - Plan Physical Exam General: Alert, NAD Neck: Supple, JVD not distended Respiratory: Bilateral crackles, adequate breath sounds bilaterally. Cardiovascular: Normal pulses, Regular rate/rhythm, Normal S1 S2. 2+ bilateral lower extremity edema. Gastrointestinal: Normal bowel sounds, Soft and benign, obese abdomen Musculoskeletal: Bilateral lower extremity swelling/edema improved. Integumentary: Diffuse psoriatic rashes. Bilateral lower extremity venous stasis dermatitis. Neurological: Normal speech, no focal motor deficit. Vitals Reviewed Diagnosis Acute hypoxic respiratory failure secondary to CHF exacerbation Acute on chronic systolic heart failure Status post AICD Atrial fibrillation CAD/AZ s/p CABG NSTEMI- likely demand ischemia MAIRA Diabetes mellitusIDDM, hyperglycemic History of CAD/AZ History of hypertension History of CVA Smoking abuse Assessment and Plan Acute hypoxic respiratory failure secondary to CHF exacerbation Acute on chronic systolic heart failure Atrial fibrillation CAD/AZ s/p CABG NSTEMI- likely demand ischemia Persistent cough -CTA chest shows no evidence of acute central pulmonary emboli, wedged-shaped 2 cm peripheral left lower lobe opacity. -Chest x-ray showing no pneumonia or effusion -Troponin 55.1/61.3/73.2 -Patient completed heparin drip for NSTEMI. -Continue oral Eliquis. -Nephrology Dr. Ireland is following. Patient is on Lasix drip with intermittent albumin infusions. Lasix drip reduced to 5 mg/h. -Patient is a still diuresing well. -Serum creatinine and BUN are trending down -Strict I's and O's, daily weights -Fluid restriction to 1500 ml per day, sodium restriction. Patient has been informed to avoid drinking soda. -Nebulizer treatment -Incentive spirometer -Pulmonary is following -Cardiology is following -Echocardiogram is pending. -Suspected cor pulmonale -Patient scheduled for right heart catheterization today -COVID/FLU/RSV- all negative MAIRA -Serum creatinine continues to trend down. -Cardiorenal syndrome suspected -Nephrology is following. -Intermittent albumin infusion as needed. -Monitor renal function. Diabetes mellitusIDDM, hyperglycemic -Accu-Chek with sliding scale insulin History of CAD/AZ History of hypertension History of CVA -Continue home medications. -Continuous telemetry Smoking abuse -cessation education provided DVT PPx Eliquis Full code
[2024-05-12 10:35] LABS: Magnesium 2.4 mg/dL (1.6-2.4)
--- NOTE | 2024-05-12 11:49 | P.PN ---
Subjective Date of Service: 05/12/24 Primary Care Provider: Chief Complaint: Shortness of breath Subjective: Improving (Patient is doing better still for right heart cath) Review of Systems General: Weakness Respiratory: Shortness of Breath Physical Examination - Vital Signs Temperature: 97.4 F Blood Pressure: 141/78 Pulse: 68 Respirations: 18 Pulse Ox (%): 98 - Physical Exam General: Alert, Oriented x3, Mild distress Respiratory: Clear to auscultation bilaterally, Diminished Cardiovascular: No edema, Regular rate/rhythm, Normal S1 S2 - Studies Medications List Reviewed: Yes Assessment And Plan - Current Problems (Diagnosis) (1) Acute on chronic systolic (congestive) heart failure Current Visit: Yes Status: Acute Plan: Patient is doing better renal function has improved for right heart cath (2) COPD (chronic obstructive pulmonary disease) Current Visit: Yes Status: Acute Plan: Doing better on inhaler presumed underlying COPD Qualifiers: Emphysema type: unspecified
[2024-05-12] MEDS ORDERED: MORPHINE 2 MG/ML SYR IV PRN (11:59)
[2024-05-12] MEDS: NA CHLORIDE 0.9% 1,000 ML IV SCH ×2 (12:52→20:38)
--- NOTE | 2024-05-12 14:27 | ECHO ---
HEIGHT: 5 ft 7 in WEIGHT: 215 lb 9 oz DATE OF STUDY: 05/12/[address]: Timur Mahoney MD 2-DIMENSIONAL: YES M.MODE: YES DOPPLER: YES COLOR FLOW: YES TDS: PORTABLE: YES DEFINITY: BUBBLE STUDY: DIAGNOSIS: ACUTE SYSTOLIC HEART FAILURE CARDIAC HISTORY: CATHERIZATION: YES SURGERY: YES PROSTHETIC VALVE: NO PACEMAKER: YES MEASUREMENTS (cm) DIASTOLIC (NORMALS) SYSTOLIC (NORMALS) IVSd 1.1 (0.6-1.2) LA Diam 3.8 (1.9-4.0) LVEF 25-30% LVIDd 5.5 (3.5-5.7) LVIDs 4.7 (2.0-3.5) %FS 13% LVPWd 1.1 (0.6-1.2) Ao Diam 2.8 (2.0-3.7) 2 DIMENSIONAL ASSESSMENT: RIGHT ATRIUM: NORMAL LEFT ATRIUM: ENLARGED RIGHT VENTRICLE: NORMAL, PACEMAKER WIRE LEFT VENTRICLE: DILATED LEFT VENTRICLE TRICUSPID VALVE: MILD TRICUSPID REGURGITATION MITRAL VALVE: MILD MITRAL REGURGITATION PULMONIC VALVE: NORMAL AORTIC VALVE: CALCIFIED, NO AORTIC STENOSIS PERICARDIAL EFFUSION: NONE AORTIC ROOT: NORMAL LEFT VENTRICULAR WALL MOTION: SEVERE GLOBAL HYPOKINESIS DOPPLER/COLOR FLOW: SEE BELOW COMMENTS: 1. SEVERELY DEPRESSED LEFT VENTRICULAR EJECTION FRACTION 25-30% 2. SEVERE GLOBAL HYPOKINESIS 3. LEFT ATRIAL ENLARGEMENT 4. MODERATE DIASTOLIC DYSFUNCTION 5. MILD MITRAL REGURGITATION/ MILD TRICUSPID REGURGITATION TECHNOLOGIST: THALIA AWAD
[2024-05-12] MEDS: NA CHLORIDE 0.9% 500 ML ONE (15:18)
[2024-05-12] MEDS ORDERED: LIDOCAINE 1% 20 ML MDV ONE (16:11)
[2024-05-12] MEDS ORDERED: MIDAZOLAM HCL 2 MG/2 ML INJ ONE (16:11)
[2024-05-12] MEDS ORDERED: FENTANYL CITR 100 MCG/2 ML ONE (16:11)
[2024-05-12] MEDS ORDERED: HEPA 1000U/500MLS 2,000 UNIT/1,000 ML BAG IV ONE (16:11)
[2024-05-12] MEDS: POTASSIUM CL SA 10 MEQ TAB PO ONE (18:29)
[2024-05-12] MEDS: INSULIN GLARGINE 100 UNIT/ML SQ SCH (20:39)
--- NOTE | 2024-05-12 21:57 | PN ---
Date of Progress Note: 05/12/2024 Chief Complaint: Cardiorenal syndrome, acute on chronic kidney injury, congestive heart failure exac erbation. Subjective: Patient denies new complaints. He has dyspnea with activity. He denies chest pain or s yncope. He was admitted for shortness of breath, was found to have acute on chronic kidney failure, cardiorenal syndrome. He is on Lasix drip. Urine output improved with Lasix drip and leg edema has improved. Review of Systems: Denies fever, chills. Physical Examination: General: Awake, alert, not in acute distress. Neck: Supple. No JVD. Heart: S1 and S2. Chest: Crackles at the bases. No wheezing. No rhonchi. Abdomen: Obese, soft, nontender. Extremities: Edema present. No oozing. No drainage. Impression And Plan: 1.Acute kidney injury on chronic kidney disease due to cardiorenal syndrome. Urinalysis showed prot einuria and hematuria. Urine protein is 1.4 g corresponding with moderately severe to severe protein uria. Workup for glomerulonephritis was sent. The patient will need a kidney biopsy in near future. Renal function has declined. The patient may need renal biopsy when he is stable. He is undergoin g cardiac catheterization today. The patient had high risk of progressively worse acute kidney injur y in setting of congestive heart failure exacerbation. Patient is on Lasix drip, dose was reduced du e to acute kidney injury. Plan is to stop metolazone. 2.Atrial fibrillation, rate controlled. Patient is on Eliquis. The patient is on systemic anticoag ulation and cannot have renal biopsy due to systemic anticoagulation. 3.Acute hypoxemic respiratory failure due to fluid overload. The patient is treated with Lasix. In the near future, he may need to start hemodialysis. 4.Elevated phosphorus, elevated intact PTH. Patient has underlying chronic kidney disease and renal osteodystrophy. The patient was started on low phosphorus diet and binders. EB/MODL Voice ID: [id number] Report ID: [id number]
[2024-05-12] MEDS: ALBUTEROL 2.5 MG/3 ML NEB SOL NEB PRN (23:37)
--- NOTE | 2024-05-13 03:33 | OP ---
Date of Procedure: 05/12/2024 Surgeon: HANSA FREEMAN Procedure Performed: Right heart catheterization. Indication: Pulmonary hypertension. Description Of Procedure: After risks, benefits, and alternatives were explained, the patient agreed to procedure and signed informed consent. The patient was brought into cardiac catheterization labo ratory, prepped and draped in usual sterile fashion. Then, I accessed right IJ using a micropuncture kit, ultrasound guidance, placed a 7-[place] sheath and took a 7-[place] balloon-tipped [place] catheter into the right atrium, right ventricle, pulmonary artery, and wedge, obtained waveform and p ressure, and then performed thermodilution cardiac output and removed the [place] and the sheath. Manua l pressure was used for closure with good hemostasis. The patient was sent to recovery in stable con dition. Sedation: None. Complications: None. Bleeding: Less than 50 mL. Findings: RA pressure is 19/23, mean of 16, RV pressure is 53/7, mean of 20, PA pressure is 56/30, m zahra of 41. Pulmonary wedge pressure is 24 mmHg. Cardiac output is 3.68 L/minute. Pulmonary vascula r resistance of 4.6 Wood units. Conclusion: Severe pulmonary hypertension, which is mixed venous and are primary arterial. The grisel pheral vascular resistance is elevated, but the wedge is extremely high. Recommendation: Aggressive diuresis. SR/MODL Voice ID: [id number] Report ID: [id number]
--- NOTE | 2024-05-13 08:40 | P.PN ---
Date of Service: 05/13/24 Subjective: noncompliant with diet and fluid restriction states swelling and breathing is improving RHC done yesterday, severe pulm hypertension no new/worsening symptoms ROS: 10 point ROS as noted above, otherwise negative Physical Exam: GEN: Alert, oriented, NAD HEENT: Normal conjunctiva, sclera anicteric, CV: Regular rate and rhythm (paced), 1+ b/l lower extremity edema Pulm: Nonlabored respirations on room air, clear bilaterally Neuro: Normal speech, normal affect Problem List: Acute hypoxic respiratory failure secondary to acute on chronic systolic CHF exacerbation (HFrEF 25-30%) NSTEMI - demand ischemia hx CAD s/p CABG Atrial fibrillation, paroxysmal Status post AICD MAIRA on CKD3 IDDM2 with hyperglycemia Hx of hypertension Hx of CVA Tobacco dependance Acute hypoxic respiratory failure secondary to acute on chronic systolic CHF exacerbation (HFrEF 25-30%) NSTEMI - suspect demand ischemia hx CAD s/p CABG CTA chest (05/05): no PE. 2cm wedged-shaped peripheral left lower lobe opacity. Echo (05/10): 25-30% EF, severe global hypokinesis, left atrial enlargement, moderate diastolic dysfunction, mild MR/TR Troponins mildly elevated. secondary to demand ischemia. Cardiology and nephrology are following. s/p right heart catheterization (05/12): severe pulmonary hypertension - peripheral vascular resistance is elevated but wedge is extremely high Previously on lasix/albumin drip (05/10-05/13); deescalated to PO lasix 80 mg BID (05/13) 1500 ml Fluid restriction/day, sodium restriction. Strict I/Os, daily weights Pulmonary is following continue nebs, incentive spirometry Suspected cor pulmonale COVID/FLU/RSV- all negative Atrial fibrillation, paroxysmal Status post AICD s/p heparin drip, transitioned to eliquis (05/08) continue sotalol 80 mg BID eliquis held 05/12 for right heart cath continue home eliquis Cardiology is following MAIRA on CKD3 suspect multifactorial secondary to cardiorenal syndrome superimposed with NSAID use / contrast induced renal u/s (05/07): benign left renal cyst, otherwise negative. Nephrology consulted continue to monitor renal function. monitor electrolytes and replete as needed. renal fxn recovering, however now s/p cath Previously on lasix/albumin drip (05/10-05/13); deescalated to PO lasix 80 mg BID (05/13) Creatinine improving continue to hold lisinopril / NSAIDs IDDM2 with hyperglycemia accu-checks, SSI continue semglee 30u at bedtime. Adjust as needed Hx of hypertension Hx of CVA continue home medications as appropriate Hold lisinopril Tobacco dependance cessation advised. VTE: Eliquis held for heart cath Code: Full Dispo: Home, ~1-2 days Pending improvement on renal function / cardiac recs
--- NOTE | 2024-05-13 10:34 | P.PN ---
Subjective Date of Service: 05/13/24 Primary Care Provider: Chief Complaint: Shortness of breath better Subjective: Other (Had cardiac cath yesterday) Review of Systems 10-point ROS is otherwise unremarkable Physical Examination - Vital Signs Temperature: 97.4 F Blood Pressure: 128/72 Pulse: 68 Respirations: 18 Pulse Ox (%): 63 - Physical Exam General: Alert, Oriented x3 HEENT: Atraumatic, PERRLA Neck: Supple, 2+ carotid pulse no bruit Respiratory: Crackles/rales Cardiovascular: Edema, Systolic murmur Capillary refill: <2 Seconds Gastrointestinal: Normal bowel sounds, Hypoactive, Soft and benign, Non- distended Musculoskeletal: No clubbing Neurological: Normal gait, Normal strength at 5/5 x4 extr - Studies Laboratory Tests 05/05/24 05/05/24 05/05/24 10:05 10:05 10:05 WBC 8.50 RBC 4.50 Hgb 12.9 L Hct 39.5 L MCV 87.7 MCH 28.6 MCHC 32.6 RDW 16.9 H Plt Count 175 MPV 9.4 Neutrophils % 76.4 H Lymphocytes % 9.3 L Monocytes % 12.5 H Eosinophils % 1.3 Basophils % 0.5 Absolute Neutrophils 6.5 Absolute Lymphocytes 0.8 Absolute Monocytes 1.1 Absolute Eosinophils 0.1 Absolute Basophils 0.0 PT INR APTT Sodium 134 L Potassium 3.9 Chloride 103 Carbon Dioxide 26 Anion Gap 8.9 BUN 27 H Creatinine 1.52 H Est GFR (CKD-EPI) 51 L Glucose 386 H POC Glucose Lactic Acid 1.4 Calcium 8.4 L Phosphorus Magnesium Total Bilirubin 0.8 AST 16 ALT 18 Alkaline Phosphatase 109 Troponin I High Sens 55.1 NT-Pro-B Natriuret Pep 4507 H Serum Total Protein 6.6 Albumin 2.6 L Globulin 4.0 H Albumin/Globulin Ratio 0.7 L Triglycerides Cholesterol LDL Cholesterol, Calc HDL Cholesterol Cholesterol/HDL Ratio Urine Color Urine Clarity Urine pH Ur Specific [place] Glucose (UA)(Auto) Urine Ketones Urine Blood Urine Nitrite Urine Bilirubin Urine Urobilinogen Ur Leukocyte Esterase Urine RBC Urine WBC Ur Squamous Epith Cells U Non-Squamous Epi Cells Unidentified Crystals Urine Bacteria Urine Yeast (Budding) Urine Culture Reflexed Urine Total Protein Influenza Type A RNA RSV RNA (INAAT) Influenza Type B RNA SARS-CoV-2 RNA (RT-PCR) 05/05/24 05/05/24 05/05/24 10:05 15:40 18:12 WBC RBC Hgb Hct MCV MCH MCHC RDW Plt Count MPV Neutrophils % Lymphocytes % Monocytes % Eosinophils % Basophils % Absolute Neutrophils Absolute Lymphocytes Absolute Monocytes Absolute Eosinophils Absolute Basophils PT 13.0 H INR 1.19 APTT 31.1 Sodium Potassium Chloride Carbon Dioxide Anion Gap BUN Creatinine Est GFR (CKD-EPI) Glucose POC Glucose 306 H Lactic Acid Calcium Phosphorus Magnesium Total Bilirubin AST ALT Alkaline Phosphatase Troponin I High Sens 61.3 H* NT-Pro-B Natriuret Pep Serum Total Protein Albumin Globulin Albumin/Globulin Ratio Triglycerides Cholesterol LDL Cholesterol, Calc HDL Cholesterol Cholesterol/HDL Ratio Urine Color Urine Clarity Urine pH Ur Specific [place] Glucose (UA)(Auto) Urine Ketones Urine Blood Urine Nitrite Urine Bilirubin Urine Urobilinogen Ur Leukocyte Esterase Urine RBC Urine WBC Ur Squamous Epith Cells U Non-Squamous Epi Cells Unidentified Crystals Urine Bacteria Urine Yeast (Budding) Urine Culture Reflexed Urine Total Protein Influenza Type A RNA RSV RNA (INAAT) Influenza Type B RNA SARS-CoV-2 RNA (RT-PCR) 05/05/24 05/05/24 05/05/24 18:45 20:17 20:40 WBC RBC Hgb Hct MCV MCH MCHC RDW Plt Count MPV Neutrophils % Lymphocytes % Monocytes % Eosinophils % Basophils % Absolute Neutrophils Absolute Lymphocytes Absolute Monocytes Absolute Eosinophils Absolute Basophils PT INR APTT Sodium Potassium Chloride Carbon Dioxide Anion Gap BUN Creatinine Est GFR (CKD-EPI) Glucose POC Glucose 227 H Lactic Acid Calcium Phosphorus Magnesium Total Bilirubin AST ALT Alkaline Phosphatase Troponin I High Sens NT-Pro-B Natriuret Pep Serum Total Protein Albumin Globulin Albumin/Globulin Ratio Triglycerides Cholesterol LDL Cholesterol, Calc HDL Cholesterol Cholesterol/HDL Ratio Urine Color Light-yellow Urine Clarity Clear Urine pH 5.5 Ur Specific [place] 1.015 Glucose (UA)(Auto) 3+ H Urine Ketones Negative Urine Blood 2+ H Urine Nitrite Negative Urine Bilirubin Negative Urine Urobilinogen Normal Ur Leukocyte Esterase Negative Urine RBC 11-20 H Urine WBC <5 Ur Squamous Epith Cells <5 U Non-Squamous Epi Cells <5 Unidentified Crystals Few Urine Bacteria <20 Urine Yeast (Budding) Occasional H Urine Culture Reflexed Not needed Urine Total Protein 2+ H Influenza Type A RNA Negative RSV RNA (INAAT) Negative Influenza Type B RNA Negative SARS-CoV-2 RNA (RT-PCR) Negative 0605/06/24 05/06/24 03:08 03:08 03:08 WBC 9.60 RBC 4.67 Hgb 13.5 L Hct 41.1 MCV 87.9 MCH 29.0 MCHC 32.9 RDW 16.7 H Plt Count 177 MPV 9.4 Neutrophils % 69.8 Lymphocytes % 13.1 L Monocytes % 14.6 H Eosinophils % 2.0 Basophils % 0.5 Absolute Neutrophils 6.7 Absolute Lymphocytes 1.3 Absolute Monocytes 1.4 H Absolute Eosinophils 0.2 Absolute Basophils 0.1 PT INR APTT Sodium 135 L Potassium 4.2 Chloride 100 Carbon Dioxide 32 Anion Gap 7.2 BUN 28 H Creatinine 1.59 H Est GFR (CKD-EPI) 49 L Glucose 195 H POC Glucose Lactic Acid Calcium 8.6 Phosphorus 3.4 Magnesium 2.2 Total Bilirubin AST ALT Alkaline Phosphatase Troponin I High Sens 73.2 H* NT-Pro-B Natriuret Pep Serum Total Protein Albumin Globulin Albumin/Globulin Ratio Triglycerides 83 Cholesterol 116 LDL Cholesterol, Calc 59 HDL Cholesterol 40 Cholesterol/HDL Ratio 2.90 Urine Color Urine Clarity Urine pH Ur Specific [place] Glucose (UA)(Auto) Urine Ketones Urine Blood Urine Nitrite Urine Bilirubin Urine Urobilinogen Ur Leukocyte Esterase Urine RBC Urine WBC Ur Squamous Epith Cells U Non-Squamous Epi Cells Unidentified Crystals Urine Bacteria Urine Yeast (Budding) Urine Culture Reflexed Urine Total Protein Influenza Type A RNA RSV RNA (INAAT) Influenza Type B RNA SARS-CoV-2 RNA (RT-PCR) 05/06/24 05/06/24 05/06/24 08:01 11:23 15:06 WBC RBC Hgb Hct MCV MCH MCHC RDW Plt Count MPV Neutrophils % Lymphocytes % Monocytes % Eosinophils % Basophils % Absolute Neutrophils Absolute Lymphocytes Absolute Monocytes Absolute Eosinophils Absolute Basophils PT INR APTT Sodium Potassium Chloride Carbon Dioxide Anion Gap BUN Creatinine Est GFR (CKD-EPI) Glucose POC Glucose 197 H 364 H 333 H Lactic Acid Calcium Phosphorus Magnesium Total Bilirubin AST ALT Alkaline Phosphatase Troponin I High Sens NT-Pro-B Natriuret Pep Serum Total Protein Albumin Globulin Albumin/Globulin Ratio Triglycerides Cholesterol LDL Cholesterol, Calc HDL Cholesterol Cholesterol/HDL Ratio Urine Color Urine Clarity Urine pH Ur Specific [place] Glucose (UA)(Auto) Urine Ketones Urine Blood Urine Nitrite Urine Bilirubin Urine Urobilinogen Ur Leukocyte Esterase Urine RBC Urine WBC Ur Squamous Epith Cells U Non-Squamous Epi Cells Unidentified Crystals Urine Bacteria Urine Yeast (Budding) Urine Culture Reflexed Urine Total Protein Influenza Type A RNA RSV RNA (INAAT) Influenza Type B RNA SARS-CoV-2 RNA (RT-PCR) 05/06/24 05/07/24 05/07/24 19:16 02:57 02:57 WBC 10.20 RBC 4.58 Hgb 13.3 L Hct 40.6 MCV 88.6 MCH 29.0 MCHC 32.7 RDW 16.5 H Plt Count 185 MPV 10.1 Neutrophils % 64.1 Lymphocytes % 18.8 Monocytes % 11.5 Eosinophils % 4.8 H Basophils % 0.8 Absolute Neutrophils 6.5 Absolute Lymphocytes 1.9 Absolute Monocytes 1.2 Absolute Eosinophils 0.5 Absolute Basophils 0.1 PT INR APTT Sodium 134 L Potassium 4.2 Chloride 99 Carbon Dioxide 31 Anion Gap 8.2 BUN 39 H Creatinine 1.83 H Est GFR (CKD-EPI) 41 L Glucose 167 H POC Glucose 194 H Lactic Acid Calcium 8.7 Phosphorus 4.2 Magnesium 2.2 Total Bilirubin AST ALT Alkaline Phosphatase Troponin I High Sens NT-Pro-B Natriuret Pep Serum Total Protein Albumin Globulin Albumin/Globulin Ratio Triglycerides Cholesterol LDL Cholesterol, Calc HDL Cholesterol Cholesterol/HDL Ratio Urine Color Urine Clarity Urine pH Ur Specific [place] Glucose (UA)(Auto) Urine Ketones Urine Blood Urine Nitrite Urine Bilirubin Urine Urobilinogen Ur Leukocyte Esterase Urine RBC Urine WBC Ur Squamous Epith Cells U Non-Squamous Epi Cells Unidentified Crystals Urine Bacteria Urine Yeast (Budding) Urine Culture Reflexed Urine Total Protein Influenza Type A RNA RSV RNA (INAAT) Influenza Type B RNA SARS-CoV-2 RNA (RT-PCR) 05/07/24 08:04 WBC RBC Hgb Hct MCV MCH MCHC RDW Plt Count MPV Neutrophils % Lymphocytes % Monocytes % Eosinophils % Basophils % Absolute Neutrophils Absolute Lymphocytes Absolute Monocytes Absolute Eosinophils Absolute Basophils PT INR APTT Sodium Potassium Chloride Carbon Dioxide Anion Gap BUN Creatinine Est GFR (CKD-EPI) Glucose POC Glucose 352 H Lactic Acid Calcium Phosphorus Magnesium Total Bilirubin AST ALT Alkaline Phosphatase Troponin I High Sens NT-Pro-B Natriuret Pep Serum Total Protein Albumin Globulin Albumin/Globulin Ratio Triglycerides Cholesterol LDL Cholesterol, Calc HDL Cholesterol Cholesterol/HDL Ratio Urine Color Urine Clarity Urine pH Ur Specific [place] Glucose (UA)(Auto) Urine Ketones Urine Blood Urine Nitrite Urine Bilirubin Urine Urobilinogen Ur Leukocyte Esterase Urine RBC Urine WBC Ur Squamous Epith Cells U Non-Squamous Epi Cells Unidentified Crystals Urine Bacteria Urine Yeast (Budding) Urine Culture Reflexed Urine Total Protein Influenza Type A RNA RSV RNA (INAAT) Influenza Type B RNA SARS-CoV-2 RNA (RT-PCR) Active Medications Albuterol Sulfate (Albuterol 2.5 Mg/3 Ml Neb Marleny) 2.5 mg NEB [id number] PRN PRN Reason: SHORTNESS OF BREATH Last Admin: 05/13/24 07:32 Dose: 2.5 mg Alprazolam (Alprazolam 0.25 Mg Tablet) 0.25 mg PO TID PRN PRN Reason: ANXIETY Last Admin: 05/11/24 23:13 Dose: 0.25 mg Apixaban (Apixaban 5 Mg Tablet) 5 mg PO BID [facility] Last Admin: 05/13/24 08:48 Dose: Not Given Calcitriol (Calcitrol 0.25 Mcg Cap) 0.25 mcg PO Q48H ATTILA Last Admin: 05/12/24 13:00 Dose: Not Given Guaifenesin/Codeine Phosphate (Guaifenesin/Codeine 5ml Ucup) 5 ml PO QID PRN PRN Reason: COUGH Last Admin: 05/08/24 04:21 Dose: 5 ml Hydralazine HCl (Hydralazine Hcl 20 Mg/Ml Vial) 10 mg IV Q4HP PRN PRN Reason: FOR SBP>160 OR DBP>100 MMHG Albumin Human 12.5 gm/Furosemide 100 mg/ Sodium Chloride 100 mls @ 10 mls/hr IV Q10H [facility] Last Admin: 05/13/24 08:47 Dose: 100 mls Insulin Glargine (Insulin Glargine 100 Unit/Ml) 30 unit SQ BEDTIME ATTILA Last Admin: 05/12/24 20:39 Dose: 30 unit Insulin Human Regular (Insulin Regular (Human) 100 Unit/Ml) 0 unit SQ ACHS [facility]; Protocol Last Admin: 05/13/24 08:46 Dose: 8 unit Ipratropium [place] (Ipratropium Brom 0.5mg/2.5ml) 0.5 mg NEB [id number] ATTILA Last Admin: 05/13/24 07:32 Dose: 0.5 mg Metoprolol Tartrate (Metoprolol Tartrate 5 Mg/5 Ml Inj) 5 mg IV Q6H PRN PRN Reason: Titrate to SBP (MUST DEFINE) Morphine Sulfate (Morphine 2 Mg/Ml Syr) 2 mg IV Q4H PRN PRN Reason: Pain scale 8-10 (Severe) Sertraline HCl (Sertraline Hcl 50 Mg Tab) 50 mg PO DAILY [facility] Last Admin: 05/13/24 08:46 Dose: 50 mg Sotalol HCl (Sotalol Hcl 80 Mg Tab) 80 mg PO BID 6AM 6PM [facility] Last Admin: 05/13/24 07:27 Dose: 80 mg Medications List Reviewed: Yes Assessment And Plan - Plan Assessment And Plan: I. Acute kidney injury, normal-sized kidney 10.8/10.1 proteinuric multifactorial secondary to cardiorenal syndrome superimposed with contrast superimposed with nonsteroidal use over volume with the presence of hematuria. Patient's status post cardiac cath yesterday 1-patient poor compliant with fluid restriction I had long discussion with the patient the need to have more fluid restriction patient in agreement 2. I am going to send for full workup and we will send for renal ultrasound and serology. 3. I am going to increase Lasix drip 20 mg/h add metolazone. 4. Continue holding lisinopril and nonsteroid and we will follow up. 5-resume diuresis today II. Anasarca, possible secondary to cardiorenal. Normal TSH and follow-up PC ratio. resume diuresis today Consider switching to IV push side of the drip III. ADD congestive heart failure with exacerbation. Follow up with Cardiology. Postcardiac cath May 12 we will optimize the fluid status with diuresis. IV. Diabetes with acute kidney injury as above. Follow up with primary. V. 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 We will continue aggressive diuresis. . Hematuria. We will follow up renal ultrasound and serology. VII. Cerebrovascular accident, stable. VIII-secondary hyperparathyroidism calcium and phosphorus are on the goal start the patient on calcitriol Time spent examining the patient [id number], reviewing data, lab and radiology, placing order, discussing the case with the patient, discussing the case with the cdl team truck driver and nursing staff more than 55 minutes.
[2024-05-13 11:19] LABS: Absolute Basophils 0.1 K/uL (0-0.5); Absolute Eosinophils 0.2 K/uL (0-0.5); Absolute Lymphocytes (CBC) 0.8 K/uL (0.7-4.9); Absolute Monocytes 1.3 K/uL (0.1-1.3); Absolute Neutrophil 6.2 K/uL (1.8-8.0); Basophils % 0.8 % (0-1.3); Eosinophils % 1.9 % (0-4.4); Hematocrit 38.5 % (39.6-49.0); Hemoglobin 12.6 g/dL (13.6-17.9); MCH 28.5 pg (27.0-35.0); MCHC 32.7 g/dL (32.0-36.0); MCV 87.4 fL (80-100); Monocytes % 15.2 % (3.3-12.3); Neutrophils % 73.1 % (41.7-73.7); Platelets 246 thou/uL (152-406); RBC Red Blood Cell Count 4.41 M/uL (4.33-5.43); Red Cell Distribution Width 16.6 % (12.1-15.2)
[2024-05-13 11:35] LABS: Anion Gap 10.5 mEq/L (5.0-15.0); Potassium 3.5 mEq/L (3.5-5.1)
[2024-05-13] MEDS: INSULIN REGULAR (HUMAN) 100 UNIT/ML SQ SCH (17:20)
[2024-05-13] MEDS: FUROSEMIDE 40 MG TABLET PO SCH (17:20)
[2024-05-13] MEDS: GABAPENTIN 100 MG CAP PO SCH (20:49)
[2024-05-13] MEDS: INSULIN GLARGINE 100 UNIT/ML SQ SCH (20:59)
[2024-05-14 06:19] LABS: Anion Gap 9.4 mEq/L (5.0-15.0); Magnesium 2.4 mg/dL (1.6-2.4); Potassium 3.4 mEq/L (3.5-5.1)
[2024-05-14] MEDS: POTASSIUM CL SA 10 MEQ TAB PO ONE (08:29)
[2024-05-14 08:53] VITALS: O2SAT 95
--- NOTE | 2024-05-14 11:14 | P.PN ---
Subjective Date of Service: 05/14/24 Primary Care Provider: Chief Complaint: Shortness of breath better Subjective: No new changes Review of Systems 10-point ROS is otherwise unremarkable General: Unremarkable Eyes: Unremarkable ENT: Unremarkable Respiratory: Shortness of Breath Cardiovascular: Orthopnea Gastrointestinal: Unremarkable Genitourinary: Unremarkable Musculoskeletal: Unremarkable Neurological: Unremarkable Physical Examination - Vital Signs Temperature: 97.9 F Blood Pressure: 110/60 Pulse: 83 Respirations: 16 Pulse Ox (%): 97 - Physical Exam General: Alert, Oriented x3 HEENT: Atraumatic Neck: Supple, 2+ carotid pulse no bruit, JVD not distended Respiratory: Clear to auscultation bilaterally Cardiovascular: Normal S1 S2, Edema, Systolic murmur Capillary refill: <2 Seconds Gastrointestinal: Normal bowel sounds, Hypoactive, Soft and benign, Non- distended Musculoskeletal: No clubbing Neurological: Normal gait, Normal strength at 5/5 x4 extr, Cranial nerves 3-12 intact - Studies Medications List Reviewed: Yes Assessment And Plan - Plan Assessment And Plan: I. Acute kidney injury, normal-sized kidney 10.8/10.1 proteinuric multifactorial secondary to cardiorenal syndrome superimposed with contrast superimposed with nonsteroidal use over volume status post cardiac cath May 12-patient poor compliant with fluid restriction I had long discussion with the patient the need to have more fluid restriction patient in agreement 2. I am going to send for full workup and we will send for renal ultrasound and serology. 3. Patient okay from the renal standpoint for DC planning, Lasix 80 mg twice daily 4. Continue holding lisinopril and nonsteroid and we will follow up. 5-follow-up in the office in 2 to 3 weeks II. Anasarca, possible secondary to cardiorenal. Echocardiogram ejection fraction 20-30% with severe global hypokinesia normal TSH and follow-up PC ratio. Continue Lasix 80 mg twice daily III. congestive heart failure with exacerbation. Follow up with Cardiology. Postcardiac cath May 12 we will optimize the fluid status with diuresis. IV. Diabetes with acute kidney injury as above. Follow up with primary. V. 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 We will continue aggressive diuresis. . Hematuria. We will follow up renal ultrasound and serology. VII. Cerebrovascular accident, stable. VIII-secondary hyperparathyroidism calcium and phosphorus are on the goal start the patient on calcitriol Time spent examining the patient [id number], reviewing data, lab and radiology, placing order, discussing the case with the patient, discussing the case with the pressure steamer tender and nursing staff more than 55 minutes.
[2024-05-14 12:02] VITALS: BP 140/89; TEMP 97.5
--- NOTE | 2024-05-14 12:20 | P.DS ---
Admission Date: 05/07/24 Discharge Date: 05/14/24 Primary Care Provider: Disposition: ROUTINE DISCHARGE Discharge Condition: GOOD Reason for Admission: Shortness of breath better Consultations: Cardiology - Dr. Devlin / Dr. Menon Nephrology - Dr. Ireland, Dr. Sears, Dr. [facility] Pulmonology - Dr. Caceres Brief History of Present Illness: 63yo M, PMH: CVA, tuberculosis, HFrEF, diabetes mellitus, hypertensive disorder, IN /CAD (stent and CABG), and pacemaker Patient presents to the ED with chief complaint of shortness of breath at rest and with light activity. He was discharged from [place] where he was being treated for a PE and pneumonia, he reports feeling worse since discharge. CTA chest shows no evidence of acute central pulmonary emboli, which shaped 2 cm peripheral left lower lobe opacity. Chest x-ray showing no pneumonia or effusion. Laboratory evaluation with white count normal and mild left shift, BUN/creatinine 27/1.52, serum glucose 386, BNP 4507. On examination, he is short of breath and cannot complete a sentence without coughing, lung sounds are clear, blood pressure elevated. Hospital Course: Problem List: Acute hypoxic respiratory failure secondary to acute on chronic combined systolic/diastolic CHF exacerbation (HFrEF 25-30%) NSTEMI - demand ischemia hx CAD s/p CABG Atrial fibrillation, paroxysmal Status post AICD MAIRA on CKD3, improving IDDM2 with hyperglycemia Hx of hypertension Hx of CVA Tobacco dependance Physician discharge instructions: Patient presented with worsening dyspnea, cough, lower extremity swelling secondary to acute on chronic combined systolic/diastolic CHF exacerbation. Troponins were mildly elevated but trended flat - secondary to demand ischemia. Echocardiogram noted 25-30% EF, severe global hypokinesis, left atrial enlargement, moderate diastolic dysfunction, mild mitral and tricuspid regurgitation. Cardiology was consulted. Patient underwent right heart cath which noted severe pulmonary hypertension and Dr. Devlin recommended medical management with aggressive diuresis. He was initially started on a lasix/albumin drip for ~3 days and had improvement of his symptoms. Lasix was deescalated from IV to PO and continued to improve throughout his hospitalization, along with his renal function. Patient was feeling better, respiratory status improved, lower extremity edema improved, and was deemed stable for discharge. Patient is to continue lasix 80 mg twice daily on discharge. Check weight daily around the same time each day. Keep daily diary of weights to take to follow up appointments. Advised to avoid taking lasix after 4-5 pm or else will be up all night urinating. Patient was noted to have an MAIRA on admission. Suspect multifactorial etiology secondary to cardiorenal syndrome superimposed with NSAID use / contrast induced. Nephrology was consulted. Renal ultrasound noted a benign left renal cyst, otherwise negative. Renal function initially worsened, but then improved with lasix/albumin drip and withholding lisinopril/NSAIDs and further improved after deescalating to oral lasix. Creatinine on discharge: 2.12 Continue to hold lisinopril for now until seen by nephrology at follow up appointment. Repeat blood work in ~1 week to monitor renal function. Discussed with patient importance of adhering to strict fluid restrictions (1.5 liters/day) - to avoid recurrent episodes. Avoid foods high in salt. During his hospitalization patient was noted to be in afib. Cardiology was consulted and recommended sotalol, heparin drip and patient converted back into normal sinus rhythm. Heparin drip was transitioned to oral eliquis on 05/08. Patient remained stable in normal sinus rhythm for rest of hospitalization. Advised to continue eliquis on discharge. Initially thought to be new for the patient, but on review of prior medications, he was on eliquis and digoxin and metoprolol. Patient stated he was previously diagnosed with afib. Pulmonology was consulted. Added dulera to his medications for COPD component. Recommend follow up in ~2 weeks Medications: Lasix 80 mg twice daily Sotalol 80 mg twice daily Refills for lasix, eliquis sent to [facility] in [place] Stop metoprolol, lisinopril, digoxin, amlodipine Avoid NSAIDs (aspirin, ibuprofen, naproxen, aleve, etc) continue other home medications not listed as previously prescribed Follow up: PCP 3-5 days Nephrology 2-3 weeks Cardiology 2-4 weeks Pulmonology in ~2 weeks Please call to schedule / confirm appointments Physical Exam: GEN: Alert, oriented, NAD HEENT: Normal conjunctiva, sclera anicteric, CV: Regular rate and rhythm, no edema Pulm: Nonlabored respirations on room air, clear bilaterally ABD: soft, nontender, nondistended MSK: no joint tenderness Integumentary: No rashes Neuro: Normal speech, normal affect Vital Signs/Physical Exam: Temp Pulse Resp BP Pulse Ox 97.5 F 68 18 140/89 95 05/14/24 11:56 05/14/24 11:56 05/14/24 11:56 05/14/24 11:56 05/14/24 11:56 Laboratory Data at Discharge: WBC 8.50 thou/uL (4.3-10.9) 05/13/24 10:58 Hgb 12.6 g/dL (13.6-17.9) L 05/13/24 10:58 Hct 38.5 % (39.6-49.0) L 05/13/24 10:58 Plt Count 246 thou/uL (152-406) 05/13/24 10:58 PT 13.0 SECONDS (9.4-12.5) H 05/05/24 10:05 INR 1.19 05/05/24 10:05 APTT 31.1 SECONDS (24.3-36.9) 05/05/24 10:05 Sodium 130 mEq/L (136-145) L 05/14/24 05:40 Potassium 3.4 mEq/L (3.5-5.1) L 05/14/24 05:40 BUN 89 mg/dL (7-18) H 05/14/24 05:40 Creatinine 2.12 mg/dL (0.70-1.30) H 05/14/24 05:40 Glucose 200 mg/dL (74-106) H 05/14/24 05:40 Uric Acid 10.4 mg/dL (3.5-7.2) H 05/08/24 03:58 Phosphorus 4.0 mg/dL (2.5-4.9) 05/12/24 07:11 Phosphorus 4.0 mg/dL (2.5-4.9) 05/12/24 07:11 Magnesium 2.4 mg/dL (1.6-2.4) 05/14/24 05:40 Total Bilirubin 0.8 mg/dL (0.2-1.0) 05/05/24 10:05 AST 16 U/L (15-37) 05/05/24 10:05 ALT 18 U/L (16-61) 05/05/24 10:05 Alkaline Phosphatase 109 U/L (45-117) 05/05/24 10:05 Triglycerides 83 mg/dL (<150) 05/06/24 03:08 Cholesterol 116 mg/dL (<200) 05/06/24 03:08 HDL Cholesterol 40 mg/dL (40-60) 05/06/24 03:08 Cholesterol/HDL Ratio 2.90 05/06/24 03:08 Home Medications: Aspirin [Aspirin EC 81 MG] 81 mg PO DAILY 08/12/18 Atorvastatin Calcium 2 tab PO BEDTIME 08/12/18 Insulin Aspart [Novolog Penfill] 5 unit SQ TID 08/12/18 Sertraline [Zoloft*] 1 tab PO DAILY 08/12/18 Empagliflozin [Jardiance] 25 mg PO DAILY 06/21/21 Insulin Glargine,Hum.rec.anlog [Lantus] 30 unit SQ BEDTIME 06/21/21 Apixaban [Eliquis *] 5 mg PO BID 05/05/24 Empagliflozin [Jardiance] 25 mg PO DAILY 05/05/24 Semaglutide [Ozempic] 1 mg SQ EVERY 7TH DAY 05/05/24 Tramadol HCl [Ultram] 50 mg PO TID PRN 05/05/24 Furosemide 80 mg PO BID 30 Days #60 tab 05/14/24 Gabapentin [Neurontin*] 100 mg PO TID 30 Days #90 cap 05/14/24 Mometasone/Formoterol [Dulera 200 Mcg/5 Mcg Inhaler] 2 puff IH BID inhaler 05/14/24 Sotalol HCl [Betapace*] 80 mg PO BID 30 Days #60 tab 05/14/24 New Medications: Sotalol HCl [Betapace*] 80 mg PO BID 30 Days #60 tab Furosemide 80 mg PO BID 30 Days #60 tab Gabapentin [Neurontin*] 100 mg PO TID 30 Days #90 cap Physician Discharge Instructions: Physician discharge instructions: Patient presented with worsening dyspnea, cough, lower extremity swelling secondary to acute on chronic combined systolic/diastolic CHF exacerbation. Troponins were mildly elevated but trended flat - secondary to demand ischemia. Echocardiogram noted 25-30% EF, severe global hypokinesis, left atrial enlargement, moderate diastolic dysfunction, mild mitral and tricuspid regurgitation. Cardiology was consulted. Patient underwent right heart cath which noted severe pulmonary hypertension and Dr. Devlin recommended medical management with aggressive diuresis. He was initially started on a lasix/albumin drip for ~3 days and had improvement of his symptoms. Lasix was deescalated from IV to PO and continued to improve throughout his hospitalization, along with his renal function. Patient was feeling better, respiratory status improved, lower extremity edema improved, and was deemed stable for discharge. Patient is to continue lasix 80 mg twice daily on discharge. Check weight daily around the same time each day. Keep daily diary of weights to take to follow up appointments. Advised to avoid taking lasix after 4-5 pm or else will be up all night urinating. Patient was noted to have an MARIA on admission. Suspect multifactorial etiology secondary to cardiorenal syndrome superimposed with NSAID use / contrast induced. Nephrology was consulted. Renal ultrasound noted a benign left renal cyst, otherwise negative. Renal function initially worsened, but then improved with lasix/albumin drip and withholding lisinopril/NSAIDs and further improved after deescalating to oral lasix. Creatinine on discharge: 2.12 Continue to hold lisinopril for now until seen by nephrology at follow up appointment. Repeat blood work in ~1 week to monitor renal function. Discussed with patient importance of adhering to strict fluid restrictions (1.5 liters/day) - to avoid recurrent episodes. Avoid foods high in salt. During his hospitalization patient was noted to be in afib. Cardiology was consulted and recommended sotalol, heparin drip and patient converted back into normal sinus rhythm. Heparin drip was transitioned to oral eliquis on 05/08. Patient remained stable in normal sinus rhythm for rest of hospitalization. Advised to continue eliquis on discharge. Initially thought to be new for the patient, but on review of prior medications, he was on eliquis and digoxin and metoprolol. Patient stated he was previously diagnosed with afib. Pulmonology was consulted. Added dulera to his medications for COPD component. Recommend follow up in ~2 weeks Medications: Lasix 80 mg twice daily Sotalol 80 mg twice daily Refills for lasix, eliquis sent to [facility] in [place] Stop metoprolol, lisinopril, digoxin, amlodipine Avoid NSAIDs (aspirin, ibuprofen, naproxen, aleve, etc) continue other home medications not listed as previously prescribed Follow up: PCP 3-5 days Nephrology 2-3 weeks Cardiology 2-4 weeks Pulmonology in ~2 weeks Please call to schedule / confirm appointments Followup: Jacinda Alcocer FNP [Primary Care Provider] - Time spent managing pt's care (in minutes): 45
[2024-05-14] MEDS ORDERED: ATORVASTATIN 40 MG TAB PO SCH (21:00)
[2024-05-14 21:35] LABS: P-ANCA Anti-Myeloperoxidase Ab <1.0 AI (<1.0)
[2024-05-16 15:02] LABS: Anti-Nuclear Antibody Screen Positive (Negative)
[2024-05-16 15:30] LABS: Anti-Nuclear Antibody Pattern REPORT; Anti-Nuclear Antibody Titer 1:40 (Negative)
== END 2024-05-14 14:44 | disposition home or self-care (01) | DRG 280 ==
LOC: ER 09:39 → ERHOLD 13:38 → 2ND 14:21 → OBSVTOIN 05-07 11:25
PROVIDERS: ADMIT Hospitalist; ATTEND Hospitalist
PROC: 5A09557 Assistance with Respiratory Ventilation, Greater than 96 Consecutive Hours, Continuous Positive Airway Pressure (ICD-10-PCS; 2024-05-08)
PROC: 4A033R1 Measurement of Arterial Saturation, Peripheral, Percutaneous Approach (ICD-10-PCS; principal; 2024-05-10)
PROC: 4A023N7 Measurement of Cardiac Sampling and Pressure, Left Heart, Percutaneous Approach (ICD-10-PCS; 2024-05-12)
PROC: B2111ZZ Fluoroscopy of Multiple Coronary Arteries using Low Osmolar Contrast (ICD-10-PCS; 2024-05-12)
DX: I13.0 Hypertensive heart and chronic kidney disease with heart failure and stage 1 through stage 4 chronic kidney disease, or unspecified chronic kidney disease (principal); I50.43 Acute on chronic combined systolic (congestive) and diastolic (congestive) heart failure; I21.A1 Myocardial infarction type 2; J96.01 Acute respiratory failure with hypoxia; N17.9 Acute kidney failure, unspecified; N25.81 Secondary hyperparathyroidism of renal origin; N18.30 Chronic kidney disease, stage 3 unspecified; E11.22 Type 2 diabetes mellitus with diabetic chronic kidney disease; E11.65 Type 2 diabetes mellitus with hyperglycemia; E11.40 Type 2 diabetes mellitus with diabetic neuropathy, unspecified; E78.5 Hyperlipidemia, unspecified; I87.8 Other specified disorders of veins; I87.2 Venous insufficiency (chronic) (peripheral); I27.20 Pulmonary hypertension, unspecified; I08.1 Rheumatic disorders of both mitral and tricuspid valves; I48.0 Paroxysmal atrial fibrillation; J44.9 Chronic obstructive pulmonary disease, unspecified; M89.8X9 Other specified disorders of bone, unspecified site; I25.2 Old myocardial infarction; I25.10 Atherosclerotic heart disease of native coronary artery without angina pectoris; F17.200 Nicotine dependence, unspecified, uncomplicated; R31.9 Hematuria, unspecified; Z88.0 Allergy status to penicillin; Z79.4 Long term (current) use of insulin; Z95.1 Presence of aortocoronary bypass graft; Z95.5 Presence of coronary angioplasty implant and graft; Z79.82 Long term (current) use of aspirin; Z79.01 Long term (current) use of anticoagulants; Z79.02 Long term (current) use of antithrombotics/antiplatelets; Z11.52 Encounter for screening for COVID-19; Z86.73 Personal history of transient ischemic attack (TIA), and cerebral infarction without residual deficits; Z86.711 Personal history of pulmonary embolism; Z79.899 Other long term (current) drug therapy; Z95.810 Presence of automatic (implantable) cardiac defibrillator; Z91.119 Patient's noncompliance with dietary regimen due to unspecified reason; Z91.199 Patient's noncompliance with other medical treatment and regimen due to unspecified reason
CPT/HCPCS: 0241U; 36415; 36600; 71045; 71275; 76770; 76937; 80048; 80053; 80061; 80069; 81001; 82550; 82570; 82805; 82947; 83520; 83605; 83735; 83880; 83935; 83970; 84100; 84132; 84156; 84300; 84443; 84484; 84550; 85025; 85610; 85730; 86021; 86038; 86334; 86430; 86803; 87040; 93005; 93306; 94640; 94660; 96372; 96374; 99285; C1893; J0360; J1644; J1940; J2001; J2250; J3010; J3535; J7030; J7040; J7613; J7644; P9047; Q9967

== ENCOUNTER 2024-06-23 16:08 | Inpatient (IN) | payer OTHER ==
[2024-06-23 17:02] LABS: Absolute Eosinophils 0.1 K/uL (0-0.5); Absolute Lymphocytes (CBC) 0.8 K/uL (0.7-4.9); Absolute Monocytes 0.8 K/uL (0.1-1.3); Absolute Neutrophil 6.5 K/uL (1.8-8.0); Basophils % 0.6 % (0-1.3); Hematocrit 40.4 % (39.6-49.0); Hemoglobin 12.9 g/dL (13.6-17.9); Lymphocytes % 10.2 % (15.3-44.8); MCH 28.3 pg (27.0-35.0); MCV 88.2 fL (80-100); MPV 8.3 fL (7.6-11.3); Monocytes % 9.9 % (3.3-12.3); Neutrophils % 78.3 % (41.7-73.7); Nucleated Red Blood Cells % 0.2 % (0-0); Platelets 195 thou/uL (152-406); RBC Red Blood Cell Count 4.58 M/uL (4.33-5.43); Red Cell Distribution Width 17.2 % (12.1-15.2)
[2024-06-23 17:19] LABS: PT Prothrombin Time 15.1 SECONDS (9.4-12.5); Protime INR 1.36
[2024-06-23 17:21] LABS: Albumin 2.9 g/dL (3.4-5.0); Albumin/Globulin Ratio 0.6 (1.1-1.8); Anion Gap 8.6 mEq/L (5.0-15.0); Bilirubin Direct 0.6 mg/dL (0-0.2); Bilirubin Indirect, Calculated 1.1 mg/dL (0.2-0.8); Bilirubin Total 1.7 mg/dL (0.2-1.0); Globulin 4.5 g/dL (2.3-3.5); Potassium 3.6 mEq/L (3.5-5.1); Protein, Total 7.4 g/dL (6.4-8.2)
--- NOTE | 2024-06-23 17:32 | RAD REPORT ---
EXAM DESCRIPTION: [facility] Single View06/23/2024 5:22 pm CLINICAL HISTORY: Shortness of breath COMPARISON: May 2024 FINDINGS: Mild bilateral pulmonary opacities Heart is moderately enlarged Postsurgical changes involve the chest. Pacemaker leads in place IMPRESSION: These findings probably indicate mild CHF
[2024-06-23 17:43] LABS: SARS-CoV-2 Antigen CONTROL BLUE LINE VIS/BG OK; SARS-CoV-2 Antigen Rapid Res Negative (Negative)
--- NOTE | 2024-06-23 17:46 | ER ---
Nurse's Notes [facility] Name: Ector Trivedi Jr Age: 63 yrs Sex: Male : 1960 Arrival Date: 06/23/2024 Time: 16:08 Bed 15 Private MD: Diagnosis: Unspecified combined systolic (congestive) and diastolic (congestive) heart failure;Acute pulmonary edema;Dyspnea, unspecified Presentation: 06/23 16:11 Chief complaint: EMS states: SOB, EMS PICKED PT UP AT CARDIOLOGY OFFICE. PT RECENT db DIAGNOSIS OF PNEUMONIA. TODAY BREATHING IS WORSE. TOLD HAS FLUID OVERLOAD. NOTED BILATERAL LEG SWELLING, EDEMA AND REDNESS. Coronavirus screen: Client denies travel out of the [place] in the last 14 days. At this time, the client does not indicate any symptoms associated with coronavirus-19. Ebola Screen: Patient negative for fever greater than or equal to 101.5 degrees Fahrenheit, and additional compatible Ebola Virus Disease symptoms Patient denies exposure to infectious person. Patient denies travel to an Ebola-affected area in the 21 days before illness onset. No symptoms or risks identified at this time. Initial Sepsis Screen: Does the patient meet any 2 criteria? RR > 20 per min. No. Patient's initial sepsis screen is negative. Does the patient have a suspected source of infection? No. Patient's initial sepsis screen is negative. Risk Assessment: Do you want to hurt yourself or someone else? Patient reports no desire to harm self or others. Onset of symptoms was June 23, 2024. 16:11 Method Of Arrival: EMS: [facility] db 16:11 Acuity: CHRIS 2 db Triage Assessment: 16:11 General: Appears in no apparent distress. comfortable, Behavior is calm, cooperative. db Pain: Denies pain. Neuro: Level of Consciousness is awake, alert, obeys commands, Oriented to person, place, time, situation. Cardiovascular: No deficits noted. Respiratory: Reports shortness of breath labored breathing Airway is patent Respiratory effort is even, labored, Respiratory pattern is regular, symmetrical, Onset: The symptoms/episode began/occurred gradually, the patient has moderate shortness of breath. Historical: - Allergies: 16:11 PENICILLINS; db - Home Meds: 20:37 insulin glargine 100 unit/mL Sub-Q solution 60 units 2 times per day [Active]; tl4 gabapentin 300 mg oral capsule 1 cap 2 times per day [Active]; Eliquis 2.5 mg oral tablet 1 tab 2 times per day [Active]; tramadol 50 mg Oral tablet 1 tab every 6 hours [Active]; ondansetron 4 mg oral Tablet,disintegrating 1 tabs every 6 hours [Active]; sotalol 80 mg Oral tablet 1 tab 2 times per day [Active]; aspirin 81 mg Oral tablet,chewable daily [Active]; furosemide 80 mg Oral tablet 2 times per day [Active]; Ozempic 1 mg/dose (4 mg/3 mL) subcutaneous Pen Injector [Active]; sertraline 100 mg oral tablet daily [Active]; atorvastatin 80 mg oral tablet daily [Active]; - PMHx: 16:11 Cerebrovascular accident; diabetes mellitus; Hypertensive disorder; Myocardial db infarction; - PSHx: 16:11 Coronary artery bypass graft; pacemaker; Stented artery; db - Immunization history:: Adult Immunizations unknown. - Infectious Disease History:: Denies. - Family history:: not pertinent. - Social history:: Smoking status: Patient reports the use of cigarette tobacco products, denies chronic smoking, but will smoke occasionally, TRYING TO QUIT X 2 WEEKS. - Hospitalizations: : No recent hospitalization is reported. Screenin:50 [facility] ED Fall Risk Assessment (Adult) History of falling in the last 3 months, db including since admission No falls in past 3 months (0 pts) Confusion or Disorientation No (0 pts) Intoxicated or Sedated No (0 pts) Impaired Gait No (0 pts) Mobility Assist Device Used No (0 pt) Altered Elimination No (0 pt) Score/Fall Risk Level 0 - 2 = Low Risk Oriented to surroundings, Maintained a safe environment. Abuse screen: Denies threats or abuse. Denies injuries from another. Nutritional screening: No deficits noted. Tuberculosis screening: No symptoms or risk factors identified. Assessment: 16:38 Reassessment: Patient appears in no apparent distress at this time. Patient and/or db family updated on plan of care and expected duration. Pain level reassessed. Patient is alert, oriented x 3, equal unlabored respirations, skin warm/dry/pink. SEE TRIAGE FOR INITIAL ASSESSMENT. 18:18 Reassessment: Patient appears in no apparent distress at this time. Patient and/or db family updated on plan of care and expected duration. Pain level reassessed. Patient is alert, oriented x 3, equal unlabored respirations, skin warm/dry/pink. Reassessment: Patient states feeling better. Patient states symptoms have improved. General: Appears in no apparent distress. comfortable, Behavior is calm, cooperative. Neuro: Level of Consciousness is awake, alert, obeys commands, Oriented to person, place, time, situation. Cardiovascular: Reports shortness of breath, Rhythm is regular. Respiratory: Airway is patent Respiratory effort is even, unlabored, Respiratory pattern is regular, symmetrical, Breath sounds are clear. 18:39 Reassessment: Patient appears in no apparent distress at this time. Patient and/or db family updated on plan of care and expected duration. Pain level reassessed. Patient is alert, oriented x 3, equal unlabored respirations, skin warm/dry/pink. Vital Signs: 16:11 BP 152 / 99; Pulse 98; Resp 36; Temp 98; Pulse Ox 98% on 2 lpm NC; Weight 99.79 kg; db Height 5 ft. 7 in. ; 17:00 BP 165 / 113; Pulse 98; Resp 20; Pulse Ox 100% on 2 lpm NC; db 18:00 BP 157 / 111; Pulse 98; Resp 22; Pulse Ox 100% on 2 lpm NC; db 18:30 BP 158 / 105; Pulse 95; Resp 25; Pulse Ox 100% on 2 lpm NC; db 19:08 BP 161 / 118; Pulse 96; Resp 19; Pulse Ox 100% on R/A; tl4 20:00 BP 169 / 123; Pulse 98; Resp 24; Pulse Ox 100% on R/A; tl4 20:33 BP 144 / 98; Pulse 98; Resp 20; Temp 98.5; Pulse Ox 99% on 2 lpm NC; tl4 16:11 Body Mass Index 34.46 (99.79 kg, 170.18 cm) db ED Course: 16:11 Patient arrived in ED. db 16:11 Eliud Lambert MD is Attending Physician. rn 16:11 Arm band placed on Patient placed in an exam room. db 16:23 EKG done, reviewed by Eliud Lambert MD. db 16:34 Gregoria Johnston, ZINA is Primary Nurse. db 16:37 Triage completed. db 16:50 Inserted saline lock: 20 gauge in right antecubital area, using aseptic technique. db Blood collected. Flushed with 10 mL NS. 17:23 XRAY Chest (1 view) In Process Unspecified. EDMS 17:46 Crow Murray MD is Hospitalizing Provider. rn 18:18 Patient has correct armband on for positive identification. Bed in low position. Call db light in reach. Side rails up X 1. Client placed on continuous cardiac and pulse oximetry monitoring. NIBP monitoring applied. shingle packer on. Pulse ox on. NIBP on. Pillow given. 19:09 Report given to ZINA ALDANA. db 20:17 No provider procedures requiring assistance completed. Patient admitted, IV remains in tl4 place. 20:17 Provided Education on: call nabil, ed process. tl4 Administered Medications: 18:39 Drug: Furosemide IVP 40 mg IVP once; give over 2 minutes Route: IVP; Site: right db antecubital; Medication: 16:50 VIS not applicable for this client. db Outcome: 17:46 Decision to Hospitalize by Provider. rn 21:37 Patient left the ED. sb4 Signatures: Dispatcher [employer] EDMS Eliud Lambert MD MD rn Benton, Danielle, RN RN db Brown, Sophia, PA-C PA-C sb4 Logdajan, ZINA Aldana RN tl4 Corrections: (The following items were deleted from the chart) 20:18 20:17 PMHx: Cerebrovascular accident; tl4 tl4 20:18 20:17 PMHx: Cerebrovascular accident; tl4 tl4 20:18 20:17 PMHx: Cerebrovascular accident; tl4 tl4 20:18 20:17 PMHx: Myocardial infarction; tl4 tl4 20:18 20:17 PMHx: Myocardial infarction; tl4 tl4
--- NOTE | 2024-06-23 17:46 | EDPHYS ---
Physician Documentation [facility] Name: Ector Trivedi Jr Age: 63 yrs Sex: Male : 1960 Arrival Date: 06/23/2024 Time: 16:08 Bed 15 Private MD: ED Physician Eliud Lambert HPI: 06/23 16:30 This 63 yrs old Male presents to ER via Unassigned with complaints of Shortness Of rn Breath. 16:30 The patient has shortness of breath at rest, with light activity. Onset: The rn symptoms/episode began/occurred 3 week(s) ago. Duration: The symptoms are continuous. The patient's shortness of breath is aggravated by exertion, light activity. Severity of symptoms: At their worst the symptoms were moderate in the emergency department the symptoms are unchanged. The patient has experienced similar episodes in the past. Patient sent by Dr. Devlin for suspected volume overload, has history of COPD and CHF, has not been taking his Lasix as prescribed lately. Reports progressive dyspnea that is worse over the last 3 weeks. No fever. No productive cough. No hemoptysis. No abdominal pain. Reports fatigue and malaise and cannot do anything without being winded.. Historical: - Allergies: 16:11 PENICILLINS; db - Home Meds: 20:37 insulin glargine 100 unit/mL Sub-Q solution 60 units 2 times per day [Active]; tl4 gabapentin 300 mg oral capsule 1 cap 2 times per day [Active]; Eliquis 2.5 mg oral tablet 1 tab 2 times per day [Active]; tramadol 50 mg Oral tablet 1 tab every 6 hours [Active]; ondansetron 4 mg oral Tablet,disintegrating 1 tabs every 6 hours [Active]; sotalol 80 mg Oral tablet 1 tab 2 times per day [Active]; aspirin 81 mg Oral tablet,chewable daily [Active]; furosemide 80 mg Oral tablet 2 times per day [Active]; Ozempic 1 mg/dose (4 mg/3 mL) subcutaneous Pen Injector [Active]; sertraline 100 mg oral tablet daily [Active]; atorvastatin 80 mg oral tablet daily [Active]; - PMHx: 16:11 Cerebrovascular accident; diabetes mellitus; Hypertensive disorder; Myocardial db infarction; - PSHx: 16:11 Coronary artery bypass graft; pacemaker; Stented artery; db - Immunization history:: Adult Immunizations unknown. - Infectious Disease History:: Denies. - Family history:: not pertinent. - Social history:: Smoking status: Patient reports the use of cigarette tobacco products, denies chronic smoking, but will smoke occasionally, TRYING TO QUIT X 2 WEEKS. - Hospitalizations: : No recent hospitalization is reported. ROS: 16:30 Constitutional: Negative for fever, chills, and weight loss, Cardiovascular: Positive rn for lower extremity edema Respiratory: Positive for shortness of breath Abdomen/GI: Negative for abdominal pain, nausea, vomiting, diarrhea, and constipation, MS/Extremity: Negative for injury and deformity, Skin: Negative for injury, rash, and discoloration, Neuro: Positive for generalized weakness Exam: 16:30 Constitutional: This is a well developed, well nourished patient who is awake, alert, rn moderate tachypnea, 4-5 word sentences Head/Face: Normocephalic, atraumatic. ENT: No stridor Cardiovascular: Regular rate, irregular rhythm. Respiratory: Moderate tachypnea, crackles at bases, no retractions Abdomen/GI: Soft, nontender MS/ Extremity: Pulses equal, no cyanosis. Neuro: Awake and alert, GCS 15 17:50 ECG was reviewed by the Attending Physician. rn Vital Signs: 16:11 BP 152 / 99; Pulse 98; Resp 36; Temp 98; Pulse Ox 98% on 2 lpm NC; Weight 99.79 kg; db Height 5 ft. 7 in. ; 17:00 BP 165 / 113; Pulse 98; Resp 20; Pulse Ox 100% on 2 lpm NC; db 18:00 BP 157 / 111; Pulse 98; Resp 22; Pulse Ox 100% on 2 lpm NC; db 18:30 BP 158 / 105; Pulse 95; Resp 25; Pulse Ox 100% on 2 lpm NC; db 19:08 BP 161 / 118; Pulse 96; Resp 19; Pulse Ox 100% on R/A; tl4 20:00 BP 169 / 123; Pulse 98; Resp 24; Pulse Ox 100% on R/A; tl4 20:33 BP 144 / 98; Pulse 98; Resp 20; Temp 98.5; Pulse Ox 99% on 2 lpm NC; tl4 16:11 Body Mass Index 34.46 (99.79 kg, 170.18 cm) db MDM: 16:12 Patient medically screened. rn 17:45 Differential diagnosis: CHF exacerbation, Myocardial Infarction Pneumothorax pulmonary rn edema. Data reviewed: vital signs, nurses notes, lab test result(s), EKG, radiologic studies, plain films, and as a result, I will admit patient. Consideration of Admission/Observation Patient was admitted/placed on observation. Escalation of care including admission/observation considered. Management of patient was discussed with the following: Circuit Clerk: Case discussed with maria l Redmond patient admitted for diuresis. Care significantly affected by the following chronic conditions: Hypertension, Congestive Heart Failure. Counseling: I had a detailed discussion with the patient and/or guardian regarding the historical points, exam findings, and any diagnostic results supporting the discharge/admit diagnosis, lab results, radiology results, the need for further work-up and treatment in the hospital. Response to treatment: the patient's symptoms have mildly improved after treatment. 06/23 16:19 Order name: Basic Metabolic Panel; Complete Time: 17:44 rn 06/23 16:19 Order name: CBC with Diff; Complete Time: 17:11 rn 12 16:19 Order name: LFT's; Complete Time: 17:44 rn 12 16:19 Order name: NT PRO-BNP; Complete Time: 17:44 rn 0812 16:19 Order name: PT-INR; Complete Time: 17:35 rn 12 16:19 Order name: Troponin HS; Complete Time: 17:44 rn 0812 16:29 Order name: SARS RAPID; Complete Time: 17:44 rn 12 16:19 Order name: XRAY Chest (1 view); Complete Time: 17:35 rn 12 18:59 Order name: CONS Physician Consult EDMS 08 16:19 Order name: Cardiac monitoring; Complete Time: 16:34 rn 12 16:19 Order name: EKG - Nurse/Tech; Complete Time: 16:34 rn 12 16:19 Order name: IV Saline Lock; Complete Time: 18:17 rn 0812 16:19 Order name: Labs collected and sent; Complete Time: 18:17 rn 0812 16:19 Order name: O2 Per Protocol; Complete Time: 16:34 rn 06/23 16:19 Order name: O2 Sat Monitoring; Complete Time: 16:34 rn EC:50 Rate is 95 beats/min. Rhythm is regular. Right axis deviation noted. QRS is positive in rn lead aVF and negative in lead I. QRS interval is normal. QT interval is normal. No Q waves. T waves are Inverted in leads V5, V6. No ST changes noted. Clinical impression: NSR w/ Non-specific ST/T Changes. Interpreted by me. Reviewed by me. Administered Medications: 18:39 Drug: Furosemide IVP 40 mg IVP once; give over 2 minutes Route: IVP; Site: right antecubital; Disposition Summary: 06/23/24 17:46 Hospitalization Ordered Notes: Hospitalization Status: Inpatient Admission rn Provider: Crow Murray rn Location: Telemetry/MedSurg (Inpatient) rn Condition: Stable rn Problem: an acute exacerbation rn Symptoms: have improved rn Bed/Room Type: Standard rn Room Assignment: 408(06/23/24 19:31) kb3 Diagnosis - Unspecified combined systolic (congestive) and diastolic (congestive) heart failure rn - Acute pulmonary edema rn - Dyspnea, unspecified rn Forms: - Medication Reconciliation Form rn - SBAR form rn - Leadership Thank You Letter rn Signatures: Dispatcher [employer] EDMS Eliud Lambert MD MD rn Bradberry, Kelly RN RN kb3 Gregoria Johnston, RN RN Jovan Hines RN RN tl4 Corrections: (The following items were deleted from the chart) 16:20 16:20 BASIC METABOLIC PANEL+C.LAB.BRZ ordered. EDSC EDSC 16:20 16:20 CBC+H.LAB.BRZ ordered. EDSC EDSC 16:20 16:20 HEPATIC FUNCTION+C.LAB.BRZ ordered. EDSC EDSC 16:20 16:20 PROBNP+C.LAB.BRZ ordered. EDSC EDSC 16:20 16:20 PROTIME (+INR)+COAG.LAB.BRZ ordered. EDSC EDSC 16:20 16:20 Troponin High Sensitivity+C.LAB.BRZ ordered. EDSC EDSC 16:20 16:20 Chest Single View+RAD.RAD.BRZ ordered. EDSC EDMS 17:20 17:11 Chest Single View+RAD.RAD.BRZ ordered. [facility] EDSC 19:31 17:46 rn kb3 20:18 20:17 PMHx: Cerebrovascular accident; tl4 tl4 20:18 20:17 PMHx: Cerebrovascular accident; tl4 tl4 20:18 20:17 PMHx: Cerebrovascular accident; tl4 tl4 20:18 20:17 PMHx: Myocardial infarction; tl4 tl4 20:18 20:17 PMHx: Myocardial infarction; tl4 tl4
[2024-06-23] MEDS ORDERED: FUROSEMIDE 40 MG/4 ML VIAL ONE (18:35)
--- NOTE | 2024-06-23 18:54 | P.HP ---
Certification for Inpatient Patient admitted to: Inpatient With expected LOS: <2 Midnights Practitioner: I am a practitioner with admitting privileges, knowledge of patient current condition, hospital course, and medical plan of care. Services: Services provided to patient in accordance with Admission requirements found in Title 42 Section 412.3 of the Code of Federal Regulations Patient History Date of Service: 06/24/24 Reason for admission: Congestive heart failure History of Present Illness: s 63 yrs old Male with a past medical history of COPD, TB, cerebrovascular accid ent; insulin-dependent diabetes mellitus; congestive heart failure reduced EF, hypertensive disorder; Myocardial infarction (CABG, PCI); pacemaker presents to the emergency room with shortness of breath. He reports shortness of breath started about 3 weeks ago is getting progressively worse. He reports shortness of breath is worse with exertion, worse while laying flat. he reports seeing Dr. Devlin for cardiology. He reports not taking his Lasix as prescribed. He denies fever, nausea vomiting diarrhea. Plan to admit for acute on chronic heart failure, pulmonary edema, fluid volume overload., On telemetry with cardiology to evaluate, ER course Rate is 95 beats/min. Rhythm is regular. Right axis deviation noted. QRS is positive in lead aVF and negative in lead I. QRS interval is normal. QT interval is normal. No Q waves. T waves are Inverted in leads V5, V6. No ST changes noted. Clinical impression: NSR w/ Non-specific ST/T Changes, he was treated with Lasix IV x 1, Allergies Penicillins Allergy (Verified 09/21/21 08:21) Rash Home Medications: Aspirin [Aspirin EC 81 MG] 81 mg PO DAILY 08/12/18 Atorvastatin Calcium 2 tab PO BEDTIME 08/12/18 Sertraline [Zoloft*] 2 tab PO DAILY 08/12/18 Insulin Glargine,Hum.rec.anlog [Lantus] 60 unit SQ BID 06/21/21 Apixaban [Eliquis *] 2.5 mg PO BID 05/05/24 Semaglutide [Ozempic] 1 mg SQ EVERY 7TH DAY 05/05/24 Tramadol HCl [Ultram] 50 mg PO TID PRN 05/05/24 Furosemide 80 mg PO BID 30 Days #60 tab 05/14/24 Sotalol HCl [Betapace*] 80 mg PO BID 30 Days #60 tab 05/14/24 Gabapentin [Neurontin*] 300 mg PO BID 06/24/24 - Past Medical/Surgical History Diabetic: Yes -: Tuberculosis -: CAD -: CHF -: HTN -: DM -: Acute Chronic HFREF -: VT -: Psoriasis -: 2 stents placement -: ICD -: I/D left foot -: CABG - Family History Father -: Heart disease, Hypertension, Lung disease, Stroke, Seizures Mother -: Diabetes, Kidney disease Brother -: Diabetes, Kidney disease Sister -: Hypertension, Diabetes - Social History Alcohol use: No CD- Drugs: No Caffeine use: Yes Review of Systems Per HPI Physical Examination - Physical Exam General: Alert, Oriented x3, Mild distress HEENT: Atraumatic, Normocephalic Neck: 2+ carotid pulse no bruit, JVD not distended Respiratory: Diminished, Crackles/rales, Other (Orthopnea) Cardiovascular: Normal pulses, Regular rate/rhythm, Edema Gastrointestinal: Normal bowel sounds, Soft and benign, Other (Obesity) Musculoskeletal: No swelling, No contractures Integumentary: No significant lesion, Other (Bilateral lower extremity venous stasis,) Neurological: Normal strength at 5/5 x4 extr, Sensation intact, Cranial nerves 3-12 intact - Studies Laboratory Data (last 24 hrs) 06/23/24 06/23/24 06/23/24 16:53 16:53 16:53 WBC 8.20 Hgb 12.9 L Hct 40.4 Plt Count 195 PT 15.1 H INR 1.36 Sodium 139 Potassium 3.6 BUN 32 H Creatinine 1.93 H Glucose 237 H Total Bilirubin 1.7 H AST 39 H ALT 26 Alkaline Phosphatase 118 H Assessment and Plan - Plan Assessment plan Acute on chronic systolic heart failure NSTEMI Acute hypoxic respiratory failure secondary to decompensated heart failure/pulmonary edema History of atrial fibrillation HX Myocardial infarction; Medication noncompliance Cardiology consult, telemetry, Diuretics, I&O, daily weight Low-salt diet, fluid restriction O2 2 L keep sats greater than 92% presents to the emergency room with shortness of breath. He reports shortness of breath started about 3 weeks ago is getting progressively worse. He reports shortness of breath is worse with exertion, worse while laying flat. he reports seeing Dr. Devlin for cardiology. He reports not taking his Lasix as prescribed. He denies fever, nausea vomiting diarrhea. Plan to admit for acute on chronic heart failure, pulmonary edema, fluid volume overload., On telemetry with cardiology to evaluate, ER course Rate is 95 beats/min. Rhythm is regular. Right axis deviation noted. QRS is positive in lead aVF and negative in lead I. QRS interval is normal. QT interval is normal. No Q waves. T waves are Inverted in leads V5, V6. No ST changes noted. Clinical impression: NSR w/ Non-specific ST/T Changes, he was treated with Lasix IV x 1, Acute kidney likely secondary from diuretic use Nephrology COPD cerebrovascular accident Resume appropriate home meds insulin-dependent diabetes mellitus Accu-Cheks, sliding scale Full code DVT Eliquis Diet cardiac Disposition Home independent prior Discharge Plan: Home - Advance Directives Does patient have a Living Will: No Does patient have a Durable POA for Healthcare: No - Code Status/Comfort Care Code Status: Full Code Critical Care: No Time Spent Managing Pts Care (In Minutes): 55
[2024-06-23] MEDS ORDERED: ONDANSETRON 4 MG/2 ML VIAL IV PRN (21:42)
[2024-06-23] MEDS ORDERED: ACETAMINOPHEN 500 MG TAB PO PRN (21:42)
[2024-06-23] MEDS ORDERED: ALPRAZOLAM 0.25 MG TABLET PO PRN (21:42)
[2024-06-23] MEDS: FUROSEMIDE 40 MG/4 ML VIAL IV SCH (22:07)
[2024-06-24 05:48] LABS: Absolute Basophils 0.1 K/uL (0-0.5); Absolute Eosinophils 0.2 K/uL (0-0.5); Absolute Monocytes 0.8 K/uL (0.1-1.3); Absolute Neutrophil 5.9 K/uL (1.8-8.0); Basophils % 0.7 % (0-1.3); Eosinophils % 2.5 % (0-4.4); Hematocrit 38.4 % (39.6-49.0); Hemoglobin 12.6 g/dL (13.6-17.9); Lymphocytes % 12.5 % (15.3-44.8); MCHC 32.9 g/dL (32.0-36.0); MCV 88.2 fL (80-100); MPV 9.1 fL (7.6-11.3); Monocytes % 10.3 % (3.3-12.3); Nucleated Red Blood Cells % 0.2 % (0-0); Platelets 187 thou/uL (152-406); RBC Red Blood Cell Count 4.35 M/uL (4.33-5.43); Red Cell Distribution Width 16.9 % (12.1-15.2)
[2024-06-24 06:26] LABS: Anion Gap 5.1 mEq/L (5.0-15.0); Magnesium 1.9 mg/dL (1.6-2.4); Potassium 3.1 mEq/L (3.5-5.1); Troponin High Sensitivity 54.5 pg/mL (<58.9)
[2024-06-24] MEDS: GABAPENTIN 100 MG CAP PO SCH (09:21)
[2024-06-24] MEDS: APIXABAN 2.5 MG TABLET PO SCH (09:21)
[2024-06-24] MEDS: SOTALOL HCL 80 MG TAB PO SCH (09:21)
[2024-06-24] MEDS: ASPIRIN EC 81 MG TAB PO SCH (09:21)
[2024-06-24] MEDS ORDERED: GLUCAGON 1 MG/VIAL IM PRN (10:17)
[2024-06-24] MEDS ORDERED: D50W 25 GM/50 ML SYRINGE IV PRN (10:17)
--- NOTE | 2024-06-24 10:18 | P.PN ---
Date of Service: 06/24/24 Subjective: Still feeling short of breath, mildly improved from last night No acute events overnight Concerned with his diet orders, insulin ROS: 10 point ROS as noted above, otherwise negative Physical exam GEN: Alert, oriented, NAD HEENT: Normal conjunctiva, sclera anicteric CV: Regular rate and rhythm, 2+ edema bilateral lower extremities Pulm: Nonlabored respirations on nasal cannula, bilateral crackles on auscultation ABD: Soft, nontender, nondistended MSK: No joint tenderness Integumentary: No rashes Neuro: Normal speech, normal affect Vitals reviewed Problem List Acute on chronic systolic heart failure NSTEMI-suspect type II/demand ischemia Acute hypoxic respiratory failure secondary to decompensated heart failure/pulmonary edema History of atrial fibrillation on chronic anticoagulation HX Myocardial infarction; Medication noncompliance Cardiology consult, telemetry, Continue with IV diuretics, I&O, daily weight Low-salt diet, fluid restriction O2 2 L keep sats greater than 92% Repeat echocardiogram Wean O2 as tolerated Acute kidney likely secondary from cardiorenal syndrome Nephrology consulted Continue IV diuresis, improving COPD cerebrovascular accident Resume appropriate home meds insulin-dependent diabetes mellitus Continue long-acting and short acting insulin Full code DVT Eliquis Diet cardiac/ADA Time Spent Managing Pts Care (In Minutes): 35 <Mono Tobin - Last Filed: 06/24/24 10:18> Patient seen and examined, plan of care discussed with Mono Tobin He continues to be short of breath at rest. He reports noncompliance with cardiology follow-up and sometimes his cardiac medications. Patient with severe LV dysfunction, recent echo reported EF of 25 to 30%. Continue diuresis with IV Lasix. Monitor renal function given concomitant acute kidney injury. Oxygen supplementation as needed. Monitor renal function. Nephrology and cardiology consulted <regi horton - Last Filed: 06/24/24 16:29>
[2024-06-24] MEDS ORDERED: D10W 125 ML IV PRN (10:30)
[2024-06-24] MEDS: INSULIN LISPRO 100 UNIT/ML SQ SCH (12:00)
[2024-06-24] MEDS: INSULIN GLARGINE 100 UNIT/ML SQ SCH (16:47)
--- NOTE | 2024-06-24 16:57 | CON ---
Date of Consultation: 06/24/2024 Reason For Consultation: Elevated BUN and creatinine, fluid management. History Of Present Illness: This is a pleasant 63-year-old gentleman with significant past medical h istory of COPD, interstitial lung disease, TB, CVA, diabetes complicated with neuropathy, CAD complic ated with congestive heart failure, status post NH, status post CABG and PTCA, status post ICD. The patient came to the hospital, referred by Cardiology with CHF exacerbation. The patient was started on diuresis. The patient denied taking any nonsteroidal. Apparently, his medication in the outpatie nt includes Lasix. No recent exposure to contrast. Past Medical History: Includes: 1.CAD status post CABG, status post PCI, status post ICD, complicated with congestive heart failure. 2.Hypertension. 3.Diabetes, complicated with neuropathy. 4.Psoriasis. Past Surgical History: Include: 1.PTCA. 2.ICD. 3.CABG. Family History: Positive for diabetes, hypertension, and CAD. Social History: Denied smoking. Denied drinking. Denied drugs abuse. Allergies: TO PENICILLIN. Review of Systems: Head and Neck: No red eye. No ear pain. GI: No nausea. No vomiting. : No polyuria. No dysuria. No hematuria. SAFETY INTERN: Not applicable. Respiratory: Has shortness of breath. Cardiovascular: Has orthopnea. Endocrine: No polydipsia. Skin: No rash. Neuro: Has neuropathy. Musculoskeletal: Generalized weakness. Physical Examination: General: When I saw the patient, the patient was awake. Vital Signs: Blood pressure of 162/104, pulse of 94, afebrile. Saturation 97% on 2 L. Chest: Crackles, bilateral. Heart: S1, S2. Systolic murmur. Abdomen: Soft, nontender. Extremities: Trace edema. Neurologic: Alert. No focality. Laboratory Data: The patient's chest x-ray, cardiomegaly with congestion. WBC 8, hemoglobin 12.6. Sodium 139, potassium 3.6, bicarb 30, BUN 32, creatinine 1.9, GFR 39, calcium 9. BNP 8464. Today, s odium 138, potassium 3.1, bicarb 32, BUN 31, creatinine down to 1.6, GFR 48, magnesium 1.9. BNP 7000 . Current Medications: The patient on include Lasix 40 b.i.d., Tylenol, aspirin, Eliquis, Neurontin. Sliding scale insulin, Lipitor. Assessment And Plan: 1.Acute kidney injury on chronic kidney disease. Reviewing the record for the patient, patient's ba seline creatinine 2.1 with GFR of 35. I am going to continue to diurese the patient to establish bet ter volume control and we will monitor. 2.Hypertension. Currently, blood pressure very well controlled. We will utilize blood pressure for more diuresis. Continue current Lasix dose. 3.Congestive heart failure with exacerbation. We will optimize the fluid status with diuresis. 4.Diabetes as by primary. 5.Hypokalemia, hypomagnesemia. We will supplement. I am going to give the current ejection fraction. I add spironolactone to his regimen and we will follow up. MARISOL Voice ID: [id number] Report ID: [id number]
--- NOTE | 2024-06-24 17:11 | P.CNS ---
Date of Consult: 06/24/24 Chief Complaint: Congestive heart failure History of Present Illness: Patient with PMH of atrial fibrillation, HTN, Systolic heart failure, CAD s/p CABG and ICD placement presented with worsening SOB and lower extremity edema, denies chest pain, no palpitations, no dizzy spells, no syncope. Allergies Penicillins Allergy (Verified 09/21/21 08:21) Rash Home medications list reviewed: Yes Home Medications: Aspirin [Aspirin EC 81 MG] 81 mg PO DAILY 08/12/18 Atorvastatin Calcium 2 tab PO BEDTIME 08/12/18 Sertraline [Zoloft*] 2 tab PO DAILY 08/12/18 Insulin Glargine,Hum.rec.anlog [Lantus] 60 unit SQ BID 06/21/21 Apixaban [Eliquis *] 2.5 mg PO BID 05/05/24 Semaglutide [Ozempic] 1 mg SQ EVERY 7TH DAY 05/05/24 Tramadol HCl [Ultram] 50 mg PO TID PRN 05/05/24 Furosemide 80 mg PO BID 30 Days #60 tab 05/14/24 Sotalol HCl [Betapace*] 80 mg PO BID 30 Days #60 tab 05/14/24 Gabapentin [Neurontin*] 300 mg PO BID 06/24/24 - Past Medical/Surgical History Diabetic: Yes -: Tuberculosis -: CAD -: CHF -: HTN -: DM -: Acute Chronic HFREF -: MS -: Psoriasis -: 2 stents placement -: ICD -: I/D left foot -: CABG - Family History Father Medical History: Heart disease, Hypertension, Lung disease, Stroke, Seizures Mother Medical History: Diabetes, Kidney disease Brother Medical History: Diabetes, Kidney disease Sister Medical History: Hypertension, Diabetes - Social History Smoking Status: Current some day smoker Alcohol use: No CD- Drugs: No Caffeine use: Yes Place of Residence: Home Review of Systems 10-point ROS is otherwise unremarkable Physical Examination Temp Pulse Resp BP Pulse Ox 97.1 F 86 20 142/95 H 92 06/24/24 16:00 06/24/24 16:00 06/24/24 16:00 06/24/24 16:00 06/24/24 16:00 General: Alert, In no apparent distress HEENT: Atraumatic, PERRLA, Mucous membr. moist/pink, EOMI, Sclerae nonicteric Neck: Supple, 2+ carotid pulse no bruit, No LAD, Without JVD or thyroid abnormality Respiratory: Crackles/rales Cardiovascular: Regular rate/rhythm, Normal S1 S2, Edema Gastrointestinal: Normal bowel sounds, No tenderness Musculoskeletal: No tenderness Integumentary: No rashes Neurological: Normal gait, Normal speech, Normal tone, Normal affect Lymphatics: No axilla or inguinal lymphadenopathy Laboratory Data (last 24 hrs) 06/23/24 06/23/24 16:53 16:53 PT 15.1 H INR 1.36 Sodium 139 Potassium 3.6 BUN 32 H Creatinine 1.93 H Glucose 237 H Total Bilirubin 1.7 H AST 39 H ALT 26 Alkaline Phosphatase 118 H - Problems (1) Acute on chronic systolic (congestive) heart failure Current Visit: No Status: Acute Plan: continue Lasix 40 mg IV BID aldactone 25 mg daily monitor input and output and electrolytes (2) Atrial fibrillation Current Visit: No Status: Acute Plan: continue sotalol 80 BID continue Eliquis 2.5 bid (3) CAD (coronary artery disease) of artery bypass graft Current Visit: No Status: Acute Plan: continue ASA and lipitor
[2024-06-24] MEDS: POTASSIUM 25 MEQ EFFERV TAB PO ONE (18:53)
[2024-06-24] MEDS: ATORVASTATIN 40 MG TAB PO SCH (21:35)
[2024-06-24] MEDS: SPIRONOLACTONE 25 MG TABLET PO SCH (21:36)
[2024-06-25 07:40] LABS: Absolute Basophils 0.1 K/uL (0-0.5); Absolute Eosinophils 0.2 K/uL (0-0.5); Absolute Monocytes 0.8 K/uL (0.1-1.3); Absolute Neutrophil 4.7 K/uL (1.8-8.0); Basophils % 0.9 % (0-1.3); Eosinophils % 3.1 % (0-4.4); Hematocrit 37.7 % (39.6-49.0); Hemoglobin 12.2 g/dL (13.6-17.9); Lymphocytes % 14.3 % (15.3-44.8); MCH 28.8 pg (27.0-35.0); MCHC 32.4 g/dL (32.0-36.0); MCV 88.9 fL (80-100); MPV 8.9 fL (7.6-11.3); Monocytes % 11.5 % (3.3-12.3); Neutrophils % 70.2 % (41.7-73.7); Nucleated Red Blood Cells % 0.2 % (0-0); Platelets 179 thou/uL (152-406); RBC Red Blood Cell Count 4.24 M/uL (4.33-5.43)
[2024-06-25 07:56] LABS: Anion Gap 5.6 mEq/L (5.0-15.0); Magnesium 2.1 mg/dL (1.6-2.4); Potassium 3.6 mEq/L (3.5-5.1); Troponin High Sensitivity 47.9 pg/mL (<58.9)
[2024-06-25] MEDS: INSULIN LISPRO 100 UNIT/ML SQ SCH ×2 (08:00→17:13)
[2024-06-25] MEDS: POTASSIUM CL SA 10 MEQ TAB PO ONE (09:07)
--- NOTE | 2024-06-25 12:21 | ECHO ---
HEIGHT: 5 ft 7 in WEIGHT: 221 lb 3.2 oz DATE OF STUDY: 06/24/[address]: Jada Daniels 2-DIMENSIONAL: YES M.MODE: YES DOPPLER: YES COLOR FLOW: YES TDS: PORTABLE: YES DEFINITY: BUBBLE STUDY: DIAGNOSIS: ACUTE HEART FAILURE CARDIAC HISTORY: CATHERIZATION: YES SURGERY: YES PROSTHETIC VALVE: NO PACEMAKER: YES MEASUREMENTS (cm) DIASTOLIC (NORMALS) SYSTOLIC (NORMALS) IVSd 1.1 (0.6-1.2) LA Diam 4.1 (1.9-4.0) LVEF 22% LVIDd 5.7 (3.5-5.7) LVIDs 5.1 (2.0-3.5) %FS 10% LVPWd 1.1 (0.6-1.2) Ao Diam 2.7 (2.0-3.7) 2 DIMENSIONAL ASSESSMENT: RIGHT ATRIUM: NORMAL LEFT ATRIUM: MILD DILATED RIGHT VENTRICLE: NORMAL LEFT VENTRICLE: SEVERE DILATED TRICUSPID VALVE: MILD TRICUSPID REGURGITATION MITRAL VALVE: MILD MITRAL REGURGITATION PULMONIC VALVE: NORMAL AORTIC VALVE: NORMAL PERICARDIAL EFFUSION: NONE AORTIC ROOT: NORMAL LEFT VENTRICULAR WALL MOTION: SEVERE GLOBAL HYPOKINESIS DOPPLER/COLOR FLOW: GRADE III DIASTOLIC DYSFUNCTION COMMENTS: 1. SEVERE DILATED LEFT VENTRICLE, SEVERE LEFT VENTRICULAR SYSTOLIC DYSFUNCTION, EJECTION FRACTION 20-25%, SEVERE GLOBAL HYPOKINESIS 2. GRADE III DIASTOLIC DYSFUNCTION 3. MODERATE PULMONARY HYPERTENSION (RIGHT VENTRICULAR SYSTOLIC PRESSURE 50-55 mmHg) 4. ELEVATED FILLING PRESSURE (RIGHT ATRIUM GREATER THAN 20 mmHg) TECHNOLOGIST: THALIA AWAD
--- NOTE | 2024-06-25 14:15 | P.PN ---
Date of Service: 06/25/24 Subjective: Still feeling short of breath, especially with orthopnea No acute events overnight Improving slowly ROS: 10 point ROS as noted above, otherwise negative Physical exam GEN: Alert, oriented, NAD HEENT: Normal conjunctiva, sclera anicteric CV: Regular rate and rhythm, 1+ edema bilateral lower extremities Pulm: Nonlabored respirations on nasal cannula, bilateral crackles on auscultation ABD: Soft, nontender, nondistended MSK: No joint tenderness Integumentary: No rashes Neuro: Normal speech, normal affect Vitals reviewed Problem List Acute on chronic systolic heart failure NSTEMI-suspect type II/demand ischemia Acute hypoxic respiratory failure secondary to decompensated heart failure /pulmonary edema History of atrial fibrillation on chronic anticoagulation HX Myocardial infarction; Medication noncompliance Cardiology consult, telemetry, Continue with IV diuretics, I&O, daily weight Low-salt diet, fluid restriction O2 2 L keep sats greater than 92% Will try ambulation today, await further recs from cardiology and nephrology Acute kidney likely secondary from cardiorenal syndrome Nephrology consulted Continue IV diuresis, improving COPD cerebrovascular accident Resume appropriate home meds insulin-dependent diabetes mellitus Continue long-acting and short acting insulin Full code DVT Eliquis Diet cardiac/ADA Time Spent Managing Pts Care (In Minutes): 35
--- NOTE | 2024-06-25 16:31 | EKG ---
Test Date: 2024-06-23 Test Time: 16:20:54 Robotics Specialist: TONEY MEASUREMENT RESULTS: Intervals: Rate: 95 AL: 206 QRSD: 106 QT: 414 QTc: 520 [place]: P: 83 AL: 206 QRS: 96 T: 92 INTERPRETIVE STATEMENTS: Sinus rhythm with occasional premature ventricular complexes Rightward axis Pulmonary disease pattern Nonspecific T wave abnormality Prolonged QT Abnormal ECG Compared to ECG 05/05/2024 18:45:20 Ventricular premature complex(es) now present T-wave abnormality now present Prolonged QT interval now present Sinus tachycardia no longer present Atrial premature complex(es) no longer present Myocardial infarct finding no longer present Electronically Signed On 06-25-24 16:30:04 CDT by Jimmy Devlin
[2024-06-25] MEDS: METOLAZONE 2.5 MG TABLET PO SCH (17:19)
--- NOTE | 2024-06-25 17:21 | P.PN ---
Subjective Date of Service: 06/25/24 Chief Complaint: Congestive heart failure Subjective: No new changes, No C/O voiced, Tolerating diet, Ambulating, Improving Review of Systems 10-point ROS is otherwise unremarkable Physical Examination - Vital Signs Temperature: 97.9 F Blood Pressure: 139/86 Pulse: 79 Respirations: 18 Pulse Ox (%): 98 - Physical Exam General: Alert, In no apparent distress HEENT: Atraumatic, PERRLA, EOMI Neck: Supple, JVD not distended Respiratory: Clear to auscultation bilaterally, Normal air movement Cardiovascular: Regular rate/rhythm, Normal S1 S2 Gastrointestinal: Normal bowel sounds, No tenderness Musculoskeletal: No tenderness Integumentary: No rashes Neurological: Normal speech, Normal tone, Normal affect Lymphatics: No axilla or inguinal lymphadenopathy - Studies Medications List Reviewed: Yes Assessment And Plan - Current Problems (Diagnosis) (1) Acute on chronic systolic (congestive) heart failure Current Visit: No Status: Acute Plan: continue Lasix 40 mg IV BID aldactone 25 mg daily Metolazone 2.5 mg X1 monitor input and output and electrolytes (2) Atrial fibrillation Current Visit: No Status: Acute Plan: continue sotalol 80 BID continue Eliquis 2.5 bid (3) CAD (coronary artery disease) of artery bypass graft Current Visit: No Status: Acute Plan: continue ASA and lipitor
--- NOTE | 2024-06-26 01:30 | PN ---
Date of Progress Note: 06/25/2024 Subjective: The patient was admitted with acute kidney injury secondary to cardiorenal with anasarca . The patient was started on diuresis. The patient still has significant leg swelling. Physical Examination: Vital Signs: Blood pressure 152/73, pulse of 83. The patient had good urine output. Chest: Crackles, bilateral. Heart: S1, S2. Regular. Abdomen: Soft, nontender. Extremities: +3 edema. Neuro: Alert. No focality. Laboratory Data: Hemoglobin 12.2. Sodium 137, potassium 3.6, bicarb 30, BUN 34, creatinine 1.8, donna cium 8.5. BNP 4200. Current Medications: The patient is on include atorvastatin, sotalol, spironolactone 25 b.i.d., janis pentin, Lasix 40 b.i.d., metolazone, insulin. Assessment And Plan: 1.Acute kidney injury secondary to cardiorenal. The patient is still on the over volume side. I am going to continue to try to optimize the patient's fluid status. We will increase the Lasix. I agr ee with metolazone and we will follow up the patient. 2.Hypertension, controlled. We will utilize blood pressure for more diuresis. 3.Hypokalemia. Continue spironolactone. 4.Congestive heart failure with exacerbation. 5.Anasarca. Continue diuresis. MARISOL Voice ID: [id number] Report ID: [id number]
[2024-06-26 07:24] LABS: Albumin 2.5 g/dL (3.4-5.0); Albumin/Globulin Ratio 0.6 (1.1-1.8); Anion Gap 7.6 mEq/L (5.0-15.0); Bilirubin Total 0.8 mg/dL (0.2-1.0); Globulin 3.9 g/dL (2.3-3.5); Potassium 3.6 mEq/L (3.5-5.1); Protein, Total 6.4 g/dL (6.4-8.2)
--- NOTE | 2024-06-26 09:32 | P.PN ---
Subjective Date of Service: 06/26/24 Chief Complaint: Congestive heart failure Subjective: No new changes, No C/O voiced, Tolerating diet, Ambulating, Improving Review of Systems 10-point ROS is otherwise unremarkable Physical Examination - Vital Signs Temperature: 97.4 F Blood Pressure: 83/51 Pulse: 106 Respirations: 20 Pulse Ox (%): 92 - Physical Exam General: Alert, In no apparent distress HEENT: Atraumatic, PERRLA, EOMI Neck: Supple, JVD not distended Respiratory: Clear to auscultation bilaterally, Normal air movement Cardiovascular: Edema Gastrointestinal: Normal bowel sounds, No tenderness Musculoskeletal: No tenderness Integumentary: No rashes Neurological: Normal speech, Normal tone, Normal affect Lymphatics: No axilla or inguinal lymphadenopathy - Studies Medications List Reviewed: Yes Assessment And Plan - Current Problems (Diagnosis) (1) Acute on chronic systolic (congestive) heart failure Current Visit: No Status: Acute Plan: continue Lasix 40 mg IV TID aldactone 25 mg daily Metolazone 2.5 mg daily monitor input and output and electrolytes (2) Atrial fibrillation Current Visit: No Status: Acute Plan: continue sotalol 80 BID continue Eliquis 2.5 bid (3) CAD (coronary artery disease) of artery bypass graft Current Visit: No Status: Acute Plan: continue ASA and lipitor
[2024-06-26] MEDS: FUROSEMIDE 40 MG/4 ML VIAL IV SCH (10:13)
--- NOTE | 2024-06-26 10:19 | P.PN ---
Date of Service: 06/26/24 Subjective: Still feeling short of breath, especially with orthopnea No acute events overnight Improving slowly ROS: 10 point ROS as noted above, otherwise negative Physical exam GEN: Alert, oriented, NAD HEENT: Normal conjunctiva, sclera anicteric CV: Regular rate and rhythm, 1+ edema bilateral lower extremities Pulm: Nonlabored respirations on nasal cannula, bilateral crackles on auscultation ABD: Soft, nontender, nondistended MSK: No joint tenderness Integumentary: No rashes Neuro: Normal speech, normal affect Vitals reviewed Problem List Acute on chronic systolic heart failure NSTEMI-suspect type II/demand ischemia Acute hypoxic respiratory failure secondary to decompensated heart failure /pulmonary edema History of atrial fibrillation on chronic anticoagulation HX Myocardial infarction; Medication noncompliance Cardiology consult, telemetry, Continue with IV diuretics, I&O, daily weight Lasix increased to 40 mg IV 3 times daily, started on metolazone 2.5 mg daily Continue to monitor electrolytes, blood pressures, intake/output Low-salt diet, fluid restriction O2 2 L keep sats greater than 92% Check room air sats for home O2 Acute kidney likely secondary from cardiorenal syndrome Nephrology consulted Continue IV diuresis Monitor chemistry daily COPD cerebrovascular accident Resume appropriate home meds insulin-dependent diabetes mellitus Continue long-acting and short acting insulin Full code DVT Eliquis Diet cardiac/ADA Time Spent Managing Pts Care (In Minutes): 35
[2024-06-26] MEDS: INSULIN LISPRO 100 UNIT/ML SQ SCH (17:00)
[2024-06-26] MEDS: POTASSIUM CL SA 10 MEQ TAB PO ONE (17:33)
--- NOTE | 2024-06-26 19:14 | PN ---
Date of Progress Note: 06/26/2024 Subjective: Patient was admitted with acute kidney injury secondary to cardiorenal anasarca. The pa tient is compliant with fluid restriction. Physical Examination: Vital Signs: When I saw to the patient, blood pressure of 141/89, pulse of 82. Afebrile. Chest: Crackles bilateral. Heart: S1, S2, systolic murmur. Abdomen: Soft, nontender. EXTREMITIES: +2 edema. Neurologic: Alert. No focality. Laboratory Data: WBC 6.8, hemoglobin 12.2. Sodium 137, potassium 3.6, bicarb 30, BUN 45, creatinine 2, GFR of 35. Reviewing the record for the patient, the patient baseline creatinine around 2. Current Medications: The patient on include: 1.Aspirin. 2.Eliquis. 3.Spironolactone 25 b.i.d. 4.Sotalol. 5.Atorvastatin. 6.Lasix 40 t.i.d. 7.Metolazone 2.5. 8.Insulin. Assessment And Plan: 1.Acute kidney injury secondary to cardiorenal, still on the over volume side. Yesterday, we increa sed the Lasix. We will add metolazone and we will follow up the patient. 2.Anasarca secondary to cardiorenal as above. We will optimize the fluid status. 3.Congestive heart failure with exacerbation, advanced. We add spironolactone. We will follow up. 4.Hypokalemia. Follow up after spironolactone. MARISOL Voice ID: [id number] Report ID: [id number]
[2024-06-26 22:11] VITALS: BMI 35.4
[2024-06-26 22:44] VITALS: O2SAT 100
[2024-06-27 08:47] LABS: Hemoglobin 13.2 g/dL (13.6-17.9); MCH 29.1 pg (27.0-35.0); MCV 88.3 fL (80-100); Platelets 179 thou/uL (152-406); RBC Red Blood Cell Count 4.53 M/uL (4.33-5.43); Red Cell Distribution Width 17.4 % (12.1-15.2)
--- NOTE | 2024-06-27 08:52 | P.PN ---
Subjective Date of Service: 06/27/24 Chief Complaint: Congestive heart failure Subjective: No new changes, No C/O voiced, Tolerating diet, Ambulating, Improving Review of Systems 10-point ROS is otherwise unremarkable Physical Examination - Vital Signs Temperature: 97.9 F Blood Pressure: 133/84 Pulse: 76 Respirations: 19 Pulse Ox (%): 100 - Physical Exam General: Alert, In no apparent distress HEENT: Atraumatic, PERRLA, EOMI Neck: Supple, JVD not distended Respiratory: Clear to auscultation bilaterally, Normal air movement Cardiovascular: Regular rate/rhythm, Normal S1 S2, Edema Gastrointestinal: Normal bowel sounds, No tenderness Musculoskeletal: No tenderness Integumentary: No rashes Neurological: Normal speech, Normal tone, Normal affect Lymphatics: No axilla or inguinal lymphadenopathy - Studies Medications List Reviewed: Yes Assessment And Plan - Current Problems (Diagnosis) (1) Acute on chronic systolic (congestive) heart failure Current Visit: No Status: Acute Plan: switch lasix to 80 mg po BID aldactone 25 mg daily Metolazone 5 mg daily monitor input and output and electrolytes (2) Atrial fibrillation Current Visit: No Status: Acute Plan: continue sotalol 80 BID continue Eliquis 2.5 bid (3) CAD (coronary artery disease) of artery bypass graft Current Visit: No Status: Acute Plan: continue ASA and lipitor
[2024-06-27] MEDS ORDERED: METOLAZONE 2.5 MG TABLET PO SCH (09:00)
[2024-06-27 09:01] LABS: Albumin 2.8 g/dL (3.4-5.0); Albumin/Globulin Ratio 0.6 (1.1-1.8); Anion Gap 8.5 mEq/L (5.0-15.0); Bilirubin Total 0.9 mg/dL (0.2-1.0); Globulin 4.6 g/dL (2.3-3.5); Potassium 3.5 mEq/L (3.5-5.1); Protein, Total 7.4 g/dL (6.4-8.2)
[2024-06-27] MEDS: METOLAZONE 5 MG TABLET PO SCH (10:04)
[2024-06-27 12:30] VITALS: BP 115/80; TEMP 96.8
--- NOTE | 2024-06-27 14:59 | P.DS ---
Admission Date: 06/23/24 Discharge Date: 06/27/24 Disposition: ROUTINE DISCHARGE Discharge Condition: GOOD Reason for Admission: Congestive heart failure Consultations: CardiologyDr. Menon NephrologyDr. Ireland Brief History of Present Illness: s 63 yrs old Male with a past medical history of COPD, TB, cerebrovascular accident; insulin-dependent diabetes mellitus; congestive heart failure reduced EF, hypertensive disorder; Myocardial infarction (CABG, PCI); pacemaker presents to the emergency room with shortness of breath. He reports shortness of breath started about 3 weeks ago is getting progressively worse. He reports shortness of breath is worse with exertion, worse while laying flat. he reports seeing Dr. Devlin for cardiology. He reports not taking his Lasix as prescribed. He denies fever, nausea vomiting diarrhea. Plan to admit for acute on chronic heart failure, pulmonary edema, fluid volume overload., On telemetry with cardiology to evaluate, ER course Rate is 95 beats/min. Rhythm is regular. Right axis deviation noted. QRS is positive in lead aVF and negative in lead I. QRS interval is normal. QT interval is normal. No Q waves. T waves are Inverted in leads V5, V6. No ST changes noted. Clinical impression: NSR w/ Non-specific ST/T Changes, he was treated with Lasix IV x 1, Hospital Course: Problem List Acute on chronic systolic heart failure NSTEMI-suspect type II/demand ischemia Acute hypoxic respiratory failure secondary to decompensated heart failure/pulmonary edema History of atrial fibrillation on chronic anticoagulation HX Myocardial infarction; Medication noncompliance Acute kidney likely secondary from cardiorenal syndrome COPD cerebrovascular accident insulin-dependent diabetes mellitus Patient was admitted to the hospital for dyspnea, orthopnea, systolic CHF exacerbation. At home he typically takes Lasix 80 mg by mouth twice daily, he missed a few days and has been quite dyspneic. He was referred for evaluation from his cardiology office and admitted for diuresis. He was diuresed with IV Lasix and had very slow improvement, metolazone and spironolactone were added which helped significantly with his diuresis. He was also qualified for home oxygen which has been arranged. He will be sent prescriptions for the following new medications Spironolactone 25 mg by mouth twice daily Metolazone 2.5 mg by mouth daily He should continue all of his other home medications including the Lasix 80 mg by mouth twice daily, sotalol, Eliquis Renal function has remained stable on the above regimen for diuresis Please follow-up with your primary care doctor in 1 to 2 weeks Please follow-up with cardiologyDr. Menon in 1 week Please also follow-up with nephrologyDr. Ireland in 1 week for repeat BMP to monitor kidney function Vital Signs/Physical Exam: Temp Pulse Resp BP Pulse Ox 96.8 F 79 16 115/80 97 06/27/24 12:00 06/27/24 12:00 06/27/24 12:00 06/27/24 12:00 06/27/24 12:00 General: Alert, In no apparent distress, Oriented x3 HEENT: Atraumatic, PERRLA Neck: Supple, JVD not distended Respiratory: Normal air movement, Diminished, Other Cardiovascular: Regular rate/rhythm, Normal S1 S2 Gastrointestinal: Normal bowel sounds, No tenderness Musculoskeletal: No tenderness Integumentary: No rashes Neurological: Normal speech, Normal tone, Normal affect Laboratory Data at Discharge: WBC 8.40 thou/uL (4.3-10.9) 06/27/24 08:37 Hgb 13.2 g/dL (13.6-17.9) L 06/27/24 08:37 Hct 40.0 % (39.6-49.0) 06/27/24 08:37 Plt Count 179 thou/uL (152-406) 06/27/24 08:37 PT 15.1 SECONDS (9.4-12.5) H 06/23/24 16:53 INR 1.36 06/23/24 16:53 Sodium 138 mEq/L (136-145) 06/27/24 08:37 Potassium 3.5 mEq/L (3.5-5.1) 06/27/24 08:37 BUN 48 mg/dL (7-18) H 06/27/24 08:37 Creatinine 1.98 mg/dL (0.70-1.30) H 06/27/24 08:37 Glucose 100 mg/dL (74-106) 06/27/24 08:37 Magnesium 2.1 mg/dL (1.6-2.4) 06/25/24 07:21 Total Bilirubin 0.9 mg/dL (0.2-1.0) 06/27/24 08:37 AST 28 U/L (15-37) 06/27/24 08:37 ALT 28 U/L (16-61) 06/27/24 08:37 Alkaline Phosphatase 127 U/L (45-117) H 06/27/24 08:37 Home Medications: Aspirin [Aspirin EC 81 MG] 81 mg PO DAILY 08/12/18 Atorvastatin Calcium 2 tab PO BEDTIME 08/12/18 Sertraline [Zoloft*] 2 tab PO DAILY 08/12/18 Insulin Glargine,Hum.rec.anlog [Lantus] 60 unit SQ BID 06/21/21 Apixaban [Eliquis *] 2.5 mg PO BID 05/05/24 Semaglutide [Ozempic] 1 mg SQ EVERY 7TH DAY 05/05/24 Tramadol HCl [Ultram] 50 mg PO TID PRN 05/05/24 Furosemide 80 mg PO BID 30 Days #60 tab 05/14/24 Sotalol HCl [Betapace*] 80 mg PO BID 30 Days #60 tab 05/14/24 Gabapentin [Neurontin*] 300 mg PO BID 06/24/24 Spironolactone [Aldactone*] 25 mg PO BID #60 tab 06/27/24 metOLazone [Zaroxolyn*] 2.5 mg PO DAILY #30 tab 06/27/24 New Medications: Spironolactone [Aldactone*] 25 mg PO BID #60 tab metOLazone [Zaroxolyn*] 2.5 mg PO DAILY #30 tab Physician Discharge Instructions: Patient was admitted to the hospital for dyspnea, orthopnea, systolic CHF exacerbation. At home he typically takes Lasix 80 mg by mouth twice daily, he missed a few days and has been quite dyspneic. He was referred for evaluation from his cardiology office and admitted for diuresis. He was diuresed with IV Lasix and had very slow improvement, metolazone and spironolactone were added which helped significantly with his diuresis. He was also qualified for home oxygen which has been arranged. He will be sent prescriptions for the following new medications Spironolactone 25 mg by mouth twice daily Metolazone 2.5 mg by mouth daily He should continue all of his other home medications including the Lasix 80 mg by mouth twice daily, sotalol, Eliquis Renal function has remained stable on the above regimen for diuresis Please follow-up with your primary care doctor in 1 to 2 weeks Please follow-up with cardiologyDrRachael Menon in 1 week Please also follow-up with nephrologyDrRachael Ireland in 1 week for repeat BMP to monitor kidney function Diet: AHA Activity: Ad lilliana Followup: Ish Ireland MD [ACTIVE - CAN ADMIT] - 1 Week Donald Menon MD [ACTIVE - CAN ADMIT] - 1 Week Jacinda Alcocer FNP [Primary Care Provider] - 1-2 Weeks Time spent managing pt's care (in minutes): 35
[2024-06-27] MEDS: FUROSEMIDE 40 MG TABLET ONE (15:09)
[2024-06-27] MEDS ORDERED: FUROSEMIDE 40 MG TABLET PO SCH (21:00)
--- NOTE | 2024-06-27 23:03 | PN ---
Date of Progress Note: 06/27/2024 Chief Complaint: Acute on chronic kidney injury, cardiorenal syndrome, anasarca. Subjective: The patient is on p.o. fluid restriction and low-sodium diet. Urine output was enhanced by diuresis and anasarca is gradually improving. Review of Systems: The patient denies chest pain, palpitation, syncope. Physical Examination: Lungs: Crackles bilaterally at bases. Heart: S1, S2. 2/6 systolic murmur at left lower sternal border. Abdomen: Soft, not tender. Extremities: 2+ edema. Laboratory Data: Sodium 137, potassium 3.6, bicarbonate 30, BUN 45, creatinine 2. GFR 35. Impression And Plan: 1.Acute kidney injury secondary to cardiorenal syndrome. The patient has fluid overload. Diuretic were modified. The patient will continue metolazone, Lasix, and spironolactone. Plan is to continue diuretic and low-sodium diet for severe fluid overload with anasarca to control congestive heart mary lure. 2.Anasarca secondary to congestive heart failure and cardiorenal syndrome. Continue diuretic. Cont inue low-sodium diet and check daily weight. 3.Congestive heart failure exacerbation with systolic dysfunction. Spironolactone was added. Monit or potassium level closely. Avoid nonsteroidal anti-inflammatory medication. 4.Hypokalemia. Continue spironolactone and monitor electrolytes closely. 5.Hypertension. Blood pressure in acceptable control. Continue treatment. BLAS/MODL Voice ID: [id number] Report ID: [id number]
== END 2024-06-27 17:00 | disposition home or self-care (01) | DRG 280 ==
LOC: ER 16:08 → ERHOLD 18:55 → 4TH 19:53
PROVIDERS: ADMIT Hospitalist; ATTEND Hospitalist
DX: I13.0 Hypertensive heart and chronic kidney disease with heart failure and stage 1 through stage 4 chronic kidney disease, or unspecified chronic kidney disease (principal); I50.23 Acute on chronic systolic (congestive) heart failure; I21.A1 Myocardial infarction type 2; J96.01 Acute respiratory failure with hypoxia; N17.9 Acute kidney failure, unspecified; N18.9 Chronic kidney disease, unspecified; E66.9 Obesity, unspecified; E87.6 Hypokalemia; E83.42 Hypomagnesemia; I48.91 Unspecified atrial fibrillation; J44.9 Chronic obstructive pulmonary disease, unspecified; I25.2 Old myocardial infarction; I25.10 Atherosclerotic heart disease of native coronary artery without angina pectoris; F17.210 Nicotine dependence, cigarettes, uncomplicated; Z88.0 Allergy status to penicillin; Z79.4 Long term (current) use of insulin; Z95.1 Presence of aortocoronary bypass graft; Z11.52 Encounter for screening for COVID-19; Z79.82 Long term (current) use of aspirin; Z79.01 Long term (current) use of anticoagulants; Z68.34 Body mass index [BMI] 34.0-34.9, adult; Z86.73 Personal history of transient ischemic attack (TIA), and cerebral infarction without residual deficits; Z79.899 Other long term (current) drug therapy; Z91.148 Patient's other noncompliance with medication regimen for other reason; Z95.810 Presence of automatic (implantable) cardiac defibrillator
CPT/HCPCS: 36415; 71045; 80048; 80053; 80076; 82947; 83735; 83880; 84484; 85025; 85027; 85610; 87811; 93005; 93306; 94760; 96374; 99285; J1815; J1940

== ENCOUNTER 2024-11-10 16:09 | Emergency (ER) | payer OTHER ==
[2024-11-10 17:01] LABS: Absolute Basophils 0.1 K/uL (0-0.5); Absolute Eosinophils 0.1 K/uL (0-0.5); Absolute Lymphocytes (CBC) 1.1 K/uL (0.7-4.9); Absolute Monocytes 1.1 K/uL (0.1-1.3); Absolute Neutrophil 8.6 K/uL (1.8-8.0); Basophils % 0.5 % (0-1.3); Hemoglobin 13.7 g/dL (13.6-17.9); Lymphocytes % 10.1 % (15.3-44.8); MCH 29.6 pg (27.0-35.0); MCHC 32.7 g/dL (32.0-36.0); MCV 90.7 fL (80-100); MPV 9.5 fL (7.6-11.3); Monocytes % 10.4 % (3.3-12.3); Platelets 198 thou/uL (152-406); RBC Red Blood Cell Count 4.63 M/uL (4.33-5.43); Red Cell Distribution Width 15.2 % (12.1-15.2)
[2024-11-10 17:16] LABS: Potassium 4.5 mEq/L (3.5-5.1)
[2024-11-10 17:22] LABS: Anion Gap 18.5 mEq/L (5.0-15.0)
--- NOTE | 2024-11-10 17:22 | RAD REPORT ---
EXAMINATION: CT HEAD WITHOUT CONTRAST CT CERVICAL SPINE WITHOUT CONTRAST CLINICAL INDICATION: Male, 63 years old. TRAUMA TECHNIQUE: Axial CT images from the skull base to the vertex without intravenous contrast. Axial CT i mages through the cervical spine were obtained without intravenous contrast. Sagittal and coronal reformatted images were created from the data set. Coronal and sagittal reformatted images were creat ed from the data set. One or more of the following dose reduction techniques were used: Automated exposure control, adjustment of the mA and/or kV according to patient size, and/or iterative reconstr uction. Unless otherwise specified, incidental findings do not require dedicated imaging follow-up. [id number]. COMPARISON: 01/04/2022 FINDINGS: Head: INTRACRANIAL: No acute intracranial hemorrhage. No hydrocephalus. No mass effect or midline shift. Mo derate chronic small vessel ischemic changes.Age advanced cerebral atrophy. VASCULATURE: No visualized abnormalities in the arteries or dural venous sinuses. SCALP/SKULL: No significant soft tissue or osseous abnormalities. SINUSES: The visualized paranasal sinuses and mastoid air cells are predominantly clear. Cervical spine: ALIGNMENT: The cervical spine has normal alignment without scoliosis or spondylolisthesis. BONE: Vertebral body heights are maintained. No aggressive osseous lesions. DEGENERATIVE CHANGES: Multilevel cervical spondylosis including neural foraminal narrowing bilaterall y at C5-6. SOFT TISSUE: No significant abnormalities in the soft tissue of the neck. The visualized lung apices are clear. Carotid artery calcifications. IMPRESSION: No acute intracranial abnormality. No acute fracture or traumatic malalignment of the cervical spine.
--- NOTE | 2024-11-10 18:27 | ER ---
Nurse's Notes [facility] Name: Ector Trivedi Jr Age: 63 yrs Sex: Male : 1960 Arrival Date: 11/10/2024 Time: 16:09 Bed 14 Private MD: Diagnosis: Diabetes mellitus due to underlying condition with ketoacidosis;Dehydration;Fall on same level, unspecified;Acute kidney failure, unspecified Presentation: 11/10 16:23 Chief complaint: Patient states: Fall from standing while getting out of vehicle 3 days ss ago. Pt c/o increasing neck pain since fall. Slurred speech noted. Sent from doctor's office. Coronavirus screen: Client denies travel out of the [place] in the last 14 days. Ebola Screen: Patient denies exposure to infectious person. Patient denies travel to an Ebola-affected area in the 21 days before illness onset. Initial Sepsis Screen: Does the patient meet any 2 criteria? No. Patient's initial sepsis screen is negative. Does the patient have a suspected source of infection? No. Patient's initial sepsis screen is negative. Risk Assessment: Do you want to hurt yourself or someone else? Patient reports no desire to harm self or others. Onset of symptoms was November 07, 2024. 16:23 Method Of Arrival: EMS: [facility] 16:23 Acuity: CHRIS 2 16:38 Care prior to arrival: Medication(s) given: Normal saline infusion, 400 mL IV ss initiated. 18 GA, in the left antecubital area, Glucose check: 525. Historical: - Allergies: 16:38 PENICILLINS; ss - Home Meds: 16:38 Eliquis 2.5 mg Oral tablet 1 tab 2 times per day [Active]; ss - PMHx: 16:38 Cerebrovascular accident; diabetes mellitus; Hypertensive disorder; Myocardial ss infarction; - PSHx: 16:38 Coronary artery bypass graft; pacemaker; Stented artery; ss - Immunization history:: Adult Immunizations up to date. - Infectious Disease History:: Denies. - Social history:: Smoking status: Patient denies any tobacco usage or history of. Screenin:30 [facility] ED Fall Risk Assessment (Adult) History of falling in the last 3 months, rs5 including since admission Yes- single mechanical fall (1 pt) Confusion or Disorientation No (0 pts) Intoxicated or Sedated No (0 pts) Impaired Gait Yes (1 pt) Mobility Assist Device Used Yes (1 pt) Altered Elimination No (0 pt) Score/Fall Risk Level 3 or more points = High Risk Oriented to surroundings, Maintained a safe environment, Hourly rounding (assess needs \T\ fall precautionary measures) done. Abuse screen: Denies threats or abuse. Nutritional screening: No deficits noted. Tuberculosis screening: No symptoms or risk factors identified. Assessment: 16:30 General: Appears in no apparent distress. uncomfortable, Behavior is calm, cooperative. rs5 Pain: Complains of pain in neck and back of head Pain currently is 5 out of 10 on a pain scale. Quality of pain is described as aching, Is continuous. 16:30 Neuro: Level of Consciousness is awake, alert, obeys commands, Oriented to person, rs5 place, time, situation. Cardiovascular: Patient's skin is warm and dry. Respiratory: Airway is patent Respiratory effort is even, unlabored, Respiratory pattern is regular, symmetrical. GI: Abdomen is round non-distended, Abd is soft and non tender X 4 quads. : No signs and/or symptoms were reported regarding the genitourinary system. EENT: No signs and/or symptoms were reported regarding the EENT system. Derm: Skin is intact, Skin is pink, warm \T\ dry. Musculoskeletal: Range of motion: intact in all extremities. 16:33 Reassessment: c collar in place. rs5 17:45 Reassessment: Patient and/or family updated on plan of care and expected duration. Pain rs5 level reassessed. Patient is alert, oriented x 3, equal unlabored respirations, skin warm/dry/pink. 18:45 Reassessment: insulin drip faxed to pharmacy . rs5 18:55 Reassessment: Patient and/or family updated on plan of care and expected duration. Pain rs5 level reassessed. Patient is alert, oriented x 3, equal unlabored respirations, skin warm/dry/pink. Vital Signs: 16:23 BP 118 / 62; Pulse 86; Resp 18; Temp 97.7(O); Pulse Ox 98% on R/A; Weight 99.79 kg; ss Height 5 ft. 6 in. ; Pain 3/10; 18:01 BP 125 / 71; Pulse 80; Resp 17; Pulse Ox 99% on R/A; rs5 19:57 BP 117 / 78; Pulse 23; Resp 18 S; Pulse Ox 98% on R/A; br2 21:15 BP 136 / 96; Pulse 85; Resp 18; Pulse Ox 100% ; br2 16:23 Body Mass Index 35.51 (99.79 kg, 167.64 cm) ss 16:23 Pain Scale: Adult ss ED Course: 16:23 Patient arrived in ED. rs5 16:23 Jessica Becerra MD is Attending Physician. gb1 16:30 Patient has correct armband on for positive identification. Bed in low position. Call rs5 light in reach. Side rails up X2. 16:30 No provider procedures requiring assistance completed. Maintain EMS IV. Dressing rs5 intact. Good blood return noted. Site clean \T\ dry. Gauge \T\ site: 20g lac. Flushed with 10 mL NS. Patient maintains SpO2 saturation greater than 95% on room air. 16:38 Triage completed. ss 16:49 Gustavo Stephenson, ZINA is Primary Nurse. rs5 17:11 CT Head C Spine In Process Unspecified. EDMS 18:34 TC CALLED TO INITIATE PATIENT TRANSFER, SPOKE WITH ROSY. ty 19:00 Arm band placed on. br2 19:47 Dr. Becerra on doc to doc with Melody. ty 19:57 Report received from ZINA CERRATO. br2 20:23 Chest Single View XRAY In Process Unspecified. EDMS 20:57 pt was accepted to [facility], Accepting Dr. Taylor Barnes \T\ 1999. Admin approval given kmf by Candelaria Borja \T\ 1999. [facility] to transfer. 21:56 Patient transferred, IV remains in place. br2 Administered Medications: 18:45 Drug: NS 0.9% IV 1000 ml IV at 1000 ml once; to be given as a bolus over 60 minutes rs5 Route: IV; Rate: 1000 ml; Site: left antecubital; 19:20 Drug: Insulin Drip - (Insulin Regular Human IVP 100 units, NS 0.9% IV 100 ml) IV at br2 calculated rate continuous; Standard concentration 1unit/ml; Dose for DKA is 0.1 units/kg/hr {Co-Signature: mt4 (Jong Duggan RN).} Route: IV; Rate: 9 units/hr; Site: left antecubital; Medication: 19:12 VIS not applicable for this client. rs5 Outcome: 18:27 ER care complete, transfer ordered by . marta 21:55 Transferred by ground EMS to [facility], [facility], Transfer form completed. br2 X-rays sent w/ patient. 21:55 Condition: stable 21:55 Instructed on the need for transfer, 21:58 Patient left the ED. br2 Signatures: Dispatcher [employer] EDMS Angely Molina, RN RN Gustavo Stephenson RN RN rs5 Jessica Becerra MD MD gb1 Mechelle Manuel Tylor ty Riddle, Belinda, RN RN br2 Jong Duggan RN mt4
--- NOTE | 2024-11-10 18:28 | EDPHYS ---
Physician Documentation [facility] Name: Ector Trivedi Jr Age: 63 yrs Sex: Male : 1960 Arrival Date: 11/10/2024 Time: 16:09 Bed 14 Private MD: ED Physician Jessica Becerra HPI: 11/10 18:34 This 63 yrs old Male presents to ER via EMS with complaints of Fall Injury. gb1 18:34 63-year-old male with history of poorly controlled diabetes on insulin, CVA, gb1 hypertension and history of an MRI comes after he got dizzy and fell. Patient's been noncompliant and out of his insulin for 6 to 7 weeks now. He does not regularly check his blood sugars. His mouth has been very dry and he has been just not feeling well last few days. He denies any nausea, vomiting or diarrhea. He denies any fevers chills, cough chest pain or shortness of breath.. Historical: - Allergies: 16:38 PENICILLINS; ss - Home Meds: 16:38 Eliquis 2.5 mg Oral tablet 1 tab 2 times per day [Active]; ss - PMHx: 16:38 Cerebrovascular accident; diabetes mellitus; Hypertensive disorder; Myocardial ss infarction; - PSHx: 16:38 Coronary artery bypass graft; pacemaker; Stented artery; ss - Immunization history:: Adult Immunizations up to date. - Infectious Disease History:: Denies. - Social history:: Smoking status: Patient denies any tobacco usage or history of. Exam: 18:34 Constitutional: This is a well developed, well nourished patient who is awake, alert, gb1 in mild distress, VERY DRY MM/cotton mouth present. Head/Face: Normocephalic, atraumatic. Eyes: Pupils equal round and reactive to light, extra-ocular motions intact. Lids and lashes normal. Conjunctiva and sclera are non-icteric and not injected. Cornea within normal limits. Periorbital areas with no swelling, redness, or edema. Neck: Trachea midline, no thyromegaly or masses palpated, and no cervical lymphadenopathy. Supple, full range of motion without nuchal rigidity, or vertebral point tenderness. No Meningismus. Chest/axilla: Normal chest wall appearance and motion. Nontender with no deformity. No lesions are appreciated. Cardiovascular: Regular rate and rhythm with a normal S1 and S2. No gallops, murmurs, or rubs. Normal PMI, no JVD. No pulse deficits. Respiratory: Lungs have equal breath sounds bilaterally, clear to auscultation and percussion. No rales, rhonchi or wheezes noted. No increased work of breathing, no retractions or nasal flaring. Back: No spinal tenderness. No costovertebral tenderness. Full range of motion. Skin: Warm, dry with normal turgor. Normal color with no rashes, no lesions, and no evidence of cellulitis. MS/ Extremity: Pulses equal, no cyanosis. Neurovascular intact. Full, normal range of motion. Neuro: Awake and alert, GCS 15, oriented to person, place, time, and situation. Cranial nerves II-XII grossly intact. Motor strength 5/5 in all extremities. Sensory grossly intact. Cerebellar exam normal. Normal gait. Vital Signs: 16:23 BP 118 / 62; Pulse 86; Resp 18; Temp 97.7(O); Pulse Ox 98% on R/A; Weight 99.79 kg; ss Height 5 ft. 6 in. ; Pain 3/10; 18:01 BP 125 / 71; Pulse 80; Resp 17; Pulse Ox 99% on R/A; rs5 19:57 BP 117 / 78; Pulse 23; Resp 18 S; Pulse Ox 98% on R/A; br2 21:15 BP 136 / 96; Pulse 85; Resp 18; Pulse Ox 100% ; br2 16:23 Body Mass Index 35.51 (99.79 kg, 167.64 cm) ss 16:23 Pain Scale: Adult ss MDM: 16:23 Medical Screening Exam initiated gb1 18:34 Data reviewed: vital signs, nurses notes. ED course: 63-year-old male with history of gb1 into dependent diabetes and has been noncompliant with his insulin. He has an anion gap is elevated and a blood sugar greater than 600. Concern for acute DKA at this time. Also consider HHS, doubt CVA or acute intracranial injury. Consider subdural hematoma versus skull fracture. Patient needs IV insulin drip and the medical ICU. Patient be transferred out to a medical ICU due to no ICU bed availability here Wil.. 20:33 ED course: VBG is normal, at this time, this is likely uncontrolled IDDM and when gb1 corrected for sugar, acute hyponatremia is likely 2/2 dehydration/starvation ketosis/ HHNS.. 11/10 16:43 Order name: Basic Metabolic Panel; Complete Time: 17:25 gb1 11/10 16:43 Order name: CBC with Diff; Complete Time: 17:23 gb1 11/10 17:26 Order name: BETA HYDROXYBUTYRATE; Complete Time: 19:47 gb1 11/10 17:26 Order name: ABG: VBG please gb1 11/10 18:30 Order name: Hepatic Function; Complete Time: 19:47 gb1 11/10 18:30 Order name: Lipase; Complete Time: 19:47 gb1 11/10 18:30 Order name: Magnesium; Complete Time: 19:47 gb1 11/10 18:30 Order name: Phosphorus; Complete Time: 19:47 gb1 11/10 19:49 Order name: UAM gb11/10 20:01 Order name: SARS RAPID gb1 11/10 20:01 Order name: Flu gb1 11/10 20:57 Order name: Glucose, Ancillary Testing EDMS 11/10 16:43 Order name: CT Head C Spine; Complete Time: 17:23 gb1 11/10 20:01 Order name: Chest Single View XRAY gb1 11/10 16:43 Order name: Labs collected and sent; Complete Time: 17:15 gb1 11/10 18:30 Order name: Cardiac monitoring; Complete Time: 19:10 gb1 11/10 18:30 Order name: EKG - Nurse/Tech; Complete Time: 19:10 gb1 11/10 18:30 Order name: IV Saline Lock; Complete Time: 19:10 gb1 11/10 18:30 Order name: NPO; Complete Time: 19:10 gb1 11/10 18:30 Order name: O2 Per Protocol; Complete Time: 19:10 gb1 11/10 18:30 Order name: O2 Sat Monitoring; Complete Time: 19:10 gb1 Administered Medications: 18:45 Drug: NS 0.9% IV 1000 ml IV at 1000 ml once; to be given as a bolus over 60 minutes rs5 Route: IV; Rate: 1000 ml; Site: left antecubital; 19:20 Drug: Insulin Drip - (Insulin Regular Human IVP 100 units, NS 0.9% IV 100 ml) IV at br2 calculated rate continuous; Standard concentration 1unit/ml; Dose for DKA is 0.1 units/kg/hr {Co-Signature: mt4 (Jong Duggan RN).} Route: IV; Rate: 9 units/hr; Site: left antecubital; Disposition Summary: 11/10/24 18:27 Transfer Ordered Notes: Reason: Higher level of care gb1 Condition: Critical gb1 Problem: an acute exacerbation gb1 Symptoms: have worsened gb1 Transfer Location: Other [facility](11/10/24 20:02) gb1 Accepting Physician: Dr. Nowrood ([facility])(11/10/24 21:58) br2 Diagnosis - Diabetes mellitus due to underlying condition with ketoacidosis gb1 - Dehydration gb1 - Fall on same level, unspecified gb1 - Acute kidney failure, unspecified gb1 Forms: - Medication Reconciliation Form gb1 - SBAR form gb1 Critical care time excluding procedures: 18:34 Critical care time: Bedside Care: 100 minutes, Consultation: 10 minutes, Family gb1 Intervention: 20 minutes. Total time: 130 minutes Signatures: Dispatcher [employer] EDMS Angely Molina RN RN ss Gustavo Stephenson RN RN rs5 Jessica Becerra MD MD gb1 Mel Armstrong RN RN br2 Jong Duggan RN mt4 Corrections: (The following items were deleted from the chart) 16:43 16:43 BASIC METABOLIC PANEL+C.LAB.BRZ ordered. EDMS EDMS 16:43 16:43 CBC+H.LAB.BRZ ordered. EDMS EDMS 16:44 16:44 Head C Spine MPR Wo Con+CT.RAD.BRZ ordered. EDMS EDMS 17:27 17:27 Arterial Blood Gas+RC.LAB.BRZ ordered. EDMS EDMS 18:28 18:27 Dr. Fagan gb1 gb1 18:31 18:31 HEPATIC FUNCTION+C.LAB.BRZ ordered. EDMS EDMS 18:31 18:31 LIPASE+C.LAB.BRZ ordered. EDMS EDMS 18:31 18:31 MAGNESIUM+C.LAB.BRZ ordered. EDMS EDMS 18:31 18:31 PHOSPHORUS+C.LAB.BRZ ordered. EDMS EDMS 20:02 20:02 SARS-COV-2 Antigen Rapid+I.LAB.BRZ ordered. EDMS EDMS 20:02 20:02 Influenza Screen (A \T\ B)+BA.LAB.BRZ ordered. EDMS EDMS 20:02 20:02 Chest Single View+RAD.RAD.BRZ ordered. EDMS EDMS 20:02 18:27 [facility] gb1 gb1 20:02 18:28 Dr. Fagan gb1 gb1 21:58 20:02 Dr. Norwood ([facility]) gb1 br2
[2024-11-10] MEDS ORDERED: NA CHLORIDE 0.9% 1,000 ML ONE ×2 (18:50→19:11)
[2024-11-10] MEDS ORDERED: GLUCAGON 1 MG/VIAL IM PRN (18:53)
[2024-11-10] MEDS ORDERED: D50W 25 GM/50 ML SYRINGE IV PRN (18:53)
[2024-11-10] MEDS ORDERED: INSULIN REGULAR, HUMAN 100 UNIT in NA CHLORIDE 0.9% 100 ML IV SCH (18:55)
[2024-11-10 19:16] LABS: Albumin/Globulin Ratio 0.7 (1.1-1.8); Bilirubin Direct 0.4 mg/dL (0-0.2); Bilirubin Indirect, Calculated 0.7 mg/dL (0.2-0.8); Bilirubin Total 1.1 mg/dL (0.2-1.0); Globulin 4.5 g/dL (2.3-3.5); Magnesium 1.8 mg/dL (1.6-2.4); Protein, Total 7.5 g/dL (6.4-8.2)
[2024-11-10 20:23] LABS: Sqamous Epithelial <5 /HPF (None Seen); Urine Bacteria None Seen /HPF (<20); Urine Bilirubin NEGATIVE (Negative); Urine Blood Negative (Negative); Urine Clarity Clear (Clear); Urine Color Light-Yellow (Yellow); Urine Crystals Unidentified Few /HPF (None Seen); Urine Culture Reflex Order NOT NEEDED; Urine Glucose 4+ (Over) (Negative); Urine Ketones NEGATIVE (Negative); Urine Micro Reflex YN NO BILL MICROSCOPIC; Urine Nitrite NEGATIVE (Negative); Urine Protein NEGATIVE (Negative); Urine RBC <5 /HPF (None Seen); Urine Urobilinogen Normal (Normal); Urine WBC <5 /HPF (<5)
[2024-11-10 20:38] LABS: SARS-CoV-2 Antigen CONTROL BLUE LINE VIS/BG OK; SARS-CoV-2 Antigen Rapid Res Negative (Negative)
--- NOTE | 2024-11-10 20:39 | RAD REPORT ---
EXAM: Chest Single View HISTORY: COUGH COMPARISON: 06/23/2024 FINDINGS: LUNGS/PLEURA: The lungs are clear. No pleural effusions or pneumothorax. No pulmonary edema. MEDIASTINUM: The mediastinal silhouette is within normal limits. CARDIAC: Mild cardiomegaly UPPER ABDOMEN: No significant abnormality. BONES: Sternotomy. No acute abnormality. LINES/TUBES/OTHER: Defibrillator IMPRESSION: No evidence of acute cardiopulmonary disease.
[2024-11-11 03:52] VITALS: TEMP 97.7
[2024-11-11 03:57] VITALS: BP 136/96; O2SAT 100
== END 2024-11-10 21:58 | disposition short-term general hospital (02) ==
LOC: ER 16:09
DX: E11.10 Type 2 diabetes mellitus with ketoacidosis without coma (principal); E86.0 Dehydration; N17.9 Acute kidney failure, unspecified; W18.30XA Fall on same level, unspecified, initial encounter; I10 Essential (primary) hypertension; Z95.1 Presence of aortocoronary bypass graft; Z95.0 Presence of cardiac pacemaker; Z11.52 Encounter for screening for COVID-19; Z86.73 Personal history of transient ischemic attack (TIA), and cerebral infarction without residual deficits; Z79.01 Long term (current) use of anticoagulants
CPT/HCPCS: 85025; 81001; 80048; 36415; 83735; 84100; 82947; 80076; 83690; 82010; 87804 ×2; 70450; 72125; 71045; 96374; 99285; 87811; J7030 ×2